=== PATIENT | female | born 1980 | race American Indian/Alaskan Native ===

== ENCOUNTER 2017-10-30 22:28 | Emergency (ER) | payer OTHER | END 2017-10-30 22:30 | disposition left against medical advice (07) | LOC: ED 22:28 | DX: R55 Syncope and collapse (principal); Z88.8 Allergy status to other drugs, medicaments and biological substances; Z53.21 Procedure and treatment not carried out due to patient leaving prior to being seen by health care provider ==

== ENCOUNTER 2019-01-07 17:36 | Emergency (ER) | payer SELFPAY ==
--- NOTE | 2019-01-07 17:57 | Emergency Department Report ---
ED Fall HPI - General Stated Complaint: L HIP/ELBOW INJURY/VOMITING Time Seen by Provider: 01/07/19 17:49 Source: patient Mode of arrival: Stretcher Limitations: Altered Mental Status, Physical Limitation - History of Present Illness Initial Comments: Patient is a 38-year-old female that presents emergent complaints of fall secondary to EtOH. Patient is complaining of headache, head injury, neck pain, left shoulder and arm pain, abdominal pain, left hip and left pelvic pain, left thigh pain. Patient states her pain is 10 out of 10. Patient states her pain is worse with movement and better with lying still. Patient states she drank multiple beers and states she drinks daily. MD Complaint: fall -: Sudden - Related Data Home Medications Medication Instructions Recorded Confirmed Last Taken Metoprolol [Lopressor TAB] 50 mg PO BID 09/26/14 09/26/14 09/26/14 Previous Rx's Medication Instructions Recorded Last Taken Type HYDROcodone/APAP 5-325 [Groom 1 each PO Q6HR PRN #20 tablet 09/26/14 Unknown Rx 5/325] Ibuprofen [Motrin] 600 mg PO Q8H PRN #50 tablet 09/26/14 Unknown Rx Famotidine [Pepcid] 20 mg PO BID #40 tablet 10/08/14 Unknown Rx Lansoprazole [Prevacid 24Hr] 30 mg PO QDAY #30 capsule. 10/08/14 Unknown Rx Penicillin Vk [Veetids TAB] 500 mg PO QID #28 tablet 03/18/15 Unknown Rx Acetaminophen/Codeine [Tylenol 1 tab PO TID PRN #10 tab 01/08/19 Unknown Rx /Codeine # 3 tab] Allergies Allergy/AdvReac Type Severity Reaction Status Date / Time tramadol Allergy Hives Verified 09/26/14 17:25 ED Review of Systems ROS: Stated complaint: L HIP/ELBOW INJURY/VOMITING Other details as noted in HPI Constitutional: denies: chills, fever Eyes: denies: eye pain, eye discharge, vision change ENT: denies: ear pain, throat pain Respiratory: denies: cough, shortness of breath, wheezing Cardiovascular: denies: chest pain, palpitations Endocrine: no symptoms reported Gastrointestinal: abdominal pain. denies: nausea, diarrhea Genitourinary: denies: urgency, dysuria, discharge Musculoskeletal: back pain. denies: joint swelling, arthralgia Skin: denies: rash, lesions Neurological: headache. denies: weakness, paresthesias Psychiatric: denies: anxiety, depression Hematological/Lymphatic: denies: easy bleeding, easy bruising ED Past Medical Hx - Past Medical History Previous Medical History?: Yes Hx Psychiatric Treatment: No Additional medical history: history of SVT - Surgical History Past Surgical History?: No - Family History Family history: no significant - Social History Smoking Status: Current Every Day Smoker Substance Use Type: Alcohol - Medications Home Medications: Home Medications Medication Instructions Recorded Confirmed Last Taken Type HYDROcodone/APAP 5-325 [Groom 1 each PO Q6HR PRN #20 tablet 09/26/14 Unknown Rx 5/325] Ibuprofen [Motrin] 600 mg PO Q8H PRN #50 tablet 09/26/14 Unknown Rx Metoprolol [Lopressor TAB] 50 mg PO BID 09/26/14 09/26/14 09/26/14 History Famotidine [Pepcid] 20 mg PO BID #40 tablet 10/08/14 Unknown Rx Lansoprazole [Prevacid 24Hr] 30 mg PO QDAY #30 capsule. 10/08/14 Unknown Rx Penicillin Vk [Veetids TAB] 500 mg PO QID #28 tablet 03/18/15 Unknown Rx Acetaminophen/Codeine [Tylenol 1 tab PO TID PRN #10 tab 01/08/19 Unknown Rx /Codeine # 3 tab] ED Physical Exam - General Limitations: No Limitations General appearance: alert, in no apparent distress, appears intoxicated - Head Head exam: Present: atraumatic, normocephalic - Eye Eye exam: Present: normal appearance, PERRL Pupils: Present: normal accommodation - ENT ENT exam: Present: mucous membranes dry - Neck Neck exam: Present: normal inspection, tenderness - Respiratory Respiratory exam: Present: normal lung sounds bilaterally. Absent: respiratory distress, wheezes, rales - Cardiovascular Cardiovascular Exam: Present: regular rate, normal rhythm. Absent: systolic murmur, diastolic murmur, rubs, gallop - GI/Abdominal GI/Abdominal exam: Present: soft, tenderness, normal bowel sounds. Absent: distended, guarding, rebound - Rectal Rectal exam: Present: deferred - Extremities Exam Extremities exam: Present: normal inspection, tenderness (left hip tenderness. Left thigh tenderness. Left upper extremity tenderness), other (abrasion noted to left elbow) - Back Exam Back exam: Present: normal inspection, tenderness, vertebral tenderness - Neurological Exam Neurological exam: Present: alert, oriented X3 - Skin Skin exam: Present: warm, dry, normal color, abrasion. Absent: rash ED Course Vital Signs 01/07/19 01/07/19 01/07/19 17:51 19:30 22:00 Temperature 98.6 F Pulse Rate 118 H 95 H 91 H Respiratory 18 16 18 Rate Blood Pressure 120/75 Blood Pressure 110/70 121/84 [Right] O2 Sat by Pulse 98 98 97 Oximetry - Reevaluation(s) Reevaluation #1: Initial evaluation done. Patient was placed in a c-collar by nursing immediately upon arrival due to the patient having neck pain and EtOH. Patient arrived with EMS not in a c-collar. Report received from EMS. 01/07/19 17:49 Reevaluation #2: Patient is complaining of severe pain. Patient will be given another milligram of Dilaudid. CTs are pending 01/07/19 19:40 Reevaluation #3: Discussed all results with patient. Patient will have a repeat blood alcohol level. Patient states she is in pain. Patient will be given Dilaudid. Patient will also be given a food,. C-collar removed 01/07/19 23:27 Reevaluation #4: Discussed all results the patient. I discussed plan of care patient. Patient is stable for discharge however the patient needs to be legally sober or discharge to the care of a family member. Patient given discharge instructions. Patient voiced understanding of discharge instructions. Patient was understanding of plan of care. Patient agrees with plan of care. 01/08/19 02:39 Reevaluation #5: Patient's is here to pickle processor the patient. Patient we signed out to the care and responsibility of the patient's . 01/08/19 02:57 ED Medical Decision Making - Lab Data Result diagrams: 01/07/19 18:09 01/07/19 23:35 - Radiology Data Radiology results: report reviewed, image reviewed interpreted by me: All x-rays negative for fractures. All CT is negative for acute findings. All reports reviewed. No fracture in the C-spine. No fracture in the L or T-spine. No acute findings or signs of trauma on abdominal CT. - Medical Decision Making Condition is a 38-year-old female presents emergency room with a fall patient complaining of multiple complaints. Patient's complaints include neck pain, back pain, abdominal pain, left hip pain, left thigh pain, left shoulder pain, left arm pain. Patient had multiple CTs done and all were negative. Patient had multiple x-rays done and all were negative. Patient also found to have left elbow pain and left elbow abrasion. Patient remained in the ER until patient's family is here to take responsibility for the patient's patient is clinically drunk. Patient also found to be acutely intoxicated. Patient's blood alcohol level elevated. Patient given fluids and banana bag. Patient had also pain and was given Dilaudid. Patient discharged home with Tylenol 3. Patient has taken Tylenol 3 in the past. Patient is allergic to tramadol. - Differential Diagnosis intoxication. Fall. Pain. Strain, contusion, fracture. Critical care attestation.: If time is entered above; I have spent that time in minutes in the direct care of this critically ill patient, excluding procedure time. ED Disposition Clinical Impression: Face pain, Elbow abrasion, non-infected, Left forearm pain, Left thigh pain, Neck pain Acute alcohol intoxication Qualifiers: Complication of substance-induced condition: uncomplicated Qualified Code(s): F10.920 - Alcohol use, unspecified with intoxication, uncomplicated Fall Qualifiers: Encounter type: initial encounter Qualified Code(s): W19.XXXA - Unspecified fall, initial encounter Left shoulder pain Qualifiers: Chronicity: acute Qualified Code(s): M25.512 - Pain in left shoulder Head injury Qualifiers: Encounter type: initial encounter Qualified Code(s): S09.90XA - Unspecified injury of head, initial encounter Back pain Qualifiers: Back pain location: low back pain Chronicity: acute Back pain laterality: midline Sciatica presence: without sciatica Qualified Code(s): M54.5 - Low back pain Abdominal pain Qualifiers: Abdominal location: lower abdomen, unspecified Qualified Code(s): R10.30 - Lower abdominal pain, unspecified Hip pain Qualifiers: Laterality: left Qualified Code(s): M25.552 - Pain in left hip Elbow pain Qualifiers: Laterality: left Qualified Code(s): M25.522 - Pain in left elbow Facial contusion Qualifiers: Encounter type: initial encounter Qualified Code(s): S00.83XA - Contusion of other part of head, initial encounter Headache Qualifiers: Headache type: unspecified Headache chronicity pattern: acute headache Intractability: not intractable Qualified Code(s): R51 - Headache Contusion of hip, left Qualifiers: Encounter type: initial encounter Qualified Code(s): S70.02XA - Contusion of left hip, initial encounter Disposition: TO HOME OR SELFCARE Is pt being admited?: No Does the pt Need Aspirin: No Condition: Stable Instructions: Low Back Strain (ED), Alcohol Intoxication (ED), Abuse of Alcohol (ED), At-Risk Alcohol Use (ED), Acute Low Back Pain (ED), Cervical Sprain (ED), Abrasion (ED), Back Pain (ED), Fall Prevention (ED) Additional Instructions: Patient to follow up with primary care in 2-3 days. Patient to follow-up with orthopedist in 2-3 days. Patient to return to ER if condition worsens. Patient to decrease alcohol intake. patient to follow-up with a call rehabilitation center. Patient to take Tylenol or ibuprofen when necessary for pain. Patient take meds as directed. Patient increase water. Prescriptions: Acetaminophen/Codeine [Tylenol /Codeine # 3 tab] 1 tab PO TID PRN #10 tab PRN Reason: Pain , Severe (7-10) Referrals: PRIMARY CARE, [Primary Care Provider] - 2-3 Days Time of Disposition: 02:42
[2019-01-07 18:19] LABS: Hematocrit 31.3 % (30.3-42.9); Hemoglobin 9.5 gm/dl (10.1-14.3); Mean Corpuscular HGB Conc 30 % (30-34); Mean Corpuscular Volume 75 fl (79-97); Platelet Count 270 K/mm3 (140-440); Red Blood Count 4.19 M/mm3 (3.65-5.03); Red Cell Distribution Width 19.7 % (13.2-15.2)
[2019-01-07] MEDS ORDERED: NACL 0.9% 1000 ML 1,000 ML IV ONE (18:39)
[2019-01-07 18:40] LABS: Albumin 4.2 g/dL (3.9-5); BUN/Creatinine Ratio 11; Blood Urea Nitrogen 8 mg/dL (7-17); Calcium 8.6 mg/dL (8.4-10.2); Hemolysis Index 102
[2019-01-07] MEDS ORDERED: DILAUDID IV ONE ×3 (18:40→23:25)
[2019-01-07] MEDS ORDERED: ZOFRAN IV ONE (18:40)
[2019-01-07] MEDS ORDERED: ZOFRAN ONE (18:43)
[2019-01-07] MEDS ORDERED: DILAUDID ONE (18:43)
[2019-01-07 18:58] LABS: Alanine Aminotransferase 31 units/L (7-56)
[2019-01-07] MEDS ORDERED: VITAMIN B-1 100 MG, FOLVITE 1 MG, INFUVITE 10 ML in NACL 0.9% 1000 ML 1,000 ML IV ONE (19:15)
[2019-01-07 19:38] LABS: Bilirubin,Urine NEG (Negative); Blood,Urine MOD (Negative); Color,Urine Yellow (Yellow); Urobilinogen,Urine < 2.0 mg/dL (<2.0)
[2019-01-07 19:42] LABS: Amphetamine Screen,Urine PRESUMPTIVE NEGATIVE; Benzodiazepines Screen,Urine PRESUMPTIVE NEGATIVE; Cannabinoid Screen,Urine PRESUMPTIVE NEGATIVE; Cocaine Screen,Urine PRESUMPTIVE NEGATIVE; Methadone Screen,Urine PRESUMPTIVE NEGATIVE; Opiate Screen,Urine PRESUMPTIVE NEGATIVE
--- NOTE | 2019-01-07 20:55 | Cat Scan Report ---
CT BRAIN: 01/07/2019 INDICATION / CLINICAL INFORMATION: Trauma. COMPARISON: None available. FINDINGS: BRAIN/INTRACRANIAL STRUCTURES: Unenhanced CT images of the brain demonstrate no evidence of acute int racranial abnormality. Ventricles and sulci are normal in size and shape. There is no evidence of hemorrhage or mass. There are no abnormal extra-axial fluid collections. EXTRACRANIAL STRUCTURES: Unremarkable. IMPRESSION: Negative unenhanced CT of the brain. All CT scans at this location are performed using dose reduction to ALARA by means of automated expos ure control. Signer Name: Jay Leon MD Signed: 01/07/2019 8:51 PM Workstation Name: [id number]
--- NOTE | 2019-01-07 20:58 | Cat Scan Report ---
FACIAL CT 01/07/2019 HISTORY: Trauma FINDINGS: CT images of the facial bones were obtained. Images are evaluated in the axial, coronal, an d sagittal planes. There is no evidence of acute osseous injury. Paranasal sinuses are clear. Orbital structures are normal. IMPRESSION: No acute abnormality. All CT scans at this location are performed using dose reduction to ALARA by means of automated expos ure control. Signer Name: Jay Leon MD Signed: 01/07/2019 8:53 PM Workstation Name: [id number]
--- NOTE | 2019-01-07 21:00 | Cat Scan Report ---
CT CERVICAL SPINE: 01/07/2019 INDICATION / CLINICAL INFORMATION: Trauma. COMPARISON: None available. FINDINGS: CT images of the cervical spine were obtained. Images are evaluated in the axial, coronal, and sagit edwin planes. There is no evidence of acute abnormality. Vertebral body alignment is normal. LEVEL BY LEVEL ANALYSIS: . CRANIOCERVICAL JUNCTION: Unremarkable. PARASPINAL STRUCTURES: Unremarkable. IMPRESSION: No acute abnormality. All CT scans at this location are performed using dose reduction to ALARA by means of automated expos ure control. Signer Name: Jay Leon MD Signed: 01/07/2019 8:56 PM Workstation Name: [id number]
--- NOTE | 2019-01-07 21:02 | Cat Scan Report ---
CT thoracic SPINE: 01/07/2019 INDICATION / CLINICAL INFORMATION: Trauma. COMPARISON: None available. FINDINGS: CT images of the thoracic spine were obtained. Images are evaluated in the axial, coronal, and sagit edwin planes. There is no evidence of acute abnormality. Vertebral body alignment is unremarkable. A mild left conv ex scoliosis is present. PARASPINAL STRUCTURES: Unremarkable. IMPRESSION: No acute abnormality. All CT scans at this location are performed using dose reduction to ALARA by means of automated expos ure control. Signer Name: Jay Leon MD Signed: 01/07/2019 8:58 PM Workstation Name: [id number]
--- NOTE | 2019-01-07 21:14 | Cat Scan Report ---
CT LUMBAR SPINE: 01/07/2019 INDICATION / CLINICAL INFORMATION: Trauma. COMPARISON: None available. FINDINGS: CT images of the lumbar spine were obtained. Images are evaluated in the axial, coronal, and sagitta l planes. There is no evidence of acute abnormality. Vertebral body height and alignment is normal. There is no evidence of disc herniation or nerve root compression. PARASPINAL STRUCTURES: Unremarkable. IMPRESSION: No acute abnormality. All CT scans at this location are performed using dose reduction to ALARA by means of automated expos ure control. Signer Name: Jay Leon MD Signed: 01/07/2019 9:10 PM Workstation Name: [id number]
--- NOTE | 2019-01-07 21:34 | Cat Scan Report ---
CT ABDOMEN AND PELVIS WITH CONTRAST INDICATION: Abdominal pain after fall. Alcohol intoxication. COMPARISON: No relevant prior imaging study available. TECHNIQUE: Axial, coronal and sagittal CT imaging of the abdomen and pelvis was performed after inje ction of 100 mL Omnipaque [address] scans at this location are performed using CT dose re duction for ALARA by means of automated exposure control. FINDINGS: LOWER CHEST: There is mild dependent bilateral atelectasis. No additional significant abnormality. LIVER: Generalized steatosis is noted without an additional significant abnormality. BILIARY: No significant abnormality. PANCREAS: No significant abnormality. SPLEEN: No significant abnormality. ADRENALS: No significant abnormality. KIDNEYS AND URETERS: A subcentimeter cyst is seen along the left lower renal pole. No additional sign ificant abnormality. GI TRACT: No significant abnormality of the stomach, small bowel or colon. Unremarkable appendix. PERITONEUM: No free fluid. No free air. No fluid collection. LYMPH NODES: No significant adenopathy. VASCULATURE: No significant abnormality. URINARY BLADDER: No significant abnormality. REPRODUCTIVE ORGANS: No significant abnormality. ADDITIONAL FINDINGS: None. SKELETAL SYSTEM: No acute abnormality. IMPRESSION: 1. No acute abnormality of the abdomen or pelvis. 2. Additional findings as above. Signer Name: Ben Cheema MD Signed: 01/07/2019 9:29 PM Workstation Name: [id number]
--- NOTE | 2019-01-07 22:56 | XRay Report ---
LEFT ELBOW 4 VIEWS INDICATION / CLINICAL INFORMATION: Left elbow pain after fall. COMPARISON: None available. FINDINGS: BONES and JOINT(S): No acute fracture or subluxation. No significant arthritis. SOFT TISSUES: No significant abnormality. ADDITIONAL FINDINGS: None. IMPRESSION: No significant abnormality of the left elbow. Signer Name: Ben Cheema MD Signed: 01/07/2019 10:51 PM Workstation Name: [id number]
--- NOTE | 2019-01-07 22:57 | XRay Report ---
LEFT FEMUR 4 VIEWS INDICATION / CLINICAL INFORMATION: Left leg pain after fall. COMPARISON: None available. FINDINGS: BONES and JOINT(S): No acute fracture or subluxation. No significant arthritis. SOFT TISSUES: No significant abnormality. ADDITIONAL FINDINGS: None. IMPRESSION: No acute abnormality of the left femur. Signer Name: Ben Cheema MD Signed: 01/07/2019 10:53 PM Workstation Name: [id number]
--- NOTE | 2019-01-07 22:57 | XRay Report ---
LEFT SHOULDER 3 VIEWS INDICATION / CLINICAL INFORMATION: Left shoulder pain after fall. COMPARISON: None available. FINDINGS: BONES and JOINT(S): No acute fracture or subluxation. No significant arthritis. SOFT TISSUES: No significant abnormality. ADDITIONAL FINDINGS: None. IMPRESSION: No acute abnormality of the left shoulder. Signer Name: Ben Cheema MD Signed: 01/07/2019 10:52 PM Workstation Name: [id number]
[2019-01-08 00:06] LABS: BUN/Creatinine Ratio 13; Blood Urea Nitrogen 8 mg/dL (7-17); Calcium 8.5 mg/dL (8.4-10.2); Hemolysis Index 48
[2019-01-08] MEDS ORDERED: NACL 0.9% 1000 ML 1,000 ML IV ONE (00:56)
[2019-01-08 01:17] VITALS: BP 121/84
[2019-01-08] MEDS ORDERED: ZOFRAN ONE (02:39)
[2019-01-08] MEDS ORDERED: BOOSTRIX IM ONE (02:43)
[2019-01-08] MEDS ORDERED: ZOFRAN IV ONE (02:47)
== END 2019-01-08 03:00 | disposition home or self-care (01) ==
LOC: ED 17:36
DX: S00.83XA Contusion of other part of head, initial encounter (principal); S70.02XA Contusion of left hip, initial encounter; S50.312A Abrasion of left elbow, initial encounter; F10.920 Alcohol use, unspecified with intoxication, uncomplicated; R10.30 Lower abdominal pain, unspecified; M25.512 Pain in left shoulder; M54.2 Cervicalgia; M79.652 Pain in left thigh; F17.200 Nicotine dependence, unspecified, uncomplicated; Z79.899 Other long term (current) drug therapy; Z88.6 Allergy status to analgesic agent; W18.30XA Fall on same level, unspecified, initial encounter; Y93.89 Activity, other specified; Y92.89 Other specified places as the place of occurrence of the external cause; Y99.8 Other external cause status
CPT/HCPCS: 36415; 70450; 70486; 72125; 72128; 72131; 73030; 73080; 73552; 74177; 80048; 80053; 80307; 81001; 84703; 85027; 90471; 90715; 96361; 96365; 96366; 96375; 96376; 99285; J1170; J2405; J3411; J7030; Q9967; 80320; G0480

== ENCOUNTER 2019-05-02 23:44 | Emergency (ER) | payer SELFPAY ==
--- NOTE | 2019-05-03 00:16 | Emergency Department Report ---
<LISA KHOURY - Last Filed: 05/03/19 00:44> ED Psych HPI - General Chief Complaint: Psych Stated Complaint: SI/MH Time Seen by Provider: 05/03/19 00:10 Source: EMS Mode of arrival: Ambulatory - History of Present Illness Initial Comments: CC: "I was going to kill myself. I am just tired of life." HPI: Mrs. Dang is a 39 yo female with hx of SVT who presents with depressed mood for the past 3-4 days. She planned to use a knife to end her life. She broke up with her significant other recently. She denies physical complaints. No HI. According to electronic medical record, Mrs. Dang was evaluated in 2014 in this ED for depression and suicide attempt with overdose of pills. She was transferred to psychiatric facility at that time. MD Complaint: suicidal ideation, feels depressed -: Gradual, days(s) (4) Associated Psychiatric Symptoms: depression, suicidal ideation History of same: No Quality: constant Improves With: none Worsens With: none Context: significant life stressor Associated Symptoms: denies other symptoms Treatments Prior to Arrival: none If Self Harm: admits thoughts of, has plan - Related Data Home Medications Medication Instructions Recorded Confirmed Last Taken No Known Home Medications [No 05/03/19 05/03/19 Unknown Reported Home Medications] Allergies Allergy/AdvReac Type Severity Reaction Status Date / Time tramadol Allergy Hives Verified 09/26/14 17:25 ED Review of Systems Comment: All other systems reviewed and negative Constitutional: denies: fever, malaise Respiratory: denies: cough, shortness of breath Gastrointestinal: denies: abdominal pain, nausea, vomiting Psychiatric: depression, suicidal thoughts. denies: auditory hallucinations, visual hallucinations, homicidal thoughts ED Past Medical Hx - Past Medical History Previous Medical History?: Yes Hx Psychiatric Treatment: No Additional medical history: history of SVT - Surgical History Past Surgical History?: Yes Additional Surgical History: elbow surgeries? - Social History Smoking Status: Never Smoker Substance Use Type: Alcohol - Medications Home Medications: Home Medications Medication Instructions Recorded Confirmed Last Taken Type No Known Home Medications [No 05/03/19 05/03/19 Unknown History Reported Home Medications] ED Physical Exam - General Limitations: No Limitations General appearance: alert, in no apparent distress, other (tearful, upset) - Head Head exam: Present: atraumatic, normocephalic - Eye Eye exam: Present: normal appearance - ENT ENT exam: Present: mucous membranes moist - Neck Neck exam: Present: normal inspection, full ROM. Absent: tenderness, meningismus - Respiratory Respiratory exam: Present: normal lung sounds bilaterally. Absent: respiratory distress, wheezes, rales, rhonchi - Cardiovascular Cardiovascular Exam: Present: regular rate, normal rhythm, normal heart sounds. Absent: systolic murmur, diastolic murmur, rubs, gallop - GI/Abdominal GI/Abdominal exam: Present: soft, normal bowel sounds. Absent: distended, tenderness, guarding, rebound - Extremities Exam Extremities exam: Present: normal inspection - Back Exam Back exam: Present: normal inspection - Neurological Exam Neurological exam: Present: alert, oriented X3 - Psychiatric Psychiatric exam: Present: depressed, suicidal ideation - Skin Skin exam: Present: warm, dry, intact, normal color. Absent: rash ED Medical Decision Making - Medical Decision Making Mrs. Dang presents with acute depression with plan to use a knife to kill herself. She will be held in the ED until evaluated by our psychiatric team. She is medically clear for psychiatric care. I have reviewed the labs obtained which are all within in acceptable limits. ED Disposition Clinical Impression: Depression Qualifiers: Depression Type: unspecified Qualified Code(s): F32.9 - Major depressive disorder, single episode, unspecified Disposition: DC-01 TO HOME OR SELFCARE Condition: Stable Instructions: Depression (ED) Additional Instructions: Please follow up with Out patient Behavioral Resources you were given. [facility] [phone] [facility] [id number] [phone] [facility] [phone] Return to ER for any worsening symptoms and or follow up with PCP. Referrals: PRIMARY CARE, [Primary Care Provider] - 3-5 Days <ELDA ALEGRIA - Last Filed: 05/03/19 14:51> ED Review of Systems ROS: Stated complaint: SI/MH Other details as noted in HPI ED Course Vital Signs 05/02/19 05/03/19 05/03/19 23:48 01:00 07:00 Temperature 98.4 F 98.4 F 98.8 F Pulse Rate 87 80 89 Respiratory 18 18 18 Rate Blood Pressure 130/71 124/70 133/76 [right] O2 Sat by Pulse 100 100 100 Oximetry ED Medical Decision Making - Lab Data Result diagrams: 05/03/19 00:33 05/03/19 00:33 - Medical Decision Making Patient evaluated by Mental health interior assemblies developer prover and deemed to safe to discharge home. Discharge safety plan initiated and patient given out patient behavioral resources. Critical care attestation.: If time is entered above; I have spent that time in minutes in the direct care of this critically ill patient, excluding procedure time. ED Disposition Is pt being admited?: No Does the pt Need Aspirin: No Time of Disposition: 14:51
[2019-05-03 00:39] LABS: Amphetamine Screen,Urine PRESUMPTIVE NEGATIVE; Benzodiazepines Screen,Urine PRESUMPTIVE NEGATIVE; Cannabinoid Screen,Urine PRESUMPTIVE NEGATIVE; Cocaine Screen,Urine PRESUMPTIVE NEGATIVE; Methadone Screen,Urine PRESUMPTIVE NEGATIVE; Opiate Screen,Urine PRESUMPTIVE NEGATIVE
[2019-05-03 00:41] LABS: Bacteria,Urine 2+ /HPF (Negative); Bilirubin,Urine NEG (Negative); Blood,Urine MOD (Negative); Color,Urine Straw (Yellow); Protein,Urine <15 mg/dL mg/dL (Negative); Urobilinogen,Urine < 2.0 mg/dL (<2.0)
[2019-05-03] MEDS ORDERED: LORazepam 1 MG TAB PO ONE (00:48)
[2019-05-03 01:10] LABS: Basophils # (Auto) 0.1 K/mm3 (0.0-0.1); Eosinophils # (Auto) 0.1 K/mm3 (0.0-0.4); Monocytes # (Auto) 0.4 K/mm3 (0.0-0.8); Monocytes % (Auto) 7.3 % (0.0-7.3)
[2019-05-03 01:30] LABS: Alanine Aminotransferase 12 units/L (7-56); Albumin 4.2 g/dL (3.9-5); BUN/Creatinine Ratio 16; Blood Urea Nitrogen 11 mg/dL (7-17); Hemolysis Index 32
[2019-05-03 01:35] LABS: Hematocrit 31.5 % (30.3-42.9); Hemoglobin 9.9 gm/dl (10.1-14.3); Mean Corpuscular HGB Conc 32 % (30-34); Mean Corpuscular Volume 70 fl (79-97); Mean Platelet Volume 8.7 fl (6-12); Platelet Count 285 K/mm3 (140-440); Red Blood Count 4.48 M/mm3 (3.65-5.03); Red Cell Distribution Width 21.8 % (13.2-15.2)
[2019-05-03 01:36] LABS: Lymphocytes # (Auto) 2.1 K/mm3 (1.2-5.4); Lymphocytes % (Auto) 36.4 % (13.4-35.0)
[2019-05-03 02:00] LABS: Calcium 9.3 mg/dL (8.4-10.2)
[2019-05-03 07:35] VITALS: BP 133/76
== END 2019-05-03 15:07 | disposition home or self-care (01) ==
LOC: ED 23:44
DX: F32.9 Major depressive disorder, single episode, unspecified (principal); T14.91XA Suicide attempt, initial encounter
CPT/HCPCS: 36415; 80053; 80307; 80320; 81001; 84703; 85025; G0480

== ENCOUNTER 2019-06-15 19:11 | Emergency (ER) | payer SELFPAY ==
[2019-06-15] MEDS ORDERED: ASPIRIN 325 MG TAB PO ONE (19:55)
[2019-06-15 20:36] LABS: Basophils # (Auto) 0.1 K/mm3 (0.0-0.1); Basophils % (Auto) 1.6 % (0.0-1.8); Eosinophils # (Auto) 0.1 K/mm3 (0.0-0.4); Eosinophils % (Auto) 2.2 % (0.0-4.3); Hematocrit 31.4 % (30.3-42.9); Hemoglobin 9.9 gm/dl (10.1-14.3); Lymphocytes % (Auto) 39.1 % (13.4-35.0); Mean Corpuscular HGB Conc 32 % (30-34); Mean Corpuscular Volume 73 fl (79-97); Monocytes # (Auto) 0.5 K/mm3 (0.0-0.8); Monocytes % (Auto) 10.2 % (0.0-7.3); Platelet Count 297 K/mm3 (140-440)
[2019-06-15 20:37] LABS: Red Cell Distribution Width 24.1 % (13.2-15.2)
[2019-06-15 20:58] LABS: BUN/Creatinine Ratio 20; Blood Urea Nitrogen 10 mg/dL (7-17); Hemolysis Index 0
--- NOTE | 2019-06-15 21:03 | XRay Report ---
CHEST 2 VIEWS, 06/15/2019 8:03 PM INDICATION: Chest pain COMPARISON: None FINDINGS: Support devices: None Heart: The heart is normal in size. Lungs/pleura: The lungs are clear of focal airspace disease or significant pleural effusion. Additional findings: No significant acute abnormality. IMPRESSION: 1. No evidence of acute cardiopulmonary process. Signer Name: Rayne Tillman MD Signed: 06/15/2019 8:58 PM Workstation Name: [id number]
[2019-06-15] MEDS ORDERED: chlordiazePOXIDE 25 MG CAP PO ONE (23:07)
[2019-06-15] MEDS ORDERED: FAMOTIDINE 20 MG TAB PO ONE (23:07)
[2019-06-15] MEDS ORDERED: KETOROLAC 30 MG/1 ML INJ IM ONE (23:07)
--- NOTE | 2019-06-15 23:14 | Emergency Department Report ---
ED General Adult HPI - General Chief complaint: Chest Pain Stated complaint: CP, HEART BEATING FAST,DIZZY Time Seen by Provider: 06/15/19 22:11 Source: patient, RN notes reviewed, old records reviewed Mode of arrival: Ambulatory Limitations: No Limitations - History of Present Illness Initial comments: During the entire history and physical examination, I am duplicator punch operator and escorted by nurse Ana M Figueroa The patient is a 39-year-old female. The patient is not known to myself previously. The patient states that she is not . She has a history of alcoholism. Patient presents to the ER with 2 complaints. First complaint is central and left-sided chest wall pain and tightness. The pain and tightness are intermittent over the past day. It occasionally radiates to the back. The patient denies oral contraceptive use, recent surgery, and denies DVT and pulmonary embolism risk factors. No recent aspirin consumption. There is no exertional shortness of breath. There is no family history of heart disease or PE that she is aware of. Her secondary complaint is request for alcohol detox. She drinks quite frequently. She is not homicidal or suicidal. She's not had withdrawal seizures. She is not experiencing hallucinations. -: Gradual, hour(s) Location: chest Radiation: other Quality: other Consistency: other Improves with: other Worsens with: other Associated Symptoms: other - Related Data Previous Rx's Medication Instructions Recorded Last Taken Type Multivitamin with Folic Acid [Cvs 400 mcg PO QDAY #30 tablet 06/16/19 Unknown Rx One Daily Essential Tablet] chlordiazePOXIDE [Librium] 25 mg PO Q6H PRN #25 capsule 06/16/19 Unknown Rx Allergies Allergy/AdvReac Type Severity Reaction Status Date / Time bee venom protein (honey bee) Allergy Unknown Verified 06/15/19 19:30 tramadol Allergy Hives Verified 09/26/14 17:25 ED Review of Systems ROS: Stated complaint: CP, HEART BEATING FAST,DIZZY Other details as noted in HPI Constitutional: denies: fever Eyes: denies: eye discharge ENT: denies: congestion Respiratory: denies: wheezing Cardiovascular: chest pain. denies: syncope Gastrointestinal: denies: vomiting Genitourinary: denies: dysuria Musculoskeletal: myalgia Skin: denies: lesions Neurological: weakness Psychiatric: anxiety. denies: homicidal thoughts, suicidal thoughts Hematological/Lymphatic: denies: easy bleeding ED Past Medical Hx - Past Medical History Hx Psychiatric Treatment: No Additional medical history: history of SVT - Surgical History Additional Surgical History: elbow surgeries? - Social History Smoking Status: Current Every Day Smoker Substance Use Type: Alcohol - Medications Home Medications: Home Medications Medication Instructions Recorded Confirmed Last Taken Type Multivitamin with Folic Acid [Cvs 400 mcg PO QDAY #30 tablet 06/16/19 Unknown Rx One Daily Essential Tablet] chlordiazePOXIDE [Librium] 25 mg PO Q6H PRN #25 capsule 06/16/19 Unknown Rx ED Physical Exam - General Limitations: No Limitations General appearance: alert, in no apparent distress - Head Head exam: Present: atraumatic, normocephalic - Eye Eye exam: Present: normal appearance, PERRL, EOMI. Absent: nystagmus - ENT ENT exam: Present: normal exam, normal orophraynx, mucous membranes moist, normal external ear exam - Neck Neck exam: Present: normal inspection, full ROM. Absent: tenderness, meningismus - Respiratory Respiratory exam: Present: normal lung sounds bilaterally, chest wall tenderness, other (chaperoned by nurse Figueroa). Absent: respiratory distress, wheezes, rales, rhonchi, stridor - Cardiovascular Cardiovascular Exam: Present: regular rate, normal rhythm, normal heart sounds. Absent: bradycardia, tachycardia, irregular rhythm, systolic murmur, diastolic murmur, rubs, gallop - GI/Abdominal GI/Abdominal exam: Present: soft, normal bowel sounds. Absent: distended, tenderness, guarding, rebound, rigid, pulsatile mass - Extremities Exam Extremities exam: Present: normal inspection, full ROM, other (2+ pulses noted in the bilateral upper and lower extremities. There is no long bony tenderness. The pelvis is stable. The muscular compartments are soft. There is no palpab le cord. There is no redness, pus or streaking.). Absent: pedal edema, calf tenderness - Back Exam Back exam: Present: normal inspection. Absent: tenderness, CVA tenderness (R), CVA tenderness (L), paraspinal tenderness, vertebral tenderness - Neurological Exam Neurological exam: Present: alert, oriented X3, other (there is no facial droop. Tongue is midline. Extraocular movements are intact bilaterally. Walking with a steady gait. Speaking in full sentences. Normal appropriate thought content. 5 out of 5 strength in 4 extremities. Sensation is intact to light touch in 4 extremities.). Absent: motor sensory deficit - Psychiatric Psychiatric exam: Present: anxious. Absent: homicidal ideation, suicidal ideation - Skin Skin exam: Present: warm, dry, intact, normal color. Absent: rash ED Course Vital Signs 06/15/19 19:53 Temperature 98.5 F Pulse Rate 91 H Respiratory 20 Rate Blood Pressure 144/78 O2 Sat by Pulse 100 Oximetry - Reevaluation(s) Reevaluation #1: 06/16/19 00:16 Differential diagnosis, including but not limited to: Costochondritis, GERD, gastritis, alcoholic gastritis, pneumonia, acute coronary syndrome, alcohol dependence Assessment and plan: 39-year-old female with 2 complaints Complaint #1, reproducible chest wall pain. Troponin negative 2. EKG unchanged 2. Patient at low risk for major adverse cardiac event as per heart score. Endorses no DVT or pulmonary embolus risk factors, low risk by well's criteria, has equal pulses in bilateral upper and lower extremities, unremarkable x-ray of the chest, history, physical are very unlikely to be consistent with aortic disease, and she is perc negative. She can be treated supportively and symptomatically for her chest wall pain, and follow up with an outpatient primary care doctor or computer repairer. Complaint #2, alcohol dependence Patient is not actively seizing or withdrawing at this time. Indeed, when I walk into the room to evaluate the patient, she was sleeping comfortably on her stretcher, and she was in no acute distress. she does not meet 1013/2013 criteria. She does not appear to be withdrawing at this time. Patient can be given referral for outpatient resources and detox, she can be started a multivitamin, and lithium therapy, and she can follow up with outpatient resources and/or primary care. Patient is observed in the ER for hours without clinical decompensation. Blood-alcohol level is elevated at this time. The patient is mildly intoxicated. She is accompanied by her significant other. Her significant other indicates that he feels safe and comfortable to take the patient home with outpatient resources. 06/16/19 00:19 ED Medical Decision Making - Lab Data Result diagrams: 06/15/19 20:21 06/15/19 20:21 Vital Signs 06/15/19 19:53 Temperature 98.5 F Pulse Rate 91 H Respiratory 20 Rate Blood Pressure 144/78 O2 Sat by Pulse 100 Oximetry Lab Results 06/15/19 06/15/19 06/15/19 Range/Units 20:21 20:21 23:29 WBC 5.1 (4.5-11.0) K/mm3 RBC 4.30 (3.65-5.03) M/mm3 Hgb 9.9 L (10.1-14.3) gm/dl Hct 31.4 (30.3-42.9) % MCV 73 L (79-97) fl MCH 23 L (28-32) pg MCHC 32 (30-34) % RDW 24.1 H (13.2-15.2) % Plt Count 297 (140-440) K/mm3 Lymph % (Auto) 39.1 H (13.4-35.0) % Harris % (Auto) 10.2 H (0.0-7.3) % Eos % (Auto) 2.2 (0.0-4.3) % Baso % (Auto) 1.6 (0.0-1.8) % Lymph # 2.0 (1.2-5.4) K/mm3 Harris # 0.5 (0.0-0.8) K/mm3 Eos # 0.1 (0.0-0.4) K/mm3 Baso # 0.1 (0.0-0.1) K/mm3 Seg Neutrophils % 46.9 (40.0-70.0) % Seg Neutrophils # 2.4 (1.8-7.7) K/mm3 Sodium 141 (137-145) mmol/L Potassium 3.9 (3.6-5.0) mmol/L Chloride 101.2 (98-107) mmol/L Carbon Dioxide 21 L (22-30) mmol/L Anion Gap 23 mmol/L BUN 10 (7-17) mg/dL Creatinine 0.5 L (0.7-1.2) mg/dL Estimated GFR > 60 ml/min BUN/Creatinine Ratio 20 % Glucose 94 (65-100) mg/dL Calcium 9.0 (8.4-10.2) mg/dL Magnesium 1.80 (1.7-2.3) mg/dL Total Creatine Kinase 117 (30-135) units/L Troponin T < 0.010 < 0.010 (0.00-0.029) ng/mL HCG, Quant (0-4) mIU/mL Salicylates (2.8-20.0) mg/dL Acetaminophen (10.0-30.0) ug/mL Plasma/Serum Alcohol (0-0.07) % 06/15/19 06/15/19 06/15/19 Range/Units 23:29 23:29 23:29 WBC (4.5-11.0) K/mm3 RBC (3.65-5.03) M/mm3 Hgb (10.1-14.3) gm/dl Hct (30.3-42.9) % MCV (79-97) fl MCH (28-32) pg MCHC (30-34) % RDW (13.2-15.2) % Plt Count (140-440) K/mm3 Lymph % (Auto) (13.4-35.0) % Harris % (Auto) (0.0-7.3) % Eos % (Auto) (0.0-4.3) % Baso % (Auto) (0.0-1.8) % Lymph # (1.2-5.4) K/mm3 Harris # (0.0-0.8) K/mm3 Eos # (0.0-0.4) K/mm3 Baso # (0.0-0.1) K/mm3 Seg Neutrophils % (40.0-70.0) % Seg Neutrophils # (1.8-7.7) K/mm3 Sodium (137-145) mmol/L Potassium (3.6-5.0) mmol/L Chloride (98-107) mmol/L Carbon Dioxide (22-30) mmol/L Anion Gap mmol/L BUN (7-17) mg/dL Creatinine (0.7-1.2) mg/dL Estimated GFR ml/min BUN/Creatinine Ratio % Glucose (65-100) mg/dL Calcium (8.4-10.2) mg/dL Magnesium (1.7-2.3) mg/dL Total Creatine Kinase (30-135) units/L Troponin T (0.00-0.029) ng/mL HCG, Quant < 2 (0-4) mIU/mL Salicylates < 0.3 L (2.8-20.0) mg/dL Acetaminophen < 5.0 L (10.0-30.0) ug/mL Plasma/Serum Alcohol (0-0.07) % 06/15/19 Range/Units 23:29 WBC (4.5-11.0) K/mm3 RBC (3.65-5.03) M/mm3 Hgb (10.1-14.3) gm/dl Hct (30.3-42.9) % MCV (79-97) fl MCH (28-32) pg MCHC (30-34) % RDW (13.2-15.2) % Plt Count (140-440) K/mm3 Lymph % (Auto) (13.4-35.0) % Harris % (Auto) (0.0-7.3) % Eos % (Auto) (0.0-4.3) % Baso % (Auto) (0.0-1.8) % Lymph # (1.2-5.4) K/mm3 Harris # (0.0-0.8) K/mm3 Eos # (0.0-0.4) K/mm3 Baso # (0.0-0.1) K/mm3 Seg Neutrophils % (40.0-70.0) % Seg Neutrophils # (1.8-7.7) K/mm3 Sodium (137-145) mmol/L Potassium (3.6-5.0) mmol/L Chloride (98-107) mmol/L Carbon Dioxide (22-30) mmol/L Anion Gap mmol/L BUN (7-17) mg/dL Creatinine (0.7-1.2) mg/dL Estimated GFR ml/min BUN/Creatinine Ratio % Glucose (65-100) mg/dL Calcium (8.4-10.2) mg/dL Magnesium (1.7-2.3) mg/dL Total Creatine Kinase (30-135) units/L Troponin T (0.00-0.029) ng/mL HCG, Quant (0-4) mIU/mL Salicylates (2.8-20.0) mg/dL Acetaminophen (10.0-30.0) ug/mL Plasma/Serum Alcohol 0.20 H (0-0.07) % - EKG Data -: EKG Interpreted by In EKG shows normal: sinus rhythm Rate: normal - EKG Data 06/16/19 00:18 EKG #1 shows a sinus rhythm, normal axis, QTC 459 ms, borderline high left ventricular voltages, not consistent with STEMI. Rate 90 bpm. EKG unchanged from prior. - Radiology Data Radiology results: report reviewed, image reviewed X-ray of the chest is negative for acute disease Critical care attestation.: If time is entered above; I have spent that time in minutes in the direct care of this critically ill patient, excluding procedure time. ED Disposition Clinical Impression: Chest wall pain, Alcohol dependence Disposition: - TO HOME OR SELFCARE Is pt being admited?: No Does the pt Need Aspirin: No Condition: Stable Additional Instructions: Recommend the patient minimize, or abstain alcohol consumption. Take multivitamins as directed, and Librium as needed for sensation of alcohol dependence and withdrawal. Recommend patient follow up with an outpatient primary care doctor or addiction center for alcohol withdrawal. Patient may follow up at [facility], [facility], or the facility of her choice. At this point in time, patient does not appear to have an immediate medical contraindication to alcohol detox and therapy. Patient may take [id number] Pepcid, 20 mg by mouth, every 12-24 hours, alternating with [id number] ibuprofen, 400 mg by mouth, with food, every 6 hours, alternating with Tylenol, 325 mg by mouth, every 4-6 hours, as needed for pain. We recommend follow-up with a primary care doctor within the next 7- 10 days. Return to the emergency room right away with new, worsening or different sy mptoms, or symptoms not present on initial emergency room evaluation. Patient may follow-up with her primary care doctor or computer repairer for her chest wall pain within the next 3-5 days. Referrals: [facility] [Provider Group] - 3-5 Days [facility] [Provider Group] - 3-5 Days [facility] [Outside] - 3-5 Days MADIHA RUSSO MD [Primary Care Provider] - 3-5 Days [facility] [Provider Group] - 3-5 Days
[2019-06-16 00:27] VITALS: BP 143/84
== END 2019-06-16 01:00 | disposition home or self-care (01) ==
LOC: ED 19:11
DX: R07.89 Other chest pain (principal); F10.20 Alcohol dependence, uncomplicated; F17.200 Nicotine dependence, unspecified, uncomplicated; Z98.890 Other specified postprocedural states; Z79.899 Other long term (current) drug therapy; Z91.030 Bee allergy status; Z88.6 Allergy status to analgesic agent
CPT/HCPCS: 36415; 71046; 80048; 82550; 83735; 84484; 84702; 85025; 93005; 93010; 96372; 99284; J1885; 80320; G0480

== ENCOUNTER 2019-08-03 15:52 | Emergency (ER) | payer SELFPAY ==
--- NOTE | 2019-08-03 17:10 | Emergency Department Report ---
Blank Doc - Documentation Documentation: 39-year-old female that presents with flank pain, dysuria, and cough. Tachycardia in the triage. This initial assessment/diagnostic orders/clinical plan/treatment(s) is/are subject to change based on patient's health status, clinical progression and re- assessment by fellow clinical providers in the ED. Further treatment and workup at subsequent clinical providers discretion. Patient/guardians urged not to elope from the ED as their condition may be serious if not clinically assessed and managed. Initial orders include: 1- Patient sent to [facility] for further evaluation and treatment 2- UA 3- CXR
[2019-08-03 18:42] LABS: HCG Qualitative,Urine Negative (Negative)
[2019-08-03 18:43] LABS: Bacteria,Urine 1+ /HPF (Negative); Bilirubin,Urine NEG (Negative); Blood,Urine SM (Negative); Color,Urine Yellow (Yellow); Mucus,Urine 2+ /HPF; Urobilinogen,Urine < 2.0 mg/dL (<2.0)
--- NOTE | 2019-08-03 19:22 | XRay Report ---
CHEST 2 VIEWS INDICATION / CLINICAL INFORMATION: MAIN: cough; SOB, NAUSEA, AND LOWER BACK PAIN X 2 DAYS STATES SHE HAS A SLIGHT COUGH BUT SHE SMOKES C IGARETTES SO SHE ALWAYS HAS A COUGH . COMPARISON: 06/15/2019 FINDINGS: SUPPORT DEVICES: None. HEART / MEDIASTINUM: No significant abnormality. LUNGS / PLEURA: No significant pulmonary or pleural abnormality. No pneumothorax. ADDITIONAL FINDINGS: No significant additional findings. IMPRESSION: 1. No acute findings. Signer Name: Isac Riddle MD Signed: 08/03/2019 7:17 PM Workstation Name: [id number]
[2019-08-03] MEDS ORDERED: ALPRAZolam 0.5 MG TAB PO STA (20:00)
[2019-08-03 20:01] VITALS: BP 146/83
--- NOTE | 2019-08-03 20:48 | Emergency Department Report ---
ED General Adult HPI - General Chief complaint: Upper Respiratory Infection Stated complaint: FEVER Time Seen by Provider: 08/03/19 17:09 Source: patient, EMS Mode of arrival: Stretcher Limitations: No Limitations - Related Data Previous Rx's Medication Instructions Recorded Last Taken Type Multivitamin with Folic Acid [[facility]vs 400 mcg PO QDAY #30 tablet 06/16/19 Unknown Rx One Daily Essential Tablet] chlordiazePOXIDE [Librium] 25 mg PO Q6H PRN #25 capsule 06/16/19 Unknown Rx chlordiazePOXIDE [Librium] 25 mg PO Q6H #30 capsule 08/03/19 Unknown Rx Allergies Allergy/AdvReac Type Severity Reaction Status Date / Time bee venom protein (honey bee) Allergy Unknown Verified 06/15/19 19:30 tramadol Allergy Hives Verified 09/26/14 17:25 ED Review of Systems ROS: Stated complaint: FEVER Other details as noted in HPI Comment: All other systems reviewed and negative ED Past Medical Hx - Past Medical History Previous Medical History?: No Hx Psychiatric Treatment: No Additional medical history: history of SVT - Surgical History Past Surgical History?: Yes Additional Surgical History: elbow surgeries? BILATERAL CAPREL TUNNEL SURGERY 2017 - Social History Smoking Status: Current Every Day Smoker Substance Use Type: Alcohol - Medications Home Medications: Home Medications Medication Instructions Recorded Confirmed Last Taken Type Multivitamin with Folic Acid [Cvs 400 mcg PO QDAY #30 tablet 06/16/19 Unknown Rx One Daily Essential Tablet] chlordiazePOXIDE [Librium] 25 mg PO Q6H PRN #25 capsule 06/16/19 Unknown Rx chlordiazePOXIDE [Librium] 25 mg PO Q6H #30 capsule 08/03/19 Unknown Rx ED Physical Exam - General Limitations: No Limitations General appearance: alert, in no apparent distress - Head Head exam: Present: atraumatic, normocephalic - Eye Eye exam: Present: normal appearance, PERRL, EOMI Pupils: Present: normal accommodation - ENT ENT exam: Present: normal exam, normal orophraynx, mucous membranes moist - Neck Neck exam: Present: normal inspection. Absent: tenderness, meningismus - Respiratory Respiratory exam: Present: normal lung sounds bilaterally. Absent: respiratory distress, rhonchi, stridor, chest wall tenderness - Cardiovascular Cardiovascular Exam: Present: regular rate, normal rhythm. Absent: bradycardia, tachycardia, systolic murmur, diastolic murmur, rubs, gallop - GI/Abdominal GI/Abdominal exam: Present: soft, normal bowel sounds. Absent: tenderness, guarding - Extremities Exam Extremities exam: Present: normal inspection - Back Exam Back exam: Present: normal inspection - Neurological Exam Neurological exam: Present: alert, oriented X3 - Psychiatric Psychiatric exam: Present: normal affect, normal mood - Skin Skin exam: Present: warm, dry, intact, normal color. Absent: rash ED Course Vital Signs 08/03/19 08/03/19 08/03/19 16:08 17:13 19:45 Temperature 98.4 F 98.5 F 98.2 F Pulse Rate 98 H 91 H 90 Respiratory 18 16 18 Rate Blood Pressure 148/99 Blood Pressure 123/87 146/83 [Left] O2 Sat by Pulse 100 99 99 Oximetry Critical care attestation.: If time is entered above; I have spent that time in minutes in the direct care of this critically ill patient, excluding procedure time. ED Disposition Disposition: DC-01 TO HOME OR SELFCARE Condition: Stable Instructions: Abuse of Alcohol (ED), Cold Symptoms (ED) Prescriptions: chlordiazePOXIDE [Librium] 25 mg PO Q6H #30 capsule Referrals: [facility] [place] [Other] - 3-5 Days [facility] [Outside] - 3-5 Days PRIMARY CARE, [Primary Care Provider] - 3-5 Days
== END 2019-08-03 20:15 | disposition home or self-care (01) ==
LOC: ED 15:52
DX: R06.02 Shortness of breath (principal); R11.0 Nausea; M54.5 Low back pain; R05 Cough; F17.200 Nicotine dependence, unspecified, uncomplicated
CPT/HCPCS: 71046; 81001; 81025; 87086

== ENCOUNTER 2019-08-11 20:15 | Emergency (ER) | payer SELFPAY ==
--- NOTE | 2019-08-11 20:30 | Emergency Department Report ---
Blank Doc - Documentation Documentation: 39-year-old female that presents with unable to urinate and flank pain. This initial assessment/diagnostic orders/clinical plan/treatment(s) is/are subject to change based on patient's health status, clinical progression and re- assessment by fellow clinical providers in the ED. Further treatment and workup at subsequent clinical providers discretion. Patient/guardians urged not to elope from the ED as their condition may be serious if not clinically assessed and managed. Initial orders include: 1- Patient sent to [facility] for further evaluation and treatment 2- UA
[2019-08-11 21:15] LABS: Bacteria,Urine 1+ /HPF (Negative); Bilirubin,Urine NEG (Negative); Blood,Urine SM (Negative); Color,Urine Straw (Yellow); HCG Qualitative,Urine Negative (Negative); Protein,Urine <15 mg/dL mg/dL (Negative); Urobilinogen,Urine < 2.0 mg/dL (<2.0)
[2019-08-12] MEDS ORDERED: SODIUM CHLORIDE 0.9% 1000 ML 1,000 ML IV ONE ×2 (00:10→01:55)
--- NOTE | 2019-08-12 00:14 | Emergency Department Report ---
ED Medical Clearance HPI - General Chief complaint: Urogenital-Female Stated complaint: UNABLE TO URINATE Time Seen by Provider: 08/11/19 20:28 Source: patient Mode of arrival: Ambulatory - History of Present Illness Initial comments: Patient is a 39-year-old female that presents emergency room for complaints of difficulty urinating and desires detox. Patient states her last drink was 2 hours prior to arrival. Patient brought in by EMS. Patient had a IV placed by EMS. Patient states she has been ambulatory here. Patient states she is having epigastric pain. Patient states that when she drinks for many consecutive days she gets gastritis. Patient has been drinking for many years. Patient states that her difficulty urinating and dysuria started 2 days ago. Patient denies fever and chills. Patient denies cough. Patient denies shortness of breath. Patient denies chest pain. Patient denies recent travel. Patient denies recent international travel. Patient denies exposure to the novel coronavirus. Patient denies sick contacts. Patient denies fever and chills. Patient denies cough. Patient denies diarrhea. Patient denies coming in contact with anybody with symptoms of the novel coronavirus. Complaint: medical clearance request Alledged Intoxication: Yes Compliant with Home Medications: No Traumatic Symptoms: denies traumatic injury Associated Symptoms: other Home medications: Previous Rx's Medication Instructions Recorded Last Taken Type Multivitamin with Folic Acid [[facility] 400 mcg PO QDAY #30 tablet 06/16/19 Unknown Rx One Daily Essential Tablet] chlordiazePOXIDE [Librium] 25 mg PO Q6H PRN #25 capsule 06/16/19 Unknown Rx chlordiazePOXIDE [Librium] 25 mg PO Q6H #30 capsule 08/03/19 Unknown Rx Esomeprazole Magnesium [NexIUM] 40 mg PO QDAY #30 capsule. 08/12/19 Unknown Rx Allergies/Adverse reactions: Allergies Allergy/AdvReac Type Severity Reaction Status Date / Time bee venom protein (honey bee) Allergy Unknown Verified 06/15/19 19:30 tramadol Allergy Hives Verified 09/26/14 17:25 ED Review of Systems ROS: Stated complaint: UNABLE TO URINATE Other details as noted in HPI Constitutional: denies: chills, fever Eyes: denies: eye pain, eye discharge, vision change ENT: denies: ear pain, throat pain Respiratory: denies: cough, shortness of breath, wheezing Cardiovascular: denies: chest pain, palpitations Endocrine: no symptoms reported Gastrointestinal: abdominal pain. denies: nausea, diarrhea Genitourinary: dysuria. denies: urgency, discharge Musculoskeletal: denies: back pain, joint swelling, arthralgia Skin: denies: rash, lesions Neurological: denies: headache, weakness, paresthesias Psychiatric: denies: anxiety, depression Hematological/Lymphatic: denies: easy bleeding, easy bruising ED Past Medical Hx - Past Medical History Previous Medical History?: Yes Hx Psychiatric Treatment: No Additional medical history: history of SVT - Surgical History Past Surgical History?: Yes Additional Surgical History: elbow surgeries? BILATERAL CARPAL TUNNEL SURGERY 2 017 - Family History Family history: no significant - Social History Smoking Status: Current Every Day Smoker Substance Use Type: Alcohol - Medications Home Medications: Home Medications Medication Instructions Recorded Confirmed Last Taken Type Multivitamin with Folic Acid [[facility]vs 400 mcg PO QDAY #30 tablet 06/16/19 Unknown Rx One Daily Essential Tablet] chlordiazePOXIDE [Librium] 25 mg PO Q6H PRN #25 capsule 06/16/19 Unknown Rx chlordiazePOXIDE [Librium] 25 mg PO Q6H #30 capsule 08/03/19 Unknown Rx Esomeprazole Magnesium [NexIUM] 40 mg PO QDAY #30 capsule. 08/12/19 Unknown Rx ED Physical Exam - General Limitations: No Limitations General appearance: alert, in no apparent distress - Head Head exam: Present: atraumatic, normocephalic - Eye Eye exam: Present: normal appearance, PERRL Pupils: Present: normal accommodation - ENT ENT exam: Present: mucous membranes moist - Neck Neck exam: Present: normal inspection - Respiratory Respiratory exam: Present: normal lung sounds bilaterally. Absent: respiratory distress, wheezes, rales - Cardiovascular Cardiovascular Exam: Present: regular rate, normal rhythm. Absent: systolic murmur, diastolic murmur, rubs, gallop - GI/Abdominal GI/Abdominal exam: Present: soft, tenderness (Epigastric tenderness), normal bowel sounds - Extremities Exam Extremities exam: Present: normal inspection - Back Exam Back exam: Present: normal inspection - Neurological Exam Neurological exam: Present: alert, oriented X3 - Psychiatric Psychiatric exam: Present: normal affect, normal mood - Skin Skin exam: Present: warm, dry, intact, normal color. Absent: rash ED Course Vital Signs 08/11/19 08/12/19 08/12/19 20:22 00:16 03:27 Temperature 98.3 F 97.4 F L Pulse Rate 97 H 89 80 Respiratory 18 17 16 Rate Blood Pressure 115/78 Blood Pressure 98/58 101/59 [Left] O2 Sat by Pulse 95 97 97 Oximetry 08/12/19 08/12/19 07:00 07:30 Temperature Pulse Rate Respiratory 16 16 Rate Blood Pressure Blood Pressure 109/73 [Left] O2 Sat by Pulse 97 Oximetry - Reevaluation(s) Reevaluation #1: Patient is stable for discharge except for her alcohol level. Patient's alcohol level is elevated and above legal limit. Patient will remain in the ER as an ER hold until the patient alcohol is below the legal limit and the patient is clinically and legally sober. 2013 signed. I discussed all results and clinical findings with patient. I discussed plan of care with patient. Patient agrees with plan of care. Patient is stable for discharge. Patient will be discharged home and patient to go directly to rehab. Patient to utilize the resource sheet given to her at discharge. Patient given discharge instructions. Patient voiced understanding of discharge instructions. 08/12/19 01:58 08/12/19 02:02 ED Medical Decision Making - Lab Data Result diagrams: 08/12/19 00:34 08/12/19 00:34 - Medical Decision Making Patient is a 39-year-old female that presents emergency room for desire detox, acute intoxication and dysuria. Patient's UA was negative. Patient's labs are unremarkable except for elevated blood alcohol level. Patient placed on 2012 and will remain in the ER as an ER hold until she is clinically and clinically sober. Patient given fluids and a banana bag. Patient will see our mental health senior category manager for assistance in placement into detox./ Patient also complained of abdominal pain in her abdominal pain is clinically consistent with acute gastritis secondary to alcoholism. Patient instructed to decrease her alcohol intake and to avoid NSAIDs and take Nexium daily. Patient given a prescription for Nexium. During all patient encounters, nurse arrived in the room - Differential Diagnosis Acute intoxication, desire detox, UTI, dysuria, abdominal pain, gastritis ED Disposition Clinical Impression: Desire for detoxification, Alcohol abuse Acute alcohol intoxication Qualifiers: Complication of substance-induced condition: uncomplicated Qualified Code(s): F10.920 - Alcohol use, unspecified with intoxication, uncomplicated Abdominal pain Qualifiers: Abdominal location: epigastric Qualified Code(s): R10.13 - Epigastric pain Gastritis Qualifiers: Gastritis type: alcoholic Chronicity: acute Gastritis bleeding: without bleeding Qualified Code(s): K29.20 - Alcoholic gastritis without bleeding Disposition: TO HOME OR SELFCARE Is pt being admited?: No Does the pt Need Aspirin: No Condition: Stable Instructions: Gastritis (ED), Alcohol Intoxication (ED), Abuse of Alcohol (ED), At-Risk Alcohol Use (ED), Alcohol Withdrawal (ED) Additional Instructions: Patient to be discharged from the ER and go directly to a rehabilitation center, on the resource list that was given to the patient. Patient to follow-up with primary care in 2 to 3 days. Patient to rest. Patient to increase water. Patient to take Tylenol as needed for pain. Patient to take meds as directed. Patient to return to the ER if condition worsens, changes or new symptoms arise. Prescriptions: Esomeprazole Magnesium [NexIUM] 40 mg PO QDAY #30 capsule. Referrals: PRIMARY CARE, [Primary Care Provider] - 3-5 Days Time of Disposition: 02:04
[2019-08-12 01:06] LABS: Amphetamine Screen,Urine PRESUMPTIVE NEGATIVE; Cannabinoid Screen,Urine PRESUMPTIVE NEGATIVE; Cocaine Screen,Urine PRESUMPTIVE NEGATIVE; Methadone Screen,Urine PRESUMPTIVE NEGATIVE; Opiate Screen,Urine PRESUMPTIVE NEGATIVE
[2019-08-12 01:12] LABS: Basophils % (Auto) 0.8 % (0.0-1.8); Eosinophils % (Auto) 0.5 % (0.0-4.3); Hemoglobin 9.1 gm/dl (10.1-14.3); Lymphocytes # (Auto) 1.8 K/mm3 (1.2-5.4); Lymphocytes % (Auto) 30.8 % (13.4-35.0); Mean Corpuscular HGB Conc 31 % (30-34); Mean Corpuscular Volume 78 fl (79-97); Monocytes # (Auto) 0.6 K/mm3 (0.0-0.8); Monocytes % (Auto) 9.9 % (0.0-7.3); Red Blood Count 3.83 M/mm3 (3.65-5.03)
[2019-08-12] MEDS ORDERED: ONDANSETRON 4 MG/2 ML INJ IV ONE (01:17)
[2019-08-12 01:21] LABS: Benzodiazepines Screen,Urine PRESUMPTIVE POSITIVE
[2019-08-12 01:27] LABS: BUN/Creatinine Ratio 16; Blood Urea Nitrogen 8 mg/dL (7-17); Calcium 8.7 mg/dL (8.4-10.2); Hemolysis Index 15
[2019-08-12 01:38] LABS: Platelet Count 180 K/mm3 (140-440); Red Cell Distribution Width 22.7 % (13.2-15.2)
[2019-08-12] MEDS ORDERED: THIAMINE 100 MG, FOLIC ACID 1 MG, MULTIPLE VITAMIN INJ, ADULT 10 ML in SODIUM CHLORIDE ... IV ONE (01:55)
[2019-08-12 08:47] VITALS: BP 109/73
== END 2019-08-12 07:45 | disposition home or self-care (01) ==
LOC: ED 20:15
DX: K29.20 Alcoholic gastritis without bleeding (principal); F10.129 Alcohol abuse with intoxication, unspecified; F17.200 Nicotine dependence, unspecified, uncomplicated; Z88.6 Allergy status to analgesic agent; Z91.030 Bee allergy status; Z79.899 Other long term (current) drug therapy; Y90.9 Presence of alcohol in blood, level not specified
CPT/HCPCS: 36415; 80048; 80307; 81001; 81025; 85025; 87086; 96361; 96365; 96366; 96375; 99283; J2405; J3411; J7030; 80320; G0480

== ENCOUNTER 2019-08-19 19:41 | Emergency (ER) | payer SELFPAY ==
[2019-08-19 20:44] LABS: Bilirubin,Urine NEG (Negative); Blood,Urine MOD (Negative); Color,Urine Colorless (Yellow); Protein,Urine <15 mg/dL mg/dL (Negative); Urobilinogen,Urine < 2.0 mg/dL (<2.0)
[2019-08-19] MEDS ORDERED: ONDANSETRON 4 MG/2 ML INJ IV ONE ×2 (20:44→22:41)
[2019-08-19] MEDS ORDERED: KETOROLAC 30 MG/1 ML INJ IV ONE (20:44)
[2019-08-19 20:45] LABS: HCG Qualitative,Urine Negative (Negative)
[2019-08-19 21:13] LABS: Basophils % (Auto) 0.7 % (0.0-1.8); Eosinophils % (Auto) 0.7 % (0.0-4.3); Hematocrit 26.6 % (30.3-42.9); Hemoglobin 8.3 gm/dl (10.1-14.3); Lymphocytes # (Auto) 0.7 K/mm3 (1.2-5.4); Lymphocytes % (Auto) 16.9 % (13.4-35.0); Mean Corpuscular HGB Conc 31 % (30-34); Mean Corpuscular Volume 78 fl (79-97); Monocytes # (Auto) 0.4 K/mm3 (0.0-0.8); Monocytes % (Auto) 8.2 % (0.0-7.3); Platelet Count 250 K/mm3 (140-440); Red Blood Count 3.42 M/mm3 (3.65-5.03)
[2019-08-19 21:14] LABS: Red Cell Distribution Width 22.8 % (13.2-15.2)
[2019-08-19 21:32] LABS: Albumin 4.1 g/dL (3.9-5); BUN/Creatinine Ratio 10; Blood Urea Nitrogen 5 mg/dL (7-17); Calcium 8.5 mg/dL (8.4-10.2); Hemolysis Index 99
[2019-08-19 21:34] LABS: Alanine Aminotransferase 25 units/L (7-56)
[2019-08-19] MEDS ORDERED: HYDROcodone/ACETAMINOPHEN 5-325 MG TAB PO ONE (21:53)
[2019-08-19] MEDS ORDERED: HYDROcodone/ACETAMINOPHEN 5-325 MG TAB ONE (21:53)
[2019-08-19] MEDS ORDERED: MORPHINE 4 MG/1 ML INJ IV ONE (22:41)
--- NOTE | 2019-08-19 23:20 | Cat Scan Report ---
CT OF THE ABDOMEN AND PELVIS WITH INTRAVENOUS CONTRAST INDICATION / CLINICAL INFORMATION: Pelvic pain. TECHNIQUE: The patient received 100 cc Omnipaque [address] scans at this location are performed using CT dose reduction for ALARA by means of automated exposure control. COMPARISON: 01/07/19. FINDINGS: ABDOMEN: There is marked diffuse decreased density of the liver parenchyma compared to the spleen. Th e liver measures approximately 20 cm in length. The left lobe of the liver is enlarged. The gallbladder, bile ducts, pancreas, spleen, adrenal glands and bowel demonstrate no significant ab normality. There is a small simple cyst in the lower pole of the left kidney posteriorly. The right k idney is normal. No adenopathy is seen. There is mild bibasilar dependent atelectasis. PELVIS: The distal ureters and urinary bladder are normal. A trace amount of free fluid in the cul-de -sac likely physiologic. The uterus and adnexal regions are unremarkable. A normal appendix is presen t and there is no evidence of diverticulitis. I do not identify a hernia. No acute osseous abnormalit y is seen. IMPRESSION: 1. Hepatomegaly with marked diffuse fatty infiltration. 2. Trace free fluid in the cul-de-sac is likely physiologic. Signer Name: Nicolás Degroot MD Signed: 08/19/2019 11:16 PM Workstation Name: [id number]
[2019-08-19] MEDS ORDERED: LIDOCAINE-MPF (1%) 10 MG/1 ML VIAL 5 ML INFILTRATI ONE (23:22)
[2019-08-19] MEDS ORDERED: AZITHROMYCIN 250 MG TAB PO ONE (23:22)
--- NOTE | 2019-08-20 00:17 | Emergency Department Report ---
ED Female HPI - General Chief complaint: Abdominal Pain Stated complaint: STD Source: patient Mode of arrival: Ambulatory Limitations: No Limitations - History of Present Illness Initial comments: Patient is a A0 39-year-old -[place] female with no past medical his tory who presents to the ED with complaint of acute onset persistent severe pelvic pain, vaginal discharge, sore throat, nausea and vomiting for the last 2 weeks intermittently but worse in the last 2 days. Patient states that she is sexually active and was exposed to STD by her fianc who admitted that she has been having sexual intercourse with other females. Patient states that her symptoms got worse 2 days ago and that she has not been able to sleep because of severe pain in the pelvic area. Patient denies fever, chills, vaginal bleeding, diarrhea, abdominal pain, dyspareunia, change in vision, syncope, low back pain, headache, dizziness or cough. MD Complaint: vaginal discharge, pelvic pain -: Sudden, week(s) (2) Location: suprapubic Radiation: non-radiating Severity: severe Severity scale (0 -10): 8 Quality: cramping, sharp Consistency: constant Improves with: none Worsens with: none Are you Now?: No Last Menstrual Period: 08/09/19 EDC: 05/15/20 Associated Symptoms: denies other symptoms, vaginal discharge, abdominal pain (suprapubic), nausea/vomiting, loss of appetite. denies: vaginal bleeding, fever/chills, headaches, dysuria, hematuria, rash, seizure, shortness of breath, syncope, weakness, other - Related Data Sexually active: Yes : 4 Para: 4 A: 0 Previous Rx's Medication Instructions Recorded Last Taken Type Multivitamin with Folic Acid [[facility]vs 400 mcg PO QDAY #30 tablet 06/16/19 Unknown Rx One Daily Essential Tablet] chlordiazePOXIDE [Librium] 25 mg PO Q6H PRN #25 capsule 06/16/19 Unknown Rx chlordiazePOXIDE [Librium] 25 mg PO Q6H #30 capsule 08/03/19 Unknown Rx Esomeprazole Magnesium [NexIUM] 40 mg PO QDAY #30 capsule. 08/12/19 Unknown Rx Acetaminophen/Codeine [Tylenol 1 tab PO Q6H PRN #12 tab 08/20/19 Unknown Rx /Codeine # 3 tab] Doxycycline Hyclate 100 mg PO Q12H #20 tablet. 08/20/19 Unknown Rx Fluconazole [Diflucan TAB] 150 mg PO ONCE #1 tablet 08/20/19 Unknown Rx Ibuprofen [Motrin] 600 mg PO Q8H PRN #24 tablet 08/20/19 Unknown Rx Ondansetron [Zofran Odt] 4 mg PO Q6HR PRN #20 tab.rapdis 08/20/19 Unknown Rx metroNIDAZOLE [Flagyl] 500 mg PO Q12HR #14 tab 08/20/19 Unknown Rx Allergies Allergy/AdvReac Type Severity Reaction Status Date / Time bee venom protein (honey bee) Allergy Unknown Verified 06/15/19 19:30 tramadol Allergy Hives Verified 09/26/14 17:25 ED Review of Systems ROS: Stated complaint: STD Other details as noted in HPI Constitutional: denies: chills, fever Eyes: denies: eye pain, eye discharge, vision change ENT: throat pain. denies: ear pain Respiratory: denies: cough, shortness of breath, wheezing Cardiovascular: denies: chest pain, palpitations Endocrine: no symptoms reported Gastrointestinal: abdominal pain (suprapubic), nausea, vomiting. denies: diarrhea, hematochezia Genitourinary: urgency, discharge, dyspareunia. denies: dysuria Musculoskeletal: denies: back pain, joint swelling, arthralgia Skin: denies: rash, lesions Neurological: denies: headache, weakness, paresthesias Psychiatric: denies: anxiety, depression Hematological/Lymphatic: denies: easy bleeding, easy bruising ED Past Medical Hx - Past Medical History Previous Medical History?: No Hx Psychiatric Treatment: No Additional medical history: history of SVT - Surgical History Past Surgical History?: Yes Additional Surgical History: elbow surgeries? BILATERAL CARPAL TUNNEL SURGERY 2017 - Social History Smoking Status: Current Every Day Smoker Substance Use Type: Alcohol - Medications Home Medications: Home Medications Medication Instructions Recorded Confirmed Last Taken Type Multivitamin with Folic Acid [[facility]vs 400 mcg PO QDAY #30 tablet 06/16/19 Unknown Rx One Daily Essential Tablet] chlordiazePOXIDE [Librium] 25 mg PO Q6H PRN #25 capsule 06/16/19 Unknown Rx chlordiazePOXIDE [Librium] 25 mg PO Q6H #30 capsule 08/03/19 Unknown Rx Esomeprazole Magnesium [NexIUM] 40 mg PO QDAY #30 capsule. 08/12/19 Unknown Rx Acetaminophen/Codeine [Tylenol 1 tab PO Q6H PRN #12 tab 08/20/19 Unknown Rx /Codeine # 3 tab] Doxycycline Hyclate 100 mg PO Q12H #20 tablet. 08/20/19 Unknown Rx Fluconazole [Diflucan TAB] 150 mg PO ONCE #1 tablet 08/20/19 Unknown Rx Ibuprofen [Motrin] 600 mg PO Q8H PRN #24 tablet 08/20/19 Unknown Rx Ondansetron [Zofran Odt] 4 mg PO Q6HR PRN #20 tab.rapdis 08/20/19 Unknown Rx metroNIDAZOLE [Flagyl] 500 mg PO Q12HR #14 tab 08/20/19 Unknown Rx ED Physical Exam - General Limitations: No Limitations General appearance: alert, in no apparent distress - Head Head exam: Present: atraumatic, normocephalic, normal inspection - Eye Eye exam: Present: normal appearance, PERRL, EOMI Pupils: Present: normal accommodation - ENT ENT exam: Present: normal exam, normal orophraynx, mucous membranes moist, TM's normal bilaterally, normal external ear exam - Neck Neck exam: Present: normal inspection, full ROM - Respiratory Respiratory exam: Present: normal lung sounds bilaterally. Absent: respiratory distress, wheezes, rales, rhonchi, chest wall tenderness, accessory muscle use, decreased breath sounds - Cardiovascular Cardiovascular Exam: Present: normal rhythm, tachycardia, normal heart sounds. Absent: systolic murmur, diastolic murmur, rubs, gallop - GI/Abdominal GI/Abdominal exam: Present: soft, tenderness (Palpable suprapubic tenderness), normal bowel sounds. 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 Absent: tenderness, pedal edema, joint swelling - Back Exam Back exam: Present: normal inspection, full ROM. Absent: tenderness, CVA tenderness (R), CVA tenderness (L), muscle spasm, paraspinal tenderness, vertebral tenderness - Neurological Exam Neurological exam: Present: alert, oriented X3, CN II-XII intact, normal gait, reflexes normal - Psychiatric Psychiatric exam: Present: normal affect, normal mood - Skin Skin exam: Present: warm, dry, intact, normal color. Absent: rash ED Course Vital Signs 08/19/19 08/19/19 19:46 21:20 Temperature 98.0 F Pulse Rate 116 H 93 H Respiratory 16 17 Rate Blood Pressure 148/94 O2 Sat by Pulse 98 99 Oximetry ED Medical Decision Making - Lab Data Result diagrams: 08/19/19 20:40 08/19/19 20:40 - Radiology Data Radiology results: report reviewed, image reviewed Findings [facility] [address] [place] [address] Cat Scan Report Signed Patient: TEOFILO BAZAN MR#: [id number] : 1980 Acct:[id number] Age/Sex: 39 / F ADM Date: 08/19/19 Loc: ED Attending Dr: Ordering Physician: LISA SPRAGUE Date of Service: 08/19/19 Procedure(s): CT abdomen pelvis w con Accession Number(s): [id number] cc: LISA SPRAGUE CT OF THE ABDOMEN AND PELVIS WITH INTRAVENOUS CONTRAST INDICATION / CLINICAL INFORMATION: Pelvic pain. TECHNIQUE: The patient received 100 cc Omnipaque [address] scans at this location are performed using CT dose reduction for ALARA by means of automated exposure control. COMPARISON: 01/07/19. FINDINGS: ABDOMEN: There is marked diffuse decreased density of the liver parenchyma compared to the spleen. The liver measures approximately 20 cm in length. The left lobe of the liver is enlarged. The gallbladder, bile ducts, pancreas, spleen, adrenal glands and bowel demonstrate no significant abnormality. There is a small simple cyst in the lower pole of the left kidney posteriorly. The right kidney is normal. No adenopathy is seen. There is mild bibasilar dependent atelectasis. PELVIS: The distal ureters and urinary bladder are normal. A trace amount of free fluid in the cul-de-sac likely physiologic. The uterus and adnexal regions are unremarkable. A normal appendix is present and there is no evidence of diverticulitis. I do not identify a hernia. No acute osseous abnormality is seen. IMPRESSION: 1. Hepatomegaly with marked diffuse fatty infiltration. 2. Trace free fluid in the cul-de-sac is likely physiologic. Signer Name: Nicolás Degroot MD Signed: 08/19/2019 11:16 PM Workstation Name: [id number] Transcribed By: RT Dictated By: Nicolás Degroot MD Electronically Authenticated By: Nicolás Degroot MD Signed Date/Time: 08/19/192315 DD/ 09 TD/TT: - Medical Decision Making This is a G4, 39-year-old -[place] female with no past medical history except anxiety and depression who presented to the ED with persistent severe pelvic pain with vaginal discharge, nausea and vomiting and sore throat for the last 2 weeks worse in the last 2 days. Patient admitted that her significant other had admitted that he had been unfaithful to her when she started having the symptoms. Patient states that the pain has been worsening in the last 2 days and that despite taking Tylenol [id number] or ibuprofen the pain is still present. In the ED, patient is alert and oriented x3 and is not in distress but appears to be in pain, crying during the physical exam and tachycardic and afebrile in triage. Patient was treated for pain in the ED and also given antiemetics. Lab test results were reviewed and showed baseline chronic iron deficiency anemia, and elevated AST of 65. The wet prep showed significant Gardnerella vaginalis. The rest of the lab test results were nonactionable. The abdomen pelvis CT scan with contrast showed hepatomegaly with marked diffuse fatty infiltration, as well as trace free fluid in the cul-de-sac is likely physiologic. Patient was empirically treated for acute pelvic inflammatory disease based on the physical exam findings of cervical motion tenderness and adnexal tenderness. On reevaluation, patient's pain is well controlled with medications. Patient has not had any nausea or vomiting while in the ED. Patient was discharged home on medications and advised to follow-up with [facility] physician in 7 to 10 days for reevaluation. Patient was also advised to follow-up with the [facility] department for further STD testing including HIV test. Patient was advised to return to the ED immediately if symptoms get worse. - Differential Diagnosis PID; Appendicitis; UTI; Ovarian cyst; Diveriticulitis; Kidney stone Critical care attestation.: If time is entered above; I have spent that time in minutes in the direct care of this critically ill patient, excluding procedure time. ED Disposition Clinical Impression: Acute pelvic inflammatory disease (PID), Nausea and vomiting in adult, Bacterial vaginosis in , STD (sexually transmitted disease) Disposition: TO HOME OR SELFCARE Is pt being admited?: No Does the pt Need Aspirin: No Condition: Stable Instructions: Abdominal Pain (ED), Bacterial Vaginosis (ED), Pelvic Inflammatory Disease (ED), Acute Nausea and Vomiting (ED) Additional Instructions: Take medication with food, drink plenty of fluids and follow-up with your primary care physician or [facility] physician in 7 to 10 days for reevaluation. Return to the ED immediately if symptoms get worse. Consider following up with the [facility] for further STD testing including HIV. Advise your sexual partner to seek treatment also at the [facility]. Prescriptions: Fluconazole [Diflucan TAB] 150 mg PO ONCE #1 tablet Doxycycline Hyclate 100 mg PO Q12H #20 tablet. metroNIDAZOLE [Flagyl] 500 mg PO Q12HR #14 tab Ibuprofen [Motrin] 600 mg PO Q8H PRN #24 tablet PRN Reason: Pain Acetaminophen/Codeine [Tylenol /Codeine # 3 tab] 1 tab PO Q6H PRN #12 tab PRN Reason: Pain , Severe (7-10) Ondansetron [Zofran Odt] 4 mg PO Q6HR PRN #20 tab.rapdis PRN Reason: Nausea Referrals: [facility] [Outside] - 3-5 Days [facility] [Outside] - 3-5 Days Forms: STI Treatment and Prevention Time of Disposition: 00:26 Print Language: CROATIAN
[2019-08-20 00:55] VITALS: BP 141/94
== END 2019-08-20 00:35 | disposition home or self-care (01) ==
LOC: ED 19:41
DX: N76.0 Acute vaginitis (principal); B96.89 Other specified bacterial agents as the cause of diseases classified elsewhere; N73.8 Other specified female pelvic inflammatory diseases; A63.8 Other specified predominantly sexually transmitted diseases
CPT/HCPCS: 36415; 74177; 80053; 81001; 81025; 83690; 85025; 87210; 87591; 96374; 96375; 96376; 99285; J0696; J2270; J2405; Q9967; J1885

== ENCOUNTER 2019-09-24 17:24 | Emergency (ER) | payer SELFPAY ==
[2019-09-24] MEDS ORDERED: diazePAM 10 MG/2 ML SYRINGE IV ONE (18:14)
[2019-09-24] MEDS ORDERED: LORazepam 2 MG/ML VIAL IV PRN ×3 (18:14)
--- NOTE | 2019-09-24 18:16 | Emergency Department Report ---
ED General Adult HPI - General Chief complaint: Alcohol Stated complaint: POSS SEIZURE PUI?: No Time Seen by Provider: 09/24/19 18:03 Source: patient, RN notes reviewed, old records reviewed Mode of arrival: Ambulatory Limitations: No Limitations - History of Present Illness Initial comments: Patient is a 39-year-old female. I have evaluated her in the past. She has a history of alcohol dependence. She was seen in this hospital last month for abdominal pain, pelvic pain and urinary symptoms, and presumptively diagnosed wi pelvic inflammatory disease and treated with antibiotics. Of note, her gonorrhea and chlamydia swab were negative. She reports her last alcoholic beverage was 10 hours ago. She apparently had a "seizure" while she was sitting down on the couch with her significant other. Prior to this "seizure", she denied physical pain. At the moment, she complains of headache, back pain, myalgias, chronic cervical pain. She denies focal extremity weakness and or numbness. The headache is not described as sudden or thunderclap in nature. Headache is not described as maximal intensity at the onset. There is no trauma, there is no neck pain or neck stiffness. There is no vomiting, the patient endorses dysuria, which apparently is chronic, and she is also not homicidal or suicidal. The patient indicates that she would consider alcohol detox. She has participated in alcohol detox in the past, through [facility]. -: Sudden Consistency: now resolved Improves with: none Worsens with: none - Related Data Previous Rx's Medication Instructions Recorded Last Taken Type chlordiazePOXIDE [Librium] 25 mg PO Q6H PRN #25 capsule 06/16/19 Unknown Rx Esomeprazole Magnesium [NexIUM] 40 mg PO QDAY #30 capsule. 08/12/19 Unknown Rx Doxycycline Hyclate 100 mg PO Q12H #20 tablet. 08/20/19 Unknown Rx Fluconazole [Diflucan TAB] 150 mg PO ONCE #1 tablet 08/20/19 Unknown Rx Ibuprofen [Motrin] 600 mg PO Q8H PRN #24 tablet 08/20/19 Unknown Rx Ondansetron [Zofran Odt] 4 mg PO Q6HR PRN #20 tab.rapdis 08/20/19 Unknown Rx metroNIDAZOLE [Flagyl] 500 mg PO Q12HR #14 tab 08/20/19 Unknown Rx Calcium Carbonate [[id number]] 500 mg PO QDAY #30 tablet 09/24/19 Unknown Rx Magnesium Oxide 400 mg PO QDAY #30 tablet 09/24/19 Unknown Rx Multivitamin with Folic Acid [Cvs 400 mcg PO QDAY #30 tablet 09/24/19 Unknown Rx One Daily Essential Tablet] Potassium Chloride [K-Dur] 20 meq PO BID #20 tab 09/24/19 Unknown Rx chlordiazePOXIDE [Librium] 25 mg PO Q6H #30 capsule 09/24/19 Unknown Rx Allergies Allergy/AdvReac Type Severity Reaction Status Date / Time bee venom protein (honey bee) Allergy Unknown Verified 09/24/19 17:35 tramadol Allergy Hives Verified 09/24/19 17:35 ED Review of Systems ROS: Stated complaint: POSS SEIZURE Other details as noted in HPI Constitutional: malaise. denies: fever Eyes: denies: eye discharge ENT: denies: congestion Respiratory: denies: wheezing Cardiovascular: denies: edema Gastrointestinal: denies: vomiting Genitourinary: as per HPI, dysuria Musculoskeletal: back pain, arthralgia, myalgia Skin: as per HPI Neurological: weakness. denies: confusion Psychiatric: denies: homicidal thoughts, suicidal thoughts ED Past Medical Hx - Past Medical History Previous Medical History?: Yes Hx Psychiatric Treatment: Yes (ETOH abuse) Additional medical history: history of SVT - Surgical History Past Surgical History?: Yes Additional Surgical History: elbow surgeries? BILATERAL CARPAL TUNNEL SURGERY 2016 - Social History Smoking Status: Current Every Day Smoker Substance Use Type: Alcohol - Medications Home Medications: Home Medications Medication Instructions Recorded Confirmed Last Taken Type chlordiazePOXIDE [Librium] 25 mg PO Q6H PRN #25 capsule 06/16/19 Unknown Rx Esomeprazole Magnesium [NexIUM] 40 mg PO QDAY #30 capsule. 08/12/19 Unknown Rx Doxycycline Hyclate 100 mg PO Q12H #20 tablet. 08/20/19 Unknown Rx Fluconazole [Diflucan TAB] 150 mg PO ONCE #1 tablet 08/20/19 Unknown Rx Ibuprofen [Motrin] 600 mg PO Q8H PRN #24 tablet 08/20/19 Unknown Rx Ondansetron [Zofran Odt] 4 mg PO Q6HR PRN #20 tab.rapdis 08/20/19 Unknown Rx metroNIDAZOLE [Flagyl] 500 mg PO Q12HR #14 tab 08/20/19 Unknown Rx Calcium Carbonate [[id number]-Jad-015] 500 mg PO QDAY #30 tablet 09/24/19 Unknown Rx Magnesium Oxide 400 mg PO QDAY #30 tablet 09/24/19 Unknown Rx Multivitamin with Folic Acid [[facility]vs 400 mcg PO QDAY #30 tablet 09/24/19 Unknown Rx One Daily Essential Tablet] Potassium Chloride [K-Dur] 20 meq PO BID #20 tab 09/24/19 Unknown Rx chlordiazePOXIDE [Librium] 25 mg PO Q6H #30 capsule 09/24/19 Unknown Rx ED Physical Exam - General Limitations: No Limitations General appearance: alert, in no apparent distress, anxious - Head Head exam: Present: atraumatic, normocephalic - Eye Eye exam: Present: normal appearance, EOMI. Absent: nystagmus - ENT ENT exam: Present: normal exam, normal orophraynx, mucous membranes moist, normal external ear exam, other (There is no tongue laceration noted. No tongue fasciculations are noted.) - Neck Neck exam: Present: normal inspection, full ROM. Absent: tenderness, meningismus - Respiratory Respiratory exam: Present: normal lung sounds bilaterally. Absent: respiratory distress - Cardiovascular Cardiovascular Exam: Present: regular rate, normal rhythm, normal heart sounds. Absent: bradycardia, tachycardia, irregular rhythm, systolic murmur, diastolic murmur, rubs, gallop - GI/Abdominal GI/Abdominal exam: Present: soft, normal bowel sounds. Absent: distended, tenderness, guarding, rebound, rigid, pulsatile mass - Extremities Exam Extremities exam: Present: normal inspection, full ROM, other (2+ pulses noted in the bilateral upper and lower extremities. There is no palpable cord. negative Homans sign. Muscular compartments are soft. The pelvis is stable.). Absent: pedal edema, calf tenderness - Back Exam Back exam: Present: normal inspection, full ROM. Absent: tenderness, CVA tenderness (R), CVA tenderness (L), paraspinal tenderness, vertebral tenderness - Neurological Exam Neurological exam: Present: alert, oriented X3, other (No facial droop. Tongue midline. Extraocular movements intact bilaterally. Facial sensation intact to light touch in V1, V2, V3 distribution bilaterally. 5 and a 5 strength in 4 extremities. Sensation intact to light touch in 4 extremities.). Absent: motor sensory deficit - Psychiatric Psychiatric exam: Present: anxious. Absent: homicidal ideation, suicidal ideation - Skin Skin exam: Present: warm, dry, intact, normal color. Absent: rash ED Course Vital Signs 09/24/19 09/24/19 09/24/19 17:33 18:49 18:51 Temperature 97.9 F 97.8 F Pulse Rate 91 H 86 Respiratory 15 18 18 Rate Blood Pressure 140/89 Blood Pressure 106/56 [Right] O2 Sat by Pulse 100 97 97 Oximetry - Reevaluation(s) Reevaluation #1: 09/24/19 18:36 Differential diagnosis, including but not limited to: Alcohol withdrawal seizure, electrolyte derangement, alcohol dependence, intracranial lesion, chronic dysuria Assessment and plan: 39-year-old female with a primary complaint of seizure-like activity, now resolved, likely related to alcohol withdrawal seizure. The patient is not tremulous at this time, and she is not tachycardic and she does not have tongue fasciculations. She is clinically sober at this time with a GCS of 15, she is not homicidal or suicidal, and she does not meet criteria for 1013 hold. She had extensive work-up for abdominal pain and cervical discomfort last month, please reference the documentation from the physician assistant store manager. Her CT scan abdomen pelvis is also reviewed and appreciated. At the moment, there is no ab dominal tenderness, rebound or guarding. Patient is advised again to abstain from alcohol consumption. Patient advised that she should not drive or operate motor vehicles for the next 6 months. We will obtain appropriate screening laboratory studies, EKG, urinalysis, CT scan of the abdomen pelvis, give patient Valium empirically, give D5 half- normal, and we have requested a formal alcohol withdrawal scale from nursing team. At the moment, the patient does not meet criteria for inpatient hospitalization for alcohol dependence and withdrawal. I have again reiterated the need to minimize/taper down alcohol consumption, and if her initial diagnostics are unremarkable, discharge patient once again with multivitamins and Librium, and instructions to follow-up as an outpatient. Reevaluation #2: 09/24/19 19:36 Reassessed. No convulsive activity. Playing on her cellular phone. Found to have elevated blood alcohol level. Again, there is no history of trauma. Patient also found to have metabolic acidosis, likely secondary to convulsive activity, and alcohol. She will be given fluids and we will repeat her basic metabolic panel. Anemia is chronic. Mild hypo calcemia noted Reevaluation #3: 09/24/19 21:52 Resting comfortably for hours. No acute distress. No additional seizures noted. Continues to play on a cellular phone Reevaluation #4: 09/24/19 22:45 Repeat basic metabolic panel shows improvement in anion gap. Patient mildly hypokalemic at this time. She continues to be in no acute distress. We will observe her for a total of 6 hours At this moment, she is clinically sober and exhibits decision-making capacity. She will need to follow-up with an outpatient primary care doctor or neurologist. She will be discharged with potassium, magnesium, calcium supplementation, in addition to thiamine, and multivitamin. ED Medical Decision Making - Lab Data Result diagrams: 09/24/19 19:05 09/24/19 21:53 Vital Signs 09/24/19 17:33 Temperature 97.9 F Pulse Rate 91 H Respiratory 15 Rate Blood Pressure 140/89 O2 Sat by Pulse 100 Oximetry - EKG Data -: EKG Interpreted by Ok EKG shows normal: sinus rhythm Rate: normal - EKG Data 09/24/19 18:39 Sinus rhythm, 83 bpm, normal axis, QTC prolonged, high left ventricular voltage, the EKG is not a STEMI. The EKG is unchanged from prior EKG from May 2019. - Radiology Data Radiology results: report reviewed, image reviewed Print Report Referring Physician: KALIA MAYFIELD Patient Name: TEOFILO BAZAN Date of : 1980 Sex: Female Report Date: 2019-08-19 Report Status: Finalized Findings [facility] [address] [place] [address] Cat Scan Report Signed Patient: TEOFILO BAZAN MR#: [id number] : 1980 Acct:[id number] Age/Sex: 39 / F ADM Date: 08/19/19 Loc: ED Attending Dr: Ordering Physician: LISA SPRAGUE Date of Service: 08/19/19 Procedure(s): CT abdomen pelvis w con Accession Number(s): [id number] cc: LISA SPRAGUE CT OF THE ABDOMEN AND PELVIS WITH INTRAVENOUS CONTRAST INDICATION / CLINICAL INFORMATION: Pelvic pain. TECHNIQUE: The patient received 100 cc Omnipaque [address] scans at this location are performed using CT dose reduction for ALARA by means of automated exposure control. COMPARISON: 01/07/19. FINDINGS: ABDOMEN: There is marked diffuse decreased density of the liver parenchyma compared to the spleen. The liver measures approximately 20 cm in length. The left lobe of the liver is enlarged. The gallbladder, bile ducts, pancreas, spleen, adrenal glands and bowel demonstrate no significant abnormality. There is a small simple cyst in the lower pole of the left kidney posteriorly. The right kidney is norm al. No adenopathy is seen. There is mild bibasilar dependent atelectasis. PELVIS: The distal ureters and urinary bladder are normal. A trace amount of free fluid in the cul-de-sac likely physiologic. The uterus and adnexal regions are unremarkable. A normal appendix is present and there is no evidence of diverticulitis. I do not identify a hernia. No acute osseous abnormality is seen. IMPRESSION: 1. Hepatomegaly with marked diffuse fatty infiltration. 2. Trace free fluid in the cul-de-sac is likely physiologic. Signer Name: Nicolás Degroot MD Signed: 08/19/2019 11:16 PM Workstation Name: [id number] Transcribed By: RT Dictated By: Nicolás Degroot MD Electronically Authenticated By: Nicolás Degroot MD Signed Date/Time: 08/19/196 DD/ [address] scan of the brain to my interpretation appears to be negative for acute finding Critical care attestation.: If time is entered above; I have spent that time in minutes in the direct care of this critically ill patient, excluding procedure time. ED Disposition Clinical Impression: History of convulsions, Hypomagnesemia, Hypokalemia Alcohol intoxication Qualifiers: Complication of substance-induced condition: with unspecified complication Qualified Code(s): F10.929 - Alcohol use, unspecified with intoxication, unspecified Disposition: DC-01 TO HOME OR SELFCARE Is pt being admited?: No Does the pt Need Aspirin: No Condition: Stable Additional Instructions: Do not drive or operate motor vehicles for the next 6 months, or until cleared to do so by her primary care doctor or neurologist. Take the Librium medication as needed for sensation of shaking, and alcohol withdrawal. Take the multivitamins as directed. Follow-up with a primary care doctor or neurologist within the next 5 to 7 days. Recommend that patient taper off and discontinue long-term alcohol consumption. Long-term consumption of alcohol may cause ludwig ction, disability, paralysis, loss of quality of life, and . Return to the emergency room right away with recurrent seizure, change in mental status, confusion, projectile vomiting, inability to tolerate liquid feeds, extremity weakness and or numbness, homicidality, suicidality, change in mental status, or any new, worsened or different symptoms which were not present on the initial emergency room evaluation. Please make certain to follow-up with the primary care doctor for repeat checkup for potassium, calcium, magnesium within the next 7 days. Referrals: NARINDER MAURICE MD [Staff Physician] - 3-5 Days KAREN RASMUSSEN MD [Referring] - 3-5 Days MICHAEL GALEANA MD [Staff Physician] - 3-5 Days
[2019-09-24 18:41] LABS: BUN/Creatinine Ratio 13; Blood Urea Nitrogen 8 mg/dL (7-17); Calcium 7.9 mg/dL (8.4-10.2); Hemolysis Index 28
[2019-09-24] MEDS ORDERED: D5W/0.45% NACL 1,000 ML IV SCH (19:00)
[2019-09-24 19:03] VITALS: BP 106/56
[2019-09-24 19:08] LABS: Bacteria,Urine 1+ /HPF (Negative); Bilirubin,Urine NEG (Negative); Blood,Urine SM (Negative); Color,Urine Straw (Yellow); Mucus,Urine FEW /HPF; Protein,Urine <15 mg/dL mg/dL (Negative); Urobilinogen,Urine < 2.0 mg/dL (<2.0)
[2019-09-24 19:19] LABS: Hematocrit 28.9 % (30.3-42.9); Hemoglobin 9.2 gm/dl (10.1-14.3)
[2019-09-24 19:34] LABS: INR 1.03 (0.87-1.13)
[2019-09-24] MEDS ORDERED: SODIUM CHLORIDE 0.9% 1000 ML 2,000 ML IV ONE (19:35)
[2019-09-24] MEDS ORDERED: CALCIUM GLUCONATE 2,000 MG in SODIUM CHLORIDE 0.9% 100 ML IV ONE (19:36)
[2019-09-24] MEDS ORDERED: MAGNESIUM OXIDE 400 MG TAB PO STA (21:50)
[2019-09-24] MEDS ORDERED: MAGNESIUM SULFATE 2 GM/50 ML BAG IV ONE (21:51)
--- NOTE | 2019-09-24 22:13 | Cat Scan Report ---
CT HEAD WITHOUT CONTRAST INDICATION / CLINICAL INFORMATION: Seizure. TECHNIQUE: All CT scans at this location are performed using CT dose reduction for ALARA by means of automated e xposure control. COMPARISON: Head CT January 07, 2019 FINDINGS: HEMORRHAGE: No evidence of intracranial hemorrhage or extra-axial fluid collection. EXTRA-AXIAL SPACES: Cortical sulci, sylvian fissures and basilar cisterns have an unremarkable appear ance. VENTRICULAR SYSTEM: The ventricular system is of normal size and configuration. CEREBRAL PARENCHYMA: No areas of abnormal brain parenchymal attenuation are identified. There is no i ndication of recent infarction. MIDLINE SHIFT OR HERNIATION: There is no mass effect. CEREBELLUM / BRAINSTEM: Brainstem and cerebellum have an unremarkable appearance. INTRACRANIAL VESSELS:No abnormalities are identified on this noncontrast head CT. ORBITS: visualized portions of the orbits have an unremarkable appearance. SOFT TISSUES of HEAD: No significant abnormality. CALVARIUM: Evaluation of bone windows reveals no abnormalities. PARANASAL SINUSES / MASTOID AIR CELLS: Paranasal sinuses are free from inflammatory mucosal disease. Mastoid air cells are normally pneumatized. ADDITIONAL FINDINGS: None. IMPRESSION: 1. No intracranial abnormality. No significant interval change. Signer Name: Lukas Wood MD Signed: 09/24/2019 10:09 PM Workstation Name: [id number]
[2019-09-24 22:35] LABS: BUN/Creatinine Ratio 15; Blood Urea Nitrogen 6 mg/dL (7-17); Calcium 7.9 mg/dL (8.4-10.2); Hemolysis Index 26
[2019-09-24] MEDS ORDERED: POTASSIUM CHLORIDE ER 20 MEQ TAB PO ONE (22:46)
== END 2019-09-25 01:35 | disposition home or self-care (01) ==
LOC: ED 17:24
DX: E87.6 Hypokalemia (principal); E83.42 Hypomagnesemia; F10.929 Alcohol use, unspecified with intoxication, unspecified; F17.200 Nicotine dependence, unspecified, uncomplicated; Z79.899 Other long term (current) drug therapy; Z88.6 Allergy status to analgesic agent; Z91.030 Bee allergy status
CPT/HCPCS: 36415; 70450; 80048; 81001; 82550; 83735; 84702; 85014; 85018; 85049; 85610; 96365; 96367; 96375; 99285; J0610; J2060; J3360; J3475; J7030; 80320; G0480

== ENCOUNTER 2019-10-14 21:01 | Emergency (ER) | payer SELFPAY ==
[2019-10-14] MEDS ORDERED: SODIUM CHLORIDE 0.9% 1000 ML 1,000 ML IV ONE (23:47)
[2019-10-14] MEDS ORDERED: ONDANSETRON 4 MG/2 ML INJ IV ONE (23:47)
[2019-10-14] MEDS ORDERED: HYDROcodone/ACETAMINOPHEN 5-325 MG TAB PO ONE (23:59)
--- NOTE | 2019-10-15 00:04 | Emergency Department Report ---
ED Dizziness HPI - General Chief Complaint: Dizziness Stated Complaint: HYPOTENSION Time Seen by Provider: 10/14/19 23:44 Source: patient Mode of arrival: Ambulatory Limitations: No Limitations - History of Present Illness Initial Comments: Ms. Escobar is a 39-year-old -[place] female who presents for abdominal pain for 2 days she is been treated in the ED 3 times this month for multiple complaints, now for abdominal pain states intermittent dizziness today however. Diagnosed with fatty liver disease 12 days ago treated with Nexium p.o. however patient has stopped started medications. She denies nausea vomiting today there is no back pain no shortness of breath. States dizziness is resolved however right upper quadrant abdominal pain remains. CT scan dated 3 days ago noted fatty liver disease no other findings. There is no fever or chills. There is no hypotension noted on vital signs today. Symptoms are exacerbated by nothing symptoms are relieved by nothing. MD Complaint: dizziness Onset/Timin -: week(s) Timing: awoke with symptoms History of Same: No History of Trauma: No Severity: mild Improves With: nothing Worsens With: nothing - Related Data Previous Rx's Medication Instructions Recorded Last Taken Type chlordiazePOXIDE [Librium] 25 mg PO Q6H PRN #25 capsule 06/16/19 Unknown Rx Esomeprazole Magnesium [NexIUM] 40 mg PO QDAY #30 capsule. 08/12/19 Unknown Rx Doxycycline Hyclate 100 mg PO Q12H #20 tablet. 08/20/19 Unknown Rx Fluconazole (Nf) [Diflucan TAB] 150 mg PO ONCE #1 tablet 08/20/19 Unknown Rx Ibuprofen [Motrin] 600 mg PO Q8H PRN #24 tablet 08/20/19 Unknown Rx Ondansetron [Zofran Odt] 4 mg PO Q6HR PRN #20 tab.rapdis 08/20/19 Unknown Rx metroNIDAZOLE [Flagyl] 500 mg PO Q12HR #14 tab 08/20/19 Unknown Rx Calcium Carbonate [[id number]] 500 mg PO QDAY #30 tablet 09/24/19 Unknown Rx Multivitamin with Folic Acid [Cvs 400 mcg PO QDAY #30 tablet 09/24/19 Unknown Rx One Daily Essential Tablet] Potassium Chloride [K-Dur] 20 meq PO BID #20 tab 09/24/19 Unknown Rx chlordiazePOXIDE [Librium] 25 mg PO Q6H #30 capsule 09/24/19 Unknown Rx Loperamide HCl [Imodium A-D] 2 mg PO Q2H PRN #20 capsule 09/29/19 Unknown Rx Magnesium Chloride [Slow-Mag] 2 tab PO DAILY #60 tablet. 09/29/19 Unknown Rx Ondansetron [Zofran Odt] 4 mg PO Q8HR PRN #20 tab.rapdis 09/29/19 Unknown Rx Compress.stocking,Knee,Reg,Med 1 each MC DAILY #1 each 10/10/19 Unknown Rx [Jobst Anti-Embolism Stocking] Acetaminophen [Tylenol] 1,000 mg PO BID PRN #100 capsule 10/15/19 Unknown Rx Famotidine [Pepcid] 20 mg PO BID #60 tablet 10/15/19 Unknown Rx Allergies Allergy/AdvReac Type Severity Reaction Status Date / Time bee venom protein (honey bee) Allergy Unknown Verified 09/24/19 17:35 metoprolol Allergy Hives Verified 09/28/19 22:06 tramadol Allergy Hives Verified 09/24/19 17:35 ED Review of Systems ROS: Stated complaint: HYPOTENSION Other details as noted in HPI Constitutional: denies: chills, fever Eyes: denies: eye pain, eye discharge, vision change ENT: denies: ear pain, throat pain Respiratory: denies: cough, shortness of breath, wheezing Cardiovascular: denies: chest pain, palpitations Endocrine: no symptoms reported Gastrointestinal: abdominal pain. denies: nausea, vomiting, diarrhea, constipation, melena Genitourinary: denies: urgency, dysuria, frequency, hematuria, discharge Musculoskeletal: denies: back pain, joint swelling, arthralgia Skin: denies: rash, lesions Neurological: denies: headache, weakness, paresthesias Psychiatric: denies: anxiety, depression Hematological/Lymphatic: denies: easy bleeding, easy bruising ED Past Medical Hx - Past Medical History Hx Seizures: Yes (first on 09/25/2019) Hx Psychiatric Treatment: Yes (ETOH abuse) Additional medical history: history of SVT - Surgical History Additional Surgical History: elbow surgeries? BILATERAL CARPAL TUNNEL SURGERY 2017 - Social History Smoking Status: Current Every Day Smoker - Medications Home Medications: Home Medications Medication Instructions Recorded Confirmed Last Taken Type chlordiazePOXIDE [Librium] 25 mg PO Q6H PRN #25 capsule 06/16/19 Unknown Rx Esomeprazole Magnesium [NexIUM] 40 mg PO QDAY #30 capsule. 08/12/19 Unknown Rx Doxycycline Hyclate 100 mg PO Q12H #20 tablet. 08/20/19 Unknown Rx Fluconazole (Nf) [Diflucan TAB] 150 mg PO ONCE #1 tablet 08/20/19 Unknown Rx Ibuprofen [Motrin] 600 mg PO Q8H PRN #24 tablet 08/20/19 Unknown Rx Ondansetron [Zofran Odt] 4 mg PO Q6HR PRN #20 tab.rapdis 08/20/19 Unknown Rx metroNIDAZOLE [Flagyl] 500 mg PO Q12HR #14 tab 08/20/19 Unknown Rx Calcium Carbonate [[id number]] 500 mg PO QDAY #30 tablet 09/24/19 Unknown Rx Multivitamin with Folic Acid [[facility]vs 400 mcg PO QDAY #30 tablet 09/24/19 Unknown Rx One Daily Essential Tablet] Potassium Chloride [K-Dur] 20 meq PO BID #20 tab 09/24/19 Unknown Rx chlordiazePOXIDE [Librium] 25 mg PO Q6H #30 capsule 09/24/19 Unknown Rx Loperamide HCl [Imodium A-D] 2 mg PO Q2H PRN #20 capsule 09/29/19 Unknown Rx Magnesium Chloride [Slow-Mag] 2 tab PO DAILY #60 tablet. 09/29/19 Unknown Rx Ondansetron [Zofran Odt] 4 mg PO Q8HR PRN #20 tab.rapdis 09/29/19 Unknown Rx Compress.stocking,Knee,Reg,Med 1 each MC DAILY #1 each 10/10/19 Unknown Rx [Jobst Anti-Embolism Stocking] Acetaminophen [Tylenol] 1,000 mg PO BID PRN #100 capsule 10/15/19 Unknown Rx Famotidine [Pepcid] 20 mg PO BID #60 tablet 10/15/19 Unknown Rx ED Physical Exam - General Limitations: No Limitations General appearance: alert, in no apparent distress - Head Head exam: Present: atraumatic, normocephalic - Eye Eye exam: Present: normal appearance, PERRL, EOMI Pupils: Present: normal accommodation - ENT ENT exam: Present: normal orophraynx, mucous membranes moist, TM's normal bilaterally, normal external ear exam - Neck Neck exam: Present: normal inspection, full ROM. Absent: tenderness - Respiratory Respiratory exam: Present: normal lung sounds bilaterally. Absent: respiratory distress, wheezes, stridor, chest wall tenderness - Cardiovascular Cardiovascular Exam: Present: regular rate, normal rhythm, normal heart sounds. Absent: systolic murmur, diastolic murmur, rubs, gallop - GI/Abdominal GI/Abdominal exam: Present: soft, normal bowel sounds. Absent: distended, tenderness, guarding, rebound, rigid, bruit, hernia - Rectal Rectal exam: Present: deferred - Extremities Exam Extremities exam: Present: normal inspection, full ROM, normal capillary refill - Back Exam Back exam: Present: normal inspection, full ROM. Absent: tenderness, CVA tenderness (R), CVA tenderness (L), rash noted - Neurological Exam Neurological exam: Present: alert, oriented X3 - Psychiatric Psychiatric exam: Present: normal affect, normal mood - Skin Skin exam: Present: warm, dry, intact, normal color. Absent: rash ED Course Vital Signs 10/14/19 10/15/19 21:25 01:39 Temperature 98.4 F 98.8 F Pulse Rate 117 H 80 Respiratory 20 16 Rate Blood Pressure 164/101 Blood Pressure 164/99 [Left] O2 Sat by Pulse 99 99 Oximetry ED Medical Decision Making - Lab Data Result diagrams: 10/14/19 23:56 10/15/19 00:58 - Radiology Data Radiology results: report reviewed, image reviewed Findings Reporting MD: Rayne Tillman Dictation Time: October 15, 2019 02:23 Tank Cooper: Not available Fur Plucker Date: ULTRASOUND ABDOMEN, LIMITED (RIGHT UPPER QUADRANT) INDICATION: Right upper quadrant pain. COMPARISON: CT of the abdomen and pelvis, 09/29/2019 FINDINGS: Pancreas: Pancreas is not well visualized. Liver: The liver is en larged and appears diffusely echogenic. Gallbladder: There is a small amount sludge within the gallbladder. There is no wall thickening or pericholecystic fluid. Bile ducts: Common Bile Duct is normal in caliber, measuring less than 2 mm. Free fluid: None. Additional Findings: None. IMPRESSION: 1. Small amount of gallbladder sludge. No sonographic evidence of cholecystitis. 2. Diffuse hepatic steatosis. Signer Name: Rayne Tillman MD Signed: 10/15/2019 2:23 AM Workstation Name: [id number] - Medical Decision Making Gallbladder ultrasound shows small amount of sludge in gall bladder, some gall bladder no wall thickening gallbladder there is no fever chills no nausea vomiting at this time, plan dc to home with rounds on set Critical care attestation.: If time is entered above; I have spent that time in minutes in the direct care of this critically ill patient, excluding procedure time. ED Disposition Clinical Impression: Fatty liver Abdominal pain Qualifiers: Abdominal location: right upper quadrant Qualified Code(s): R10.11 - Right upper quadrant pain Disposition: DC-01 TO HOME OR SELFCARE Is pt being admited?: No Does the pt Need Aspirin: No Condition: Stable Instructions: Non-Alcoholic Fatty Liver Disease (ED) Prescriptions: Famotidine [Pepcid] 20 mg PO BID #60 tablet Acetaminophen [Tylenol] 1,000 mg PO BID PRN #100 capsule PRN Reason: Pain , Severe (7-10) Referrals: [facility] [Provider Group] - 3-5 Days Forms: Work/School Release Form(ED)
[2019-10-15 00:21] LABS: Basophils % (Auto) 0.9 % (0.0-1.8); Eosinophils % (Auto) 1.6 % (0.0-4.3); Hematocrit 28.2 % (30.3-42.9); Hemoglobin 9.1 gm/dl (10.1-14.3); Lymphocytes # (Auto) 1.4 K/mm3 (1.2-5.4); Lymphocytes % (Auto) 48.6 % (13.4-35.0); Mean Corpuscular HGB Conc 32 % (30-34); Mean Corpuscular Volume 82 fl (79-97); Monocytes # (Auto) 0.2 K/mm3 (0.0-0.8); Monocytes % (Auto) 5.4 % (0.0-7.3); Platelet Count 192 K/mm3 (140-440); Red Blood Count 3.45 M/mm3 (3.65-5.03)
[2019-10-15 00:45] LABS: Red Cell Distribution Width 22.2 % (13.2-15.2)
[2019-10-15 00:51] LABS: Alanine Aminotransferase TNR units/L (7-56)
[2019-10-15 00:56] LABS: Blood Urea Nitrogen TNR mg/dL (7-17)
[2019-10-15 00:57] LABS: Albumin TNR g/dL (3.9-5); BUN/Creatinine Ratio TNR; Calcium TNR mg/dL (8.4-10.2); Hemolysis Index TNR
[2019-10-15 01:26] LABS: Alanine Aminotransferase 89 units/L (7-56); BUN/Creatinine Ratio 6; Blood Urea Nitrogen 3 mg/dL (7-17); Calcium 8.1 mg/dL (8.4-10.2); Hemolysis Index 20
[2019-10-15 01:39] VITALS: BP 164/99
--- NOTE | 2019-10-15 03:27 | Ultrasound Report ---
ULTRASOUND ABDOMEN, LIMITED (RIGHT UPPER QUADRANT) INDICATION: Right upper quadrant pain. COMPARISON: CT of the abdomen and pelvis, 09/29/2019 FINDINGS: Pancreas: Pancreas is not well visualized. Liver: The liver is enlarged and appears diffusely echogenic. Gallbladder: There is a small amount sludge within the gallbladder. There is no wall thickening or pe richolecystic fluid. Bile ducts: Common Bile Duct is normal in caliber, measuring less than 2 mm. Free fluid: None. Additional Findings: None. IMPRESSION: 1. Small amount of gallbladder sludge. No sonographic evidence of cholecystitis. 2. Diffuse hepatic steatosis. Signer Name: Rayne Tillman MD Signed: 10/15/2019 3:23 AM Workstation Name: [id number]
== END 2019-10-15 04:21 | disposition home or self-care (01) ==
LOC: ED 21:01
DX: K76.0 Fatty (change of) liver, not elsewhere classified (principal); R10.9 Unspecified abdominal pain; R42 Dizziness and giddiness; R56.9 Unspecified convulsions; F17.200 Nicotine dependence, unspecified, uncomplicated; Z98.890 Other specified postprocedural states; Z79.1 Long term (current) use of non-steroidal anti-inflammatories (NSAID); Z79.899 Other long term (current) drug therapy; Z91.030 Bee allergy status; Z88.8 Allergy status to other drugs, medicaments and biological substances
CPT/HCPCS: 36415; 76705; 80053; 83690; 85025; 96361; 96374; 99284; J2405; J7030

== ENCOUNTER 2019-12-14 13:07 | Emergency (ER) | payer SELFPAY ==
[2019-12-14 13:48] LABS: Hematocrit 24.8 % (30.3-42.9); Hemoglobin 7.8 gm/dl (10.1-14.3); Mean Corpuscular HGB Conc 31 % (30-34); Mean Corpuscular Volume 84 fl (79-97); Platelet Count 168 K/mm3 (140-440); Red Blood Count 2.96 M/mm3 (3.65-5.03)
[2019-12-14 13:49] LABS: Red Cell Distribution Width 23.1 % (13.2-15.2)
[2019-12-14 13:55] LABS: Eosinophils # (Auto) 0.1 K/mm3 (0.0-0.4); Eosinophils % (Auto) 1.4 % (0.0-4.3); Monocytes # (Auto) 0.4 K/mm3 (0.0-0.8); Monocytes % (Auto) 9.1 % (0.0-7.3)
[2019-12-14 13:58] LABS: Basophils % (Auto) 0.5 % (0.0-1.8); Lymphocytes # (Auto) 1.5 K/mm3 (1.2-5.4); Lymphocytes % (Auto) 31.7 % (13.4-35.0)
[2019-12-14 14:04] LABS: Blood Urea Nitrogen 3 mg/dL (7-17); Calcium 8.4 mg/dL (8.4-10.2); Hemolysis Index 13
[2019-12-14 14:08] LABS: Albumin 3.6 g/dL (3.9-5); BUN/Creatinine Ratio 8; Bilirubin,Direct 0.4 mg/dL (0-0.2)
[2019-12-14] MEDS ORDERED: SODIUM CHLORIDE 0.9% 1000 ML 1,000 ML IV ONE ×2 (14:49→16:31)
[2019-12-14 15:34] LABS: Bilirubin,Urine NEG (Negative); Blood,Urine SM (Negative); Color,Urine Yellow (Yellow); Mucus,Urine FEW /HPF; Protein,Urine <15 mg/dL mg/dL (Negative); Urobilinogen,Urine < 2.0 mg/dL (<2.0)
--- NOTE | 2019-12-14 15:51 | Emergency Department Report ---
<MARIANO TRUJILLOMere - Last Filed: 12/14/19 18:21> History of Present Illness - General Chief Complaint: Overdose Stated Complaint: OVER DOSE Time Seen by Provider: 12/14/19 14:33 Source: patient Mode of arrival: Wheelchair Limitations: Physical Limitation - History of Present Illness Initial Comments: 39-year-old female, history of alcohol abuse, presents to ED for overdose. Patient was brought in and dropped off by someone, who subsequently left without providing any information. Patient reports she took 5 or 6 Librium tabs. Patient is unsure when the ingestion occurred. Patient denies suicidal ideation, states she was only trying to get some sleep. Patient also apparently had an empty bottle of Percocet on her. Patient denies any alcohol intake. MD Complaint: other -: unknown Intent: want to go to sleep Associated Symptoms: lethargy Treatments Prior to Arrival: none - Related Data Previous Rx's Medication Instructions Recorded Last Taken Type Doxycycline Hyclate 100 mg PO Q12H #20 tablet. 08/20/19 Unknown Rx Fluconazole (Nf) [Diflucan TAB] 150 mg PO ONCE #1 tablet 08/20/19 Unknown Rx Calcium Carbonate [[id number]] 500 mg PO QDAY #30 tablet 09/24/19 Unknown Rx Naproxen [EC-Naprosyn] 500 mg PO BID PRN #14 tablet. 11/08/19 Unknown Rx Famotidine [Pepcid] 20 mg PO BID #60 tablet 11/30/19 Unknown Rx Magnesium Chloride [Slow-Mag] 2 tab PO DAILY #60 tablet. 11/30/19 Unknown Rx Multivitamin with Folic Acid [[facility] 400 mcg PO QDAY #30 tablet 11/30/19 Unknown Rx One Daily Essential Tablet] Potassium Chloride 20 meq PO Q12H #12 packet 11/30/19 Unknown Rx chlordiazePOXIDE [Librium] 25 mg PO Q6H #30 capsule 11/30/19 Unknown Rx Allergies Allergy/AdvReac Type Severity Reaction Status Date / Time bee venom protein (honey bee) Allergy Unknown Verified 09/24/19 17:35 metoprolol Allergy Hives Verified 09/28/19 22:06 tramadol Allergy Hives Verified 09/24/19 17:35 ED Review of Systems Comment: All other systems reviewed and negative Psychiatric: denies: suicidal thoughts ED Past Medical Hx - Past Medical History Hx Seizures: Yes (first on 09/25/2019) Hx Psychiatric Treatment: Yes (ETOH abuse) Additional medical history: history of SVT - Surgical History Additional Surgical History: elbow surgeries? BILATERAL CARPAL TUNNEL SURGERY 2017 - Social History Smoking Status: Current Every Day Smoker Substance Use Type: Alcohol - Medications Home Medications: Home Medications Medication Instructions Recorded Confirmed Last Taken Type Doxycycline Hyclate 100 mg PO Q12H #20 tablet. 08/20/19 Unknown Rx Fluconazole (Nf) [Diflucan TAB] 150 mg PO ONCE #1 tablet 08/20/19 Unknown Rx Calcium Carbonate [[id number]] 500 mg PO QDAY #30 tablet 09/24/19 Unknown Rx Naproxen [EC-Naprosyn] 500 mg PO BID PRN #14 tablet. 11/08/19 Unknown Rx Famotidine [Pepcid] 20 mg PO BID #60 tablet 11/30/19 Unknown Rx Magnesium Chloride [Slow-Mag] 2 tab PO DAILY #60 tablet. 11/30/19 Unknown Rx Multivitamin with Folic Acid [[facility] 400 mcg PO QDAY #30 tablet 11/30/19 Unknown Rx One Daily Essential Tablet] Potassium Chloride 20 meq PO Q12H #12 packet 11/30/19 Unknown Rx chlordiazePOXIDE [Librium] 25 mg PO Q6H #30 capsule 11/30/19 Unknown Rx ED Physical Exam - General Limitations: Physical Limitation General appearance: in no apparent distress, appears intoxicated, lethargic - Head Head exam: Present: atraumatic, normocephalic - ENT ENT exam: Present: mucous membranes moist - Neck Neck exam: Present: normal inspection - Respiratory Respiratory exam: Present: normal lung sounds bilaterally. Absent: respiratory distress - Cardiovascular Cardiovascular Exam: Present: normal rhythm, tachycardia - GI/Abdominal GI/Abdominal exam: Present: soft. Absent: distended, tenderness - Extremities Exam Extremities exam: Present: normal inspection - Neurological Exam Neurological exam: Present: alert. Absent: oriented X3 (Oriented to self and place) - Psychiatric Psychiatric exam: Absent: suicidal ideation - Skin Skin exam: Present: warm, dry, intact, normal color ED Course - Reevaluation(s) Reevaluation #1: 12/14/19 16:02 [place] w/ Sharon kemp/ Poison Control. Recommends repeat LFTs in 8 hrs, if elevated will need Acetadote. No need for repeat tylenol. ED Medical Decision Making - Lab Data Result diagrams: 12/14/19 13:33 12/14/19 13:33 - Medical Decision Making 39-year-old female with history of chronic alcoholism presents to ED intoxicated, reporting intentional ingestion of Librium x5 or 6. It is unclear when patient supposedly took the Librium, patient states yesterday, however patient also believes that today is Friday. Patient currently has alcohol level of 250. Patient has had chronically elevated LFTs in the past. Today her labs are actually lower than they have been on the last couple of ED visits. Spoke with poison control, who advises to repeat LFTs in 8 hours. Repeating Tylenol level is not recommended. If repeat LFTs are elevated, Acetadote is recommended, as there is report that patient had an empty bottle of Percocet, Tylenol level is 5. If LFTs are stable, then patient will be medically clear for mental health evaluation. ED Disposition Condition: Stable Referrals: PRIMARY CAREMD [Primary Care Provider] - 3-5 Days <SARAY KHOURY - Last Filed: 12/15/19 01:44> ED Review of Systems ROS: Stated complaint: OVER DOSE Other details as noted in HPI ED Course Vital Signs 12/14/19 12/14/19 12/14/19 13:12 14:10 14:31 Temperature 98.7 F Pulse Rate 144 H 96 H Respiratory 20 18 18 Rate Blood Pressure 130/93 105/69 [Right] O2 Sat by Pulse 100 99 Oximetry 12/14/19 12/15/19 16:25 01:30 Temperature 97.5 F L Pulse Rate 102 H 91 H Respiratory 18 18 Rate Blood Pressure 98/52 139/83 [Right] O2 Sat by Pulse 98 100 Oximetry - Reevaluation(s) Reevaluation #2: 12/15/19 01:43 Repeat LFTs are improving. Patient is medically cleared at this time. Because of the patient's poor insight and overdose she will remain here to be evaluated by mental health assessment team. ED Medical Decision Making - Lab Data Result diagrams: 12/14/19 13:33 12/14/19 13:33 Lab Results 12/14/19 12/14/19 12/14/19 Range/Units 13:26 13:33 13:33 WBC (4.5-11.0) K/mm3 RBC (3.65-5.03) M/mm3 Hgb (10.1-14.3) gm/dl Hct (30.3-42.9) % MCV (79-97) fl MCH (28-32) pg MCHC (30-34) % RDW (13.2-15.2) % Plt Count (140-440) K/mm3 Lymph % (Auto) (13.4-35.0) % [place] % (Auto) (0.0-7.3) % Eos % (Auto) (0.0-4.3) % Baso % (Auto) (0.0-1.8) % Lymph # (1.2-5.4) K/mm3 [place] # (0.0-0.8) K/mm3 Eos # (0.0-0.4) K/mm3 Baso # (0.0-0.1) K/mm3 Add Manual Diff Seg Neutrophils % (40.0-70.0) % Nucleated RBC % Seg Neutrophils # (1.8-7.7) K/mm3 WBC Morphology Hypersegmented Neuts Hyposegmented Neuts Hypogranular Neuts Smudge Cells Toxic Granulation Toxic Vacuolation Dohle Bodies Pelger-Huet Anomaly Christine Rods Platelet Estimate Clumped Platelets Plt Clumps, EDTA Large Platelets Giant Platelets Platelet Satelliting Plt Morphology Comment RBC Morphology Dimorphic RBCs Polychromasia Hypochromasia Poikilocytosis Anisocytosis Microcytosis Macrocytosis Spherocytes Pappenheimer Bodies Sickle Cells Target Cells Tear Drop Cells Ovalocytes Helmet Cells [place] Bodies [place] Rings Mercer Cells Bite Cells Crenated Cell Elliptocytes Acanthocytes (Spur) Rouleaux Hemoglobin C Crystals Schistocytes Malaria parasites Petar Bodies Hem Pathologist Commnt PT (12.2-14.9) Sec. INR (0.87-1.13) APTT (24.2-36.6) Sec. Sodium 144 (137-145) mmol/L Potassium 3.3 L (3.6-5.0) mmol/L Chloride 106.0 (98-107) mmol/L Carbon Dioxide 19 L (22-30) mmol/L Anion Gap 22 mmol/L BUN 3 L (7-17) mg/dL Creatinine 0.4 L (0.7-1.2) mg/dL Estimated GFR > 60 ml/min BUN/Creatinine Ratio 8 % Glucose 107 H (65-100) mg/dL Calcium 8.4 (8.4-10.2) mg/dL Magnesium (1.7-2.3) mg/dL Total Bilirubin (0.1-1.2) mg/dL Direct Bilirubin (0-0.2) mg/dL Indirect Bilirubin mg/dL AST (5-40) units/L ALT (7-56) units/L Alkaline Phosphatase (35-129) units/L Total Creatine Kinase (30-135) units/L CK-MB (CK-2) (0.0-4.0) ng/mL CK-MB (CK-2) Rel Index (0-4) Total Protein (6.3-8.2) g/dL Albumin (3.9-5) g/dL Albumin/Globulin Ratio % Urine Color (Yellow) Urine Turbidity (Clear) Urine pH (5.0-7.0) Ur Specific [place] (1.003-1.030) Urine Protein (Negative) mg/dL Urine Glucose (UA) (Negative) mg/dL Urine Ketones (Negative) mg/dL Urine Blood (Negative) Urine Nitrite (Negative) Urine Bilirubin (Negative) Urine Urobilinogen (<2.0) mg/dL Ur Leukocyte Esterase (Negative) Urine WBC (Auto) (0.0-6.0) /HPF Urine RBC (Auto) (0.0-6.0) /HPF U Epithel Cells (Auto) (0-13.0) /HPF Urine Mucus /HPF Urine HCG, Qual (Negative) Salicylates < 0.3 L (2.8-20.0) mg/dL Urine Opiates Screen Urine Methadone Screen Acetaminophen 5.0 L (10.0-30.0) ug/mL Ur Barbiturates Screen Ur Phencyclidine Scrn Ur Amphetamines Screen U Benzodiazepines Scrn Urine Cocaine Screen U Marijuana (THC) Screen Drugs of Abuse Note Plasma/Serum Alcohol (0-0.07) % 12/14/19 12/14/19 12/14/19 Range/Units 13:33 13:33 13:33 WBC 4.9 (4.5-11.0) K/mm3 RBC 2.96 L (3.65-5.03) M/mm3 Hgb 7.8 L (10.1-14.3) gm/dl Hct 24.8 L (30.3-42.9) % MCV 84 (79-97) fl MCH 26 L (28-32) pg MCHC 31 (30-34) % RDW 23.1 H (13.2-15.2) % Plt Count 168 (140-440) K/mm3 Lymph % (Auto) 31.7 (13.4-35.0) % [place] % (Auto) 9.1 H (0.0-7.3) % Eos % (Auto) 1.4 (0.0-4.3) % Baso % (Auto) 0.5 (0.0-1.8) % Lymph # 1.5 (1.2-5.4) K/mm3 [place] # 0.4 (0.0-0.8) K/mm3 Eos # 0.1 (0.0-0.4) K/mm3 Baso # 0.0 (0.0-0.1) K/mm3 Add Manual Diff Complete Seg Neutrophils % 57.3 (40.0-70.0) % Nucleated RBC % Not Reportable Seg Neutrophils # 2.7 (1.8-7.7) K/mm3 WBC Morphology Not Reportable Hypersegmented Neuts Not Reportable Hyposegmented Neuts Not Reportable Hypogranular Neuts Not Reportable Smudge Cells Not Reportable Toxic Granulation Not Reportable Toxic Vacuolation Not Reportable Dohle Bodies Not Reportable Pelger-Huet Anomaly Not Reportable Christine Rods Not Reportable Platelet Estimate Not Reportable Clumped Platelets Not Reportable Plt Clumps, EDTA Not Reportable Large Platelets Not Reportable Giant Platelets Not Reportable Platelet Satelliting Not Reportable Plt Morphology Comment Not Reportable RBC Morphology Not Reportable Dimorphic RBCs Not Reportable Polychromasia Not Reportable Hypochromasia Not Reportable Poikilocytosis Not Reportable Anisocytosis Not Reportable Microcytosis Not Reportable Macrocytosis Not Reportable Spherocytes Not Reportable Pappenheimer Bodies Not Reportable Sickle Cells Not Reportable Target Cells Not Reportable Tear Drop Cells Not Reportable Ovalocytes Not Reportable Helmet Cells Not Reportable [place] Bodies Not Reportable [place] Rings Not Reportable Lesley Cells Not Reportable Bite Cells Not Reportable Crenated Cell Not Reportable Elliptocytes Not Reportable Acanthocytes (Spur) Not Reportable Rouleaux Not Reportable Hemoglobin C Crystals Not Reportable Schistocytes Not Reportable Malaria parasites Not Reportable Petar Bodies Not Reportable Hem Pathologist Commnt Not Reportable PT (12.2-14.9) Sec. INR (0.87-1.13) APTT (24.2-36.6) Sec. Sodium (137-145) mmol/L Potassium (3.6-5.0) mmol/L Chloride (98-107) mmol/L Carbon Dioxide (22-30) mmol/L Anion Gap mmol/L BUN (7-17) mg/dL Creatinine (0.7-1.2) mg/dL Estimated GFR ml/min BUN/Creatinine Ratio % Glucose (65-100) mg/dL Calcium (8.4-10.2) mg/dL Magnesium 1.40 L (1.7-2.3) mg/dL Total Bilirubin 0.60 (0.1-1.2) mg/dL Direct Bilirubin 0.4 H (0-0.2) mg/dL Indirect Bilirubin 0.2 mg/dL AST 147 H (5-40) units/L ALT 50 (7-56) units/L Alkaline Phosphatase 163 H (35-129) units/L Total Creatine Kinase 202 H (30-135) units/L CK-MB (CK-2) 1.0 (0.0-4.0) ng/mL CK-MB (CK-2) Rel Index 0.4 (0-4) Total Protein 6.3 (6.3-8.2) g/dL Albumin 3.6 L (3.9-5) g/dL Albumin/Globulin Ratio 1.3 % Urine Color (Yellow) Urine Turbidity (Clear) Urine pH (5.0-7.0) Ur Specific [place] (1.003-1.030) Urine Protein (Negative) mg/dL Urine Glucose (UA) (Negative) mg/dL Urine Ketones (Negative) mg/dL Urine Blood (Negative) Urine Nitrite (Negative) Urine Bilirubin (Negative) Urine Urobilinogen (<2.0) mg/dL Ur Leukocyte Esterase (Negative) Urine WBC (Auto) (0.0-6.0) /HPF Urine RBC (Auto) (0.0-6.0) /HPF U Epithel Cells (Auto) (0-13.0) /HPF Urine Mucus /HPF Urine HCG, Qual (Negative) Salicylates (2.8-20.0) mg/dL Urine Opiates Screen Urine Methadone Screen Acetaminophen (10.0-30.0) ug/mL Ur Barbiturates Screen Ur Phencyclidine Scrn Ur Amphetamines Screen U Benzodiazepines Scrn Urine Cocaine Screen U Marijuana (THC) Screen Drugs of Abuse Note Plasma/Serum Alcohol 0.25 H (0-0.07) % 12/14/19 12/14/19 12/14/19 Range/Units 14:10 14:10 16:17 WBC (4.5-11.0) K/mm3 RBC (3.65-5.03) M/mm3 Hgb (10.1-14.3) gm/dl Hct (30.3-42.9) % MCV (79-97) fl MCH (28-32) pg MCHC (30-34) % RDW (13.2-15.2) % Plt Count (140-440) K/mm3 Lymph % (Auto) (13.4-35.0) % [place] % (Auto) (0.0-7.3) % Eos % (Auto) (0.0-4.3) % Baso % (Auto) (0.0-1.8) % Lymph # (1.2-5.4) K/mm3 [place] # (0.0-0.8) K/mm3 Eos # (0.0-0.4) K/mm3 Baso # (0.0-0.1) K/mm3 Add Manual Diff Seg Neutrophils % (40.0-70.0) % Nucleated RBC % Seg Neutrophils # (1.8-7.7) K/mm3 WBC Morphology Hypersegmented Neuts Hyposegmented Neuts Hypogranular Neuts Smudge Cells Toxic Granulation Toxic Vacuolation Dohle Bodies Pelger-Huet Anomaly Christine Rods Platelet Estimate Clumped Platelets Plt Clumps, EDTA Large Platelets Giant Platelets Platelet Satelliting Plt Morphology Comment RBC Morphology Dimorphic RBCs Polychromasia Hypochromasia Poikilocytosis Anisocytosis Microcytosis Macrocytosis Spherocytes Pappenheimer Bodies Sickle Cells Target Cells Tear Drop Cells Ovalocytes Helmet Cells [place] Bodies [place] Rings Lesley Cells Bite Cells Crenated Cell Elliptocytes Acanthocytes (Spur) Rouleaux Hemoglobin C Crystals Schistocytes Malaria parasites Petar Bodies Hem Pathologist Commnt PT 13.2 (12.2-14.9) Sec. INR 0.98 (0.87-1.13) APTT 25.3 (24.2-36.6) Sec. Sodium (137-145) mmol/L Potassium (3.6-5.0) mmol/L Chloride (98-107) mmol/L Carbon Dioxide (22-30) mmol/L Anion Gap mmol/L BUN (7-17) mg/dL Creatinine (0.7-1.2) mg/dL Estimated GFR ml/min BUN/Creatinine Ratio % Glucose (65-100) mg/dL Calcium (8.4-10.2) mg/dL Magnesium (1.7-2.3) mg/dL Total Bilirubin (0.1-1.2) mg/dL Direct Bilirubin (0-0.2) mg/dL Indirect Bilirubin mg/dL AST (5-40) units/L ALT (7-56) units/L Alkaline Phosphatase (35-129) units/L Total Creatine Kinase (30-135) units/L CK-MB (CK-2) (0.0-4.0) ng/mL CK-MB (CK-2) Rel Index (0-4) Total Protein (6.3-8.2) g/dL Albumin (3.9-5) g/dL Albumin/Globulin Ratio % Urine Color Yellow (Yellow) Urine Turbidity Clear (Clear) Urine pH 6.0 (5.0-7.0) Ur Specific [place] 1.008 (1.003-1.030) Urine Protein <15 mg/dl (Negative) mg/dL Urine Glucose (UA) Neg (Negative) mg/dL Urine Ketones Neg (Negative) mg/dL Urine Blood Sm (Negative) Urine Nitrite Neg (Negative) Urine Bilirubin Neg (Negative) Urine Urobilinogen < 2.0 (<2.0) mg/dL Ur Leukocyte Esterase Neg (Negative) Urine WBC (Auto) 2.0 (0.0-6.0) /HPF Urine RBC (Auto) 2.0 (0.0-6.0) /HPF U Epithel Cells (Auto) 2.0 (0-13.0) /HPF Urine Mucus Few /HPF Urine HCG, Qual (Negative) Salicylates (2.8-20.0) mg/dL Urine Opiates Screen Presumptive negative Urine Methadone Screen Presumptive negative Acetaminophen (10.0-30.0) ug/mL Ur Barbiturates Screen Presumptive negative Ur Phencyclidine Scrn Presumptive negative Ur Amphetamines Screen Presumptive negative U Benzodiazepines Scrn Presumptive positive Urine Cocaine Screen Presumptive positive U Marijuana (THC) Screen Presumptive negative Drugs of Abuse Note Disclamer Plasma/Serum Alcohol (0-0.07) % 12/14/19 12/15/19 Range/Units 16:24 00:03 WBC (4.5-11.0) K/mm3 RBC (3.65-5.03) M/mm3 Hgb (10.1-14.3) gm/dl Hct (30.3-42.9) % MCV (79-97) fl MCH (28-32) pg MCHC (30-34) % RDW (13.2-15.2) % Plt Count (140-440) K/mm3 Lymph % (Auto) (13.4-35.0) % [place] % (Auto) (0.0-7.3) % Eos % (Auto) (0.0-4.3) % Baso % (Auto) (0.0-1.8) % Lymph # (1.2-5.4) K/mm3 [place] # (0.0-0.8) K/mm3 Eos # (0.0-0.4) K/mm3 Baso # (0.0-0.1) K/mm3 Add Manual Diff Seg Neutrophils % (40.0-70.0) % Nucleated RBC % Seg Neutrophils # (1.8-7.7) K/mm3 WBC Morphology Hypersegmented Neuts Hyposegmented Neuts Hypogranular Neuts Smudge Cells Toxic Granulation Toxic Vacuolation Dohle Bodies Pelger-Huet Anomaly Christine Rods Platelet Estimate Clumped Platelets Plt Clumps, EDTA Large Platelets Giant Platelets Platelet Satelliting Plt Morphology Comment RBC Morphology Dimorphic RBCs Polychromasia Hypochromasia Poikilocytosis Anisocytosis Microcytosis Macrocytosis Spherocytes Pappenheimer Bodies Sickle Cells Target Cells Tear Drop Cells Ovalocytes Helmet Cells [place] Bodies [place] Rings Lesley Cells Bite Cells Crenated Cell Elliptocytes Acanthocytes (Spur) Rouleaux Hemoglobin C Crystals Schistocytes Malaria parasites Petar Bodies Hem Pathologist Commnt PT (12.2-14.9) Sec. INR (0.87-1.13) APTT (24.2-36.6) Sec. Sodium (137-145) mmol/L Potassium (3.6-5.0) mmol/L Chloride (98-107) mmol/L Carbon Dioxide (22-30) mmol/L Anion Gap mmol/L BUN (7-17) mg/dL Creatinine (0.7-1.2) mg/dL Estimated GFR ml/min BUN/Creatinine Ratio % Glucose (65-100) mg/dL Calcium (8.4-10.2) mg/dL Magnesium (1.7-2.3) mg/dL Total Bilirubin 0.40 (0.1-1.2) mg/dL Direct Bilirubin 0.2 (0-0.2) mg/dL Indirect Bilirubin 0.2 mg/dL AST 101 H (5-40) units/L ALT 40 (7-56) units/L Alkaline Phosphatase 118 (35-129) units/L Total Creatine Kinase (30-135) units/L CK-MB (CK-2) (0.0-4.0) ng/mL CK-MB (CK-2) Rel Index (0-4) Total Protein 5.2 L (6.3-8.2) g/dL Albumin 2.9 L (3.9-5) g/dL Albumin/Globulin Ratio 1.3 % Urine Color (Yellow) Urine Turbidity (Clear) Urine pH (5.0-7.0) Ur Specific [place] (1.003-1.030) Urine Protein (Negative) mg/dL Urine Glucose (UA) (Negative) mg/dL Urine Ketones (Negative) mg/dL Urine Blood (Negative) Urine Nitrite (Negative) Urine Bilirubin (Negative) Urine Urobilinogen (<2.0) mg/dL Ur Leukocyte Esterase (Negative) Urine WBC (Auto) (0.0-6.0) /HPF Urine RBC (Auto) (0.0-6.0) /HPF U Epithel Cells (Auto) (0-13.0) /HPF Urine Mucus /HPF Urine HCG, Qual Negative (Negative) Salicylates (2.8-20.0) mg/dL Urine Opiates Screen Urine Methadone Screen Acetaminophen (10.0-30.0) ug/mL Ur Barbiturates Screen Ur Phencyclidine Scrn Ur Amphetamines Screen U Benzodiazepines Scrn Urine Cocaine Screen U Marijuana (THC) Screen Drugs of Abuse Note Plasma/Serum Alcohol (0-0.07) % Critical care attestation.: If time is entered above; I have spent that time in minutes in the direct care of this critically ill patient, excluding procedure time.
[2019-12-14 15:52] LABS: Amphetamine Screen,Urine PRESUMPTIVE NEGATIVE; Benzodiazepines Screen,Urine PRESUMPTIVE POSITIVE; Cannabinoid Screen,Urine PRESUMPTIVE NEGATIVE; Cocaine Screen,Urine PRESUMPTIVE POSITIVE; Methadone Screen,Urine PRESUMPTIVE NEGATIVE; Opiate Screen,Urine PRESUMPTIVE NEGATIVE
[2019-12-14] MEDS ORDERED: POTASSIUM CHLORIDE ER 20 MEQ TAB PO ONE (16:01)
[2019-12-14 16:54] LABS: INR 0.98 (0.87-1.13)
[2019-12-14 16:55] LABS: Partial Thromboplastin Time 25.3 Sec. (24.2-36.6)
[2019-12-14 17:09] LABS: HCG Qualitative,Urine Negative (Negative)
[2019-12-15 00:32] LABS: Albumin 2.9 g/dL (3.9-5); Bilirubin,Direct 0.2 mg/dL (0-0.2)
[2019-12-15 10:17] VITALS: BP 137/85
--- NOTE | 2019-12-15 11:31 | Consultation ---
History of Present Illness - Reason for Consult Consult date: 12/15/19 Reason for consult: MHE Requesting physician: MARIANO TRUJILLO - Chief Complaint Chief complaint: Suspected OD - History of Present Psychiatric Illness Per ED Provider: 39-year-old female, history of alcohol abuse, presents to ED for overdose. Patient was brought in and dropped off by someone, who subsequently left without providing any information. Patient reports she took 5 or 6 Librium tabs. Patient is unsure when the ingestion occurred. Patient denies suicidal ideation, states she was only trying to get some sleep. Patient also apparently had an empty bottle of Percocet on her. Patient denies any alco hol intake. PSYCH HPI Patient is a single unemployed -Portuguese female with past psychiatric history of alcohol use disorder currently on Librium and no significant past medical history who was presented to the ER for evaluation. Patient reports she has been prescribed Librium for alcohol withdrawal yesterday she was having trouble sleeping and states she had to take more pills. She denies any suicidal intention, denies past psychiatric history for admission for SI or HI. Patient reports she currently lives by self with her fianc who is mostly on the road working. Patient describes a good and stable mood, denies being depressed or excessively nervous. Patient eats well Patient denies panic attacks, recurrent nightmares or flashbacks. Patient denies symptoms suggestive of OCD or PTSD. Patient denies hallucinations, paranoia, thought interference and no features suggestive of hypomania or marisel. She completely denies suicidal or homicidal thoughts. PAST PSYCHIATRIC HISTORY Diagnoses: none reported Suicide attempts or Self-harm behavior: none reported Prior psychiatric hospitalizations: none reported Substance Abuse history: Alcohol Previous psychiatric medications tried: none reported Outpatient treatment: Alcohol detox PAST MEDICAL HISTORY: None eported Family Psychiatric History: None reported or documented SOCIAL HISTORY Marital Status: Engaged Living Arrangements: with self Employment Status: unemployed Access to guns/weapons: none reported Education: High school History of Abuse: none reported Legal History: none reported REVIEW OF SYSTEMS Constitutional: Negative for weight loss ENT: Negative for stridor Respiratory: Negative for cough or hemoptysis All other systems reviewed and are negative MENTAL STATUS EXAMINATION General Appearance and Behavior: Age appropriate, good hygiene, wearing appropriate clothes, good eye contact, cooperative polite with questioning. Cooperation: Participating/engaged Psychomotor Behavior:unremarkable and within normal limits Mood: Good Affect and affective range: congruent mood Thought Process: Fluent/Logical Thought Content: Within reality Speech: Normal volume, Regular rate and rhythm Intellectual Functioning: Average Suicidal Ideation: Denies SI Homicidal Ideation: Denies HI Impulse Control:Unimpaired Insight and Judgment: Normal insight and judgment Memory: Normal Attention: Normal Orientation: Alert, oriented, anxious RECOMMENDATIONS Substance use disorder MEDICATIONS: Risks, benefits and alternatives of medications discussed with the patient, questions answered and consent obtained from patient. PSYCHOTHERAPY: Supportive psychotherapy provided MEDICAL: Per primary team DELIRIUM PRECAUTIONS: Please re-orient patient frequently, keep lights on during the day, and minimize benzodiazepines and opiates as these medications could worsen patient's confusion. 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 LEGAL STATUS: 1013 rescinded FOLLOW-UP: Will sign off Thank you for the consult. Please contact with any questions and/or concerns. Medications and Allergies Allergies Allergy/AdvReac Type Severity Reaction Status Date / Time bee venom protein (honey bee) Allergy Unknown Verified 09/24/19 17:35 metoprolol Allergy Hives Verified 09/28/19 22:06 tramadol Allergy Hives Verified 09/24/19 17:35 Home Medications Medication Instructions Recorded Confirmed Last Taken Type Doxycycline Hyclate 100 mg PO Q12H #20 tablet. 08/20/19 Unknown Rx Fluconazole (Nf) [Diflucan TAB] 150 mg PO ONCE #1 tablet 08/20/19 Unknown Rx Calcium Carbonate [[id number]-360] 500 mg PO QDAY #30 tablet 09/24/19 Unknown Rx Naproxen [EC-Naprosyn] 500 mg PO BID PRN #14 tablet. 11/08/19 Unknown Rx Famotidine [Pepcid] 20 mg PO BID #60 tablet 11/30/19 Unknown Rx Magnesium Chloride [Slow-Mag] 2 tab PO DAILY #60 tablet. 11/30/19 Unknown Rx Multivitamin with Folic Acid [[facility]vs 400 mcg PO QDAY #30 tablet 11/30/19 Unknown Rx One Daily Essential Tablet] Potassium Chloride 20 meq PO Q12H #12 packet 11/30/19 Unknown Rx chlordiazePOXIDE [Librium] 25 mg PO Q6H #30 capsule 11/30/19 Unknown Rx Mental Status Exam - Vital signs Last Vital Signs Temp 98.1 F 12/15/19 10:15 Pulse 86 12/15/19 10:15 Resp 18 12/15/19 10:15 BP 137/85 12/15/19 10:15 Pulse Ox 100 12/15/19 01:30 Results Result Diagrams: 12/14/19 13:33 12/14/19 13:33 Abnormal lab results 12/14/19 12/14/19 12/14/19 Range/Units 13:26 13:33 13:33 RBC (3.65-5.03) M/mm3 Hgb (10.1-14.3) gm/dl Hct (30.3-42.9) % MCH (28-32) pg RDW (13.2-15.2) % [place] % (Auto) (0.0-7.3) % Potassium 3.3 L (3.6-5.0) mmol/L Carbon Dioxide 19 L (22-30) mmol/L BUN 3 L (7-17) mg/dL Creatinine 0.4 L (0.7-1.2) mg/dL Glucose 107 H (65-100) mg/dL Magnesium (1.7-2.3) mg/dL Direct Bilirubin (0-0.2) mg/dL AST (5-40) units/L Alkaline Phosphatase (35-129) units/L Total Creatine Kinase (30-135) units/L Total Protein (6.3-8.2) g/dL Albumin (3.9-5) g/dL Salicylates < 0.3 L (2.8-20.0) mg/dL Acetaminophen 5.0 L (10.0-30.0) ug/mL Plasma/Serum Alcohol (0-0.07) % 12/14/19 12/14/19 12/14/19 Range/Units 13:33 13:33 13:33 RBC 2.96 L (3.65-5.03) M/mm3 Hgb 7.8 L (10.1-14.3) gm/dl Hct 24.8 L (30.3-42.9) % MCH 26 L (28-32) pg RDW 23.1 H (13.2-15.2) % [place] % (Auto) 9.1 H (0.0-7.3) % Potassium (3.6-5.0) mmol/L Carbon Dioxide (22-30) mmol/L BUN (7-17) mg/dL Creatinine (0.7-1.2) mg/dL Glucose (65-100) mg/dL Magnesium 1.40 L (1.7-2.3) mg/dL Direct Bilirubin 0.4 H (0-0.2) mg/dL AST 147 H (5-40) units/L Alkaline Phosphatase 163 H (35-129) units/L Total Creatine Kinase 202 H (30-135) units/L Total Protein (6.3-8.2) g/dL Albumin 3.6 L (3.9-5) g/dL Salicylates (2.8-20.0) mg/dL Acetaminophen (10.0-30.0) ug/mL Plasma/Serum Alcohol 0.25 H (0-0.07) % 12/15/19 Range/Units 00:03 RBC (3.65-5.03) M/mm3 Hgb (10.1-14.3) gm/dl Hct (30.3-42.9) % MCH (28-32) pg RDW (13.2-15.2) % [place] % (Auto) (0.0-7.3) % Potassium (3.6-5.0) mmol/L Carbon Dioxide (22-30) mmol/L BUN (7-17) mg/dL Creatinine (0.7-1.2) mg/dL Glucose (65-100) mg/dL Magnesium (1.7-2.3) mg/dL Direct Bilirubin (0-0.2) mg/dL AST 101 H (5-40) units/L Alkaline Phosphatase (35-129) units/L Total Creatine Kinase (30-135) units/L Total Protein 5.2 L (6.3-8.2) g/dL Albumin 2.9 L (3.9-5) g/dL Salicylates (2.8-20.0) mg/dL Acetaminophen (10.0-30.0) ug/mL Plasma/Serum Alcohol (0-0.07) % All other labs normal.
== END 2019-12-15 12:30 ==
LOC: ED 13:07
DX: T42.4X2A Poisoning by benzodiazepines, intentional self-harm, initial encounter (principal); R56.9 Unspecified convulsions; F17.200 Nicotine dependence, unspecified, uncomplicated; Z98.890 Other specified postprocedural states; Z79.899 Other long term (current) drug therapy; Z91.030 Bee allergy status; Z88.8 Allergy status to other drugs, medicaments and biological substances; Y92.89 Other specified places as the place of occurrence of the external cause
CPT/HCPCS: 36415; 80048; 80076; 80307; 81001; 81025; 82550; 82553; 83735; 85007; 85025; 85610; 85730; 93005; 99285; J7030; 80320; G0480

== ENCOUNTER 2020-01-07 18:57 | Emergency (ER) | payer SELFPAY ==
[2020-01-07 19:24] VITALS: BP 123/76
== END 2020-01-07 21:45 | disposition left against medical advice (07) ==
LOC: ED 18:57
DX: R00.0 Tachycardia, unspecified (principal); Z53.21 Procedure and treatment not carried out due to patient leaving prior to being seen by health care provider
CPT/HCPCS: 93005

== ENCOUNTER 2020-01-08 17:31 | Emergency (ER) | payer SELFPAY ==
[2020-01-08] MEDS ORDERED: ONDANSETRON 4 MG/2 ML INJ IV ONE (22:03)
[2020-01-08] MEDS ORDERED: FAMOTIDINE 20 MG/2 ML INJ IV ONE (22:03)
[2020-01-08] MEDS ORDERED: SODIUM CHLORIDE 0.9% 1000 ML 1,000 ML IV ONE (22:03)
[2020-01-08] MEDS ORDERED: KETOROLAC 30 MG/1 ML INJ IV ONE (22:31)
[2020-01-08 22:55] LABS: Mean Corpuscular HGB Conc 30 % (30-34); Mean Corpuscular Volume 84 fl (79-97); Platelet Count 279 K/mm3 (140-440)
[2020-01-08 23:00] LABS: Hemoglobin 9.6 gm/dl (10.1-14.3); Red Cell Distribution Width 25.9 % (13.2-15.2)
[2020-01-08 23:13] LABS: Alanine Aminotransferase 59 units/L (7-56); Albumin 4.8 g/dL (3.9-5); BUN/Creatinine Ratio 9; Blood Urea Nitrogen 9 mg/dL (7-17); Calcium 10.1 mg/dL (8.4-10.2); Hemolysis Index 7
[2020-01-09 00:32] LABS: Anisocytosis 1+; Hypochromasia 1+; Total Cells Counted 100
[2020-01-09 00:33] LABS: Platelet Estimate Consistent w Auto
[2020-01-09] MEDS ORDERED: SODIUM CHLORIDE 0.9% 1000 ML 1,000 ML IV ONE ×2 (00:33→00:37)
--- NOTE | 2020-01-09 01:10 | Emergency Department Report ---
Vomiting/Diarrhea - HPI Duration: Today Severity: moderate Nausea/Vomiting Severity: Moderate Diarrhea Severity: None Pain Location: Other (substernal) Pain Severity: Mild Symptoms: Yes Able to Tolerate Fluids (some), No Watery Diarrhea, No Bloody diarrhea, No Fever, No Recent Unusual Foods, No Recent Untreated Water, No Recent use of Antibiotics, No Family w/ Similar Symptoms, No Contacts w/ Similar Symptoms, No Rash, No Hematuria Other History: Patient is a 39-year-old F Dutch female who is presenting with some burning sensations in the mid chest. Patient states when she tries to eat or drink states the food feels as though is getting caught in her esophagus and she is begins to vomit. She states she now has streaks of blood in her vomit. She has been retching. She is able to swallow her own saliva. Patient has a history of heavy alcohol use but has not drank in the last 24 to 48 hours. <SARAY KHOURY - Last Filed: 01/09/20 01:01> <LISA KHOURY - Last Filed: 01/09/20 03:49> - HPI Chief Complaint: Nausea/Vomiting/Diarrhea Stated Complaint: V/CP Time Seen by Provider: 01/08/20 22:03 ED Review of Systems ROS: Stated complaint: V/CP Other details as noted in HPI Comment: All other systems reviewed and negative <SARAY KHOURY - Last Filed: 01/09/20 01:01> ROS: Stated complaint: V/CP Other details as noted in HPI <LISA KHOURY - Last Filed: 01/09/20 03:49> ED Past Medical Hx - Past Medical History Previous Medical History?: Yes Hx Seizures: Yes (first on 09/25/2019) Hx Psychiatric Treatment: Yes (ETOH abuse) Additional medical history: history of SVT - Surgical History Past Surgical History?: Yes Additional Surgical History: elbow surgeries? BILATERAL CARPAL TUNNEL SURGERY 2017 - Social History Smoking Status: Current Every Day Smoker Substance Use Type: Alcohol <SARAY KHOURY - Last Filed: 01/09/20 01:01> <LISA KHOURY - Last Filed: 01/09/20 03:49> - Medications Home Medications: Home Medications Medication Instructions Recorded Confirmed Last Taken Type Doxycycline Hyclate 100 mg PO Q12H #20 tablet. 08/20/19 Unknown Rx Fluconazole (Nf) [Diflucan TAB] 150 mg PO ONCE #1 tablet 08/20/19 Unknown Rx Calcium Carbonate [Qxlr-Hjp-537] 500 mg PO QDAY #30 tablet 09/24/19 Unknown Rx Naproxen [EC-Naprosyn] 500 mg PO BID PRN #14 tablet. 11/08/19 Unknown Rx Famotidine [Pepcid] 20 mg PO BID #60 tablet 11/30/19 Unknown Rx Magnesium Chloride [Slow-Mag] 2 tab PO DAILY #60 tablet. 11/30/19 Unknown Rx Multivitamin with Folic Acid [[facility] 400 mcg PO QDAY #30 tablet 11/30/19 Unknown Rx One Daily Essential Tablet] Potassium Chloride 20 meq PO Q12H #12 packet 11/30/19 Unknown Rx chlordiazePOXIDE [Librium] 25 mg PO Q6H #30 capsule 11/30/19 Unknown Rx Vomiting Diarrhea Exam - Exam General: Vital signs noted. No distress. Alert and acting appropriately. HEENT: Yes Moist Mucous Membranes, No Pharyngeal Erythema, No Pharyngeal Exudates, No Rhinorrhea, No Conjuctival Injection, No Frontal Tenderness, No Maxillary Tenderness Neck: No Adenopathy, No Rigidity Lungs: Yes Clear Lung Sounds, Yes Good Air Exchange, No Wheezes, No Stridor, No Cough, No Nasal Flaring, No Retractions, No Use of Accessory Muscles Heart exam: Regular: Yes, Murmur: No, Tachycardia: No Abdomen: Tenderness: No, Peritoneal Signs: No, Distention: No, Hyperactive Bowel sounds: No Skin exam: Rash: No, Edema: No, Normal turgor: Yes Neurologic: Alert and oriented, no deficits. Musculoskeletal: Unremarkable. <SARAY KHOURY - Last Filed: 01/09/20 01:01> - Exam General: Vital signs noted. No distress. Alert and acting appropriately. Neurologic: Alert and oriented, no deficits. Musculoskeletal: Unremarkable. <LISA KHOURY - Last Filed: 01/09/20 03:49> ED Course Vital Signs 01/08/20 17:39 Temperature 97.9 F Pulse Rate 116 H Respiratory 16 Rate Blood Pressure 132/90 [Right] O2 Sat by Pulse 99 Oximetry - Reevaluation(s) Reevaluation #1: 01/09/20 01:03 Patient's laboratory studies initially showed that she has some metabolic acidosis. Renal function is normal. Potassium was slightly elevated. Repeat potassium was done secondary to believing this was lab error and was actually more elevated. Patient will be given some additional fluid and will recheck her chemistries. Patient states she feels better at this time and is in good spirits. Patient is ambulatory within the department. <SARAY KHOURY - Last Filed: 01/09/20 01:01> Vital Signs 01/08/20 17:39 Temperature 97.9 F Pulse Rate 116 H Respiratory 16 Rate Blood Pressure 132/90 [Right] O2 Sat by Pulse 99 Oximetry <KHOURYLISA - Last Filed: 01/09/20 03:49> ED Medical Decision Making - Lab Data Result diagrams: 01/08/20 22:29 01/09/20 Unknown Lab Results 01/08/20 01/08/20 01/09/20 Range/Units 22:29 22:29 Unknown WBC 6.4 (4.5-11.0) K/mm3 RBC 3.80 (3.65-5.03) M/mm3 Hgb 9.6 L (10.1-14.3) gm/dl Hct 32.0 (30.3-42.9) % MCV 84 (79-97) fl MCH 25 L (28-32) pg MCHC 30 (30-34) % RDW 25.9 H (13.2-15.2) % Plt Count 279 (140-440) K/mm3 Add Manual Diff Complete Total Counted 100 Seg Neuts % (Manual) 82.0 H (40.0-70.0) % Band Neutrophils % 0 % Lymphocytes % (Manual) 10.0 L (13.4-35.0) % Reactive Lymphs % (Man) 0 % Monocytes % (Manual) 5.0 (0.0-7.3) % Eosinophils % (Manual) 1.0 (0.0-4.3) % Basophils % (Manual) 2.0 H (0.0-1.8) % Metamyelocytes % 0 % Myelocytes % 0 % Promyelocytes % 0 % Blast Cells % 0 % Nucleated RBC % Not Reportable Seg Neutrophils # Man 5.2 (1.8-7.7) K/mm3 Band Neutrophils # 0.0 K/mm3 Lymphocytes # (Manual) 0.6 L (1.2-5.4) K/mm3 Abs React Lymphs (Man) 0.0 K/mm3 Monocytes # (Manual) 0.3 (0.0-0.8) K/mm3 Eosinophils # (Manual) 0.1 (0.0-0.4) K/mm3 Basophils # (Manual) 0.1 (0.0-0.1) K/mm3 Metamyelocytes # 0.0 K/mm3 Myelocytes # 0.0 K/mm3 Promyelocytes # 0.0 K/mm3 Blast Cells # 0.0 K/mm3 WBC Morphology Not Reportable Hypersegmented Neuts Not Reportable Hyposegmented Neuts Not Reportable Hypogranular Neuts Not Reportable Smudge Cells Not Reportable Toxic Granulation Not Reportable Toxic Vacuolation Not Reportable Dohle Bodies Not Reportable Pelger-Huet Anomaly Not Reportable Christine Rods Not Reportable Platelet Estimate Consistent w auto Clumped Platelets Not Reportable Plt Clumps, EDTA Not Reportable Large Platelets Not Reportable Giant Platelets Not Reportable Platelet Satelliting Not Reportable Plt Morphology Comment Not Reportable RBC Morphology Not Reportable Dimorphic RBCs Not Reportable Polychromasia Not Reportable Hypochromasia 1+ Poikilocytosis Not Reportable Anisocytosis 1+ Microcytosis Not Reportable Macrocytosis Not Reportable Spherocytes Not Reportable Pappenheimer Bodies Not Reportable Sickle Cells Not Reportable Target Cells Not Reportable Tear Drop Cells Not Reportable Ovalocytes Not Reportable Helmet Cells Not Reportable [place] Bodies Not Reportable [place] Rings Not Reportable Weare Cells Not Reportable Bite Cells Not Reportable Crenated Cell Not Reportable Elliptocytes Not Reportable Acanthocytes (Spur) Not Reportable Rouleaux Not Reportable Hemoglobin C Crystals Not Reportable Schistocytes Not Reportable Malaria parasites Not Reportable Petar Bodies Not Reportable Hem Pathologist Commnt No Sodium 139 (137-145) mmol/L Potassium 5.7 H 6.5 H* (3.6-5.0) mmol/L Chloride 97.9 L (98-107) mmol/L Carbon Dioxide 10 L (22-30) mmol/L Anion Gap 37 mmol/L BUN 9 (7-17) mg/dL Creatinine 1.0 (0.6-1.2) mg/dL Estimated GFR > 60 ml/min BUN/Creatinine Ratio 9 % Glucose 107 H (65-100) mg/dL Calcium 10.1 (8.4-10.2) mg/dL Total Bilirubin 0.90 (0.1-1.2) mg/dL AST 111 H (5-40) units/L ALT 59 H (7-56) units/L Alkaline Phosphatase 141 H (35-129) units/L Total Protein 8.4 H (6.3-8.2) g/dL Albumin 4.8 (3.9-5) g/dL Albumin/Globulin Ratio 1.3 % Lipase 9 L (13-60) units/L <SARAY KHOURY - Last Filed: 01/09/20 01:01> - Lab Data Result diagrams: 01/08/20 22:29 01/09/20 Unknown - Medical Decision Making I reevaluated Mrs. Dang. She is alert oriented x4. I explained that her second chemistry revealed that she had persistent alcoholic ketoacidosis with hyperkalemia. She has decided to leave AGAINST MEDICAL ADVICE. She prefers to hydrate at home. She will stop taking potassium supplementation. She was prescribed potassium supplementation through the emergency department. She does not have a primary physician. I strongly recommended obtaining primary care. She has decision-making capacity. She understands the risk of arrhythmia, kidney failure. <LISA KHOURY - Last Filed: 01/09/20 03:49> Critical care attestation.: If time is entered above; I have spent that time in minutes in the direct care of this critically ill patient, excluding procedure time. <SARAY KHOURY - Last Filed: 01/09/20 01:01> Critical care attestation.: If time is entered above; I have spent that time in minutes in the direct care of this critically ill patient, excluding procedure time. <LISA KHOURY - Last Filed: 01/09/20 03:49> ED Disposition <SARAY KHOURY - Last Filed: 01/09/20 01:01> Is pt being admited?: No Does the pt Need Aspirin: No <LISA KHOURY - Last Filed: 01/09/20 03:49> Clinical Impression: Alcoholic ketoacidosis, Hyperkalemia Disposition: DC-07 LEFT AGAINST MED ADVICE Condition: Stable Referrals: MICHAEL GALEANA MD [Staff Physician] - 3-5 Days Forms: AMA Form
[2020-01-09 03:21] LABS: Alanine Aminotransferase 44 units/L (7-56); Albumin 3.9 g/dL (3.9-5); BUN/Creatinine Ratio 9; Blood Urea Nitrogen 8 mg/dL (7-17); Calcium 8.4 mg/dL (8.4-10.2); Hemolysis Index 6
[2020-01-09] MEDS ORDERED: LORazepam 2 MG/ML VIAL IV ONE (03:22)
[2020-01-09 04:28] VITALS: BP 135/79
== END 2020-01-09 04:11 | disposition left against medical advice (07) ==
LOC: ED 17:31
DX: E87.2 Acidosis (principal); E87.5 Hyperkalemia; F10.20 Alcohol dependence, uncomplicated; G40.909 Epilepsy, unspecified, not intractable, without status epilepticus; Z79.899 Other long term (current) drug therapy; Z88.8 Allergy status to other drugs, medicaments and biological substances
CPT/HCPCS: 36415; 80053; 83690; 84132; 85007; 85025; 96361; 96374; 96375; 99283; J1885; J2060; J2405; J7030

== ENCOUNTER 2020-02-10 13:01 | Observation (INO) | payer SELFPAY ==
[2020-02-10] MEDS ORDERED: SODIUM CHLORIDE 0.9% 1000 ML 1,000 ML IV ONE ×2 (13:20)
[2020-02-10] MEDS ORDERED: ONDANSETRON 4 MG/2 ML INJ IV ONE ×2 (13:20→15:41)
[2020-02-10] MEDS ORDERED: DICYCLOMINE 20 MG/2 ML INJ IM ONE (13:20)
[2020-02-10] MEDS ORDERED: FAMOTIDINE 20 MG/2 ML INJ IV ONE ×2 (13:20→15:41)
[2020-02-10 13:29] LABS: Bilirubin,Urine NEG (Negative); Blood,Urine SM (Negative); Color,Urine Yellow (Yellow); Mucus,Urine FEW /HPF
--- NOTE | 2020-02-10 13:44 | Emergency Department Report ---
ED N/V/D HPI - General Chief complaint: Nausea/Vomiting/Diarrhea Stated complaint: NAUSEA/VOMITING Time Seen by Provider: 02/10/20 13:17 Source: patient, EMS Mode of arrival: Stretcher Limitations: No Limitations - History of Present Illness Initial comments: Patient is a 39-year-old F [place] female who is presenting with nausea and vomiting since last night. Patient has a history of heavy alcohol abuse and has been to the emergency department for similar complaints in the past. Patient last was here 1 month ago. At that time patient had hyperkalemia and a alcoholic ketoacidosis. Patient chose to continue her hydration at home and left AGAINST MEDICAL ADVICE. Patient states she has still been drinking heavily and started to vomit last night. She has a burning sensation in the epigastrium. She denies cough cold congestion fevers or chills at this time. - Related Data Previous Rx's Medication Instructions Recorded Last Taken Type Doxycycline Hyclate 100 mg PO Q12H #20 tablet. 08/20/19 Unknown Rx Fluconazole (Nf) [Diflucan TAB] 150 mg PO ONCE #1 tablet 08/20/19 Unknown Rx Calcium Carbonate [[id number]] 500 mg PO QDAY #30 tablet 09/24/19 Unknown Rx Naproxen [EC-Naprosyn] 500 mg PO BID PRN #14 tablet. 11/08/19 Unknown Rx Famotidine [Pepcid] 20 mg PO BID #60 tablet 11/30/19 Unknown Rx Magnesium Chloride [Slow-Mag] 2 tab PO DAILY #60 tablet. 11/30/19 Unknown Rx Multivitamin with Folic Acid [Cvs 400 mcg PO QDAY #30 tablet 11/30/19 Unknown Rx One Daily Essential Tablet] Potassium Chloride 20 meq PO Q12H #12 packet 11/30/19 Unknown Rx chlordiazePOXIDE [Librium] 25 mg PO Q6H #30 capsule 11/30/19 Unknown Rx Ondansetron [Zofran Odt] 4 mg PO Q8HR PRN #20 tab.rapdis 01/09/20 Unknown Rx Allergies Allergy/AdvReac Type Severity Reaction Status Date / Time bee venom protein (honey bee) Allergy Unknown Verified 09/24/19 17:35 metoprolol Allergy Hives Verified 09/28/19 22:06 tramadol Allergy Hives Verified 09/24/19 17:35 ED Review of Systems ROS: Stated complaint: NAUSEA/VOMITING Other details as noted in HPI Comment: All other systems reviewed and negative ED Past Medical Hx - Past Medical History Hx Seizures: Yes (first on 09/25/2019) Hx Psychiatric Treatment: Yes (ETOH abuse) Additional medical history: history of SVT - Surgical History Additional Surgical History: elbow surgeries? BILATERAL CARPAL TUNNEL SURGERY 2017 - Social History Smoking Status: Current Every Day Smoker Substance Use Type: Alcohol - Medications Home Medications: Home Medications Medication Instructions Recorded Confirmed Last Taken Type Doxycycline Hyclate 100 mg PO Q12H #20 tablet. 08/20/19 Unknown Rx Fluconazole (Nf) [Diflucan TAB] 150 mg PO ONCE #1 tablet 08/20/19 Unknown Rx Calcium Carbonate [[id number]] 500 mg PO QDAY #30 tablet 09/24/19 Unknown Rx Naproxen [EC-Naprosyn] 500 mg PO BID PRN #14 tablet. 11/08/19 Unknown Rx Famotidine [Pepcid] 20 mg PO BID #60 tablet 11/30/19 Unknown Rx Magnesium Chloride [Slow-Mag] 2 tab PO DAILY #60 tablet. 11/30/19 Unknown Rx Multivitamin with Folic Acid [[facility]vs 400 mcg PO QDAY #30 tablet 11/30/19 Unknown Rx One Daily Essential Tablet] Potassium Chloride 20 meq PO Q12H #12 packet 11/30/19 Unknown Rx chlordiazePOXIDE [Librium] 25 mg PO Q6H #30 capsule 11/30/19 Unknown Rx Ondansetron [Zofran Odt] 4 mg PO Q8HR PRN #20 tab.rapdis 01/09/20 Unknown Rx ED Physical Exam - General Limitations: No Limitations General appearance: alert, in no apparent distress - Head Head exam: Present: atraumatic, normocephalic - Eye Eye exam: Present: normal appearance - ENT ENT exam: Present: mucous membranes moist - Neck Neck exam: Present: normal inspection - Respiratory Respiratory exam: Present: normal lung sounds bilaterally. Absent: respiratory distress, wheezes, rales, rhonchi - Cardiovascular Cardiovascular Exam: Present: regular rate, normal rhythm, normal heart sounds. Absent: systolic murmur, diastolic murmur, rubs, gallop - GI/Abdominal GI/Abdominal exam: Present: soft, tenderness (epigastric), normal bowel sounds. Absent: distended, guarding, rebound, rigid - Extremities Exam Extremities exam: Present: normal inspection - Back Exam Back exam: Present: normal inspection - Neurological Exam Neurological exam: Present: alert, oriented X3 - Psychiatric Psychiatric exam: Present: normal affect, normal mood - Skin Skin exam: Present: warm, dry, intact, normal color. Absent: rash ED Medical Decision Making - Lab Data Result diagrams: 02/10/20 13:33 02/10/20 13:33 Lab Results 02/10/20 02/10/20 02/10/20 Range/Units 13:20 13:33 13:33 WBC 7.7 (4.5-11.0) K/mm3 RBC 3.80 (3.65-5.03) M/mm3 Hgb 9.5 L (10.1-14.3) gm/dl Hct 32.5 (30.3-42.9) % MCV 86 (79-97) fl MCH 25 L (28-32) pg MCHC 29 L (30-34) % RDW 22.2 H (13.2-15.2) % Plt Count 210 (140-440) K/mm3 Lymph % (Auto) 7.5 L (13.4-35.0) % [place] % (Auto) 7.2 (0.0-7.3) % Eos % (Auto) 0.0 (0.0-4.3) % Baso % (Auto) 0.5 (0.0-1.8) % Lymph # (Auto) 0.6 L (1.2-5.4) K/mm3 [place] # (Auto) 0.6 (0.0-0.8) K/mm3 Eos # (Auto) 0.0 (0.0-0.4) K/mm3 Baso # (Auto) 0.0 (0.0-0.1) K/mm3 Seg Neutrophils % 84.8 H (40.0-70.0) % Seg Neutrophils # 6.5 (1.8-7.7) K/mm3 Sodium 144 (137-145) mmol/L Potassium 4.9 (3.6-5.0) mmol/L Chloride 102.4 (98-107) mmol/L Carbon Dioxide 5 L* (22-30) mmol/L Anion Gap 42 mmol/L BUN 7 (7-17) mg/dL Creatinine 0.8 (0.6-1.2) mg/dL Estimated GFR > 60 ml/min BUN/Creatinine Ratio 9 % Glucose 95 (65-100) mg/dL Calcium 9.3 (8.4-10.2) mg/dL Total Bilirubin 0.60 (0.1-1.2) mg/dL AST 121 H (5-40) units/L ALT 49 (7-56) units/L Alkaline Phosphatase 129 (35-129) units/L Total Protein 7.6 (6.3-8.2) g/dL Albumin 4.5 (3.9-5) g/dL Albumin/Globulin Ratio 1.5 % Lipase 8 L (13-60) units/L HCG, Qual (Negative) Urine Color Yellow (Yellow) Urine Turbidity Clear (Clear) Urine pH 5.0 (5.0-7.0) Ur Specific [place] 1.015 (1.003-1.030) Urine Protein 100 mg/dl (Negative) mg/dL Urine Glucose (UA) Neg (Negative) mg/dL Urine Ketones 80 (Negative) mg/dL Urine Blood Sm (Negative) Urine Nitrite Neg (Negative) Urine Bilirubin Neg (Negative) Urine Urobilinogen 2.0 (<2.0) mg/dL Ur Leukocyte Esterase Neg (Negative) Urine WBC (Auto) 1.0 (0.0-6.0) /HPF Urine RBC (Auto) 3.0 (0.0-6.0) /HPF U Epithel Cells (Auto) 3.0 (0-13.0) /HPF Urine Mucus Few /HPF Plasma/Serum Alcohol (0-0.07) % 02/10/20 02/10/20 Range/Units 13:33 13:33 WBC (4.5-11.0) K/mm3 RBC (3.65-5.03) M/mm3 Hgb (10.1-14.3) gm/dl Hct (30.3-42.9) % MCV (79-97) fl MCH (28-32) pg MCHC (30-34) % RDW (13.2-15.2) % Plt Count (140-440) K/mm3 Lymph % (Auto) (13.4-35.0) % [place] % (Auto) (0.0-7.3) % Eos % (Auto) (0.0-4.3) % Baso % (Auto) (0.0-1.8) % Lymph # (Auto) (1.2-5.4) K/mm3 [place] # (Auto) (0.0-0.8) K/mm3 Eos # (Auto) (0.0-0.4) K/mm3 Baso # (Auto) (0.0-0.1) K/mm3 Seg Neutrophils % (40.0-70.0) % Seg Neutrophils # (1.8-7.7) K/mm3 Sodium (137-145) mmol/L Potassium (3.6-5.0) mmol/L Chloride (98-107) mmol/L Carbon Dioxide (22-30) mmol/L Anion Gap mmol/L BUN (7-17) mg/dL Creatinine (0.6-1.2) mg/dL Estimated GFR ml/min BUN/Creatinine Ratio % Glucose (65-100) mg/dL Calcium (8.4-10.2) mg/dL Total Bilirubin (0.1-1.2) mg/dL AST (5-40) units/L ALT (7-56) units/L Alkaline Phosphatase (35-129) units/L Total Protein (6.3-8.2) g/dL Albumin (3.9-5) g/dL Albumin/Globulin Ratio % Lipase (13-60) units/L HCG, Qual Negative (Negative) Urine Color (Yellow) Urine Turbidity (Clear) Urine pH (5.0-7.0) Ur Specific [place] (1.003-1.030) Urine Protein (Negative) mg/dL Urine Glucose (UA) (Negative) mg/dL Urine Ketones (Negative) mg/dL Urine Blood (Negative) Urine Nitrite (Negative) Urine Bilirubin (Negative) Urine Urobilinogen (<2.0) mg/dL Ur Leukocyte Esterase (Negative) Urine WBC (Auto) (0.0-6.0) /HPF Urine RBC (Auto) (0.0-6.0) /HPF U Epithel Cells (Auto) (0-13.0) /HPF Urine Mucus /HPF Plasma/Serum Alcohol 0.05 (0-0.07) % - Medical Decision Making Patient showing evidence of metabolic acidosis from heavy alcohol abuse and dehydration. Patient was given 2 bags of normal saline on arrival but then switched to D5 normal saline. Patient will be admitted to the hospitalist service. Patient is agreeable to stay in hospital to get better. Critical care attestation.: If time is entered above; I have spent that time in minutes in the direct care of this critically ill patient, excluding procedure time. ED Disposition Clinical Impression: Alcoholic ketoacidosis, Alcohol abuse Disposition: OP ADMIT IP TO THIS HOSP Is pt being admited?: Yes Does the pt Need Aspirin: No Condition: Stable Time of Disposition: 15:49
[2020-02-10 14:24] LABS: Basophils % (Auto) 0.5 % (0.0-1.8); Lymphocytes # (Auto) 0.6 K/mm3 (1.2-5.4); Lymphocytes % (Auto) 7.5 % (13.4-35.0); Mean Corpuscular HGB Conc 29 % (30-34); Mean Corpuscular Volume 86 fl (79-97); Monocytes # (Auto) 0.6 K/mm3 (0.0-0.8); Monocytes % (Auto) 7.2 % (0.0-7.3); Platelet Count 210 K/mm3 (140-440)
[2020-02-10 14:27] LABS: Hematocrit 32.5 % (30.3-42.9); Hemoglobin 9.5 gm/dl (10.1-14.3)
[2020-02-10 14:28] LABS: Red Cell Distribution Width 22.2 % (13.2-15.2)
[2020-02-10 14:50] LABS: Alanine Aminotransferase 49 units/L (7-56); Albumin 4.5 g/dL (3.9-5); BUN/Creatinine Ratio 9; Blood Urea Nitrogen 7 mg/dL (7-17); Calcium 9.3 mg/dL (8.4-10.2); Hemolysis Index 18
[2020-02-10] MEDS ORDERED: D5W/0.9% NACL 1,000 ML IV SCH ×2 (15:00→16:00)
[2020-02-10] MEDS ORDERED: SODIUM BICARB 8.4% 50 MEQ/50 ML SYRINGE IV ONE (15:41)
[2020-02-10] MEDS ORDERED: LORazepam 2 MG/ML VIAL IV PRN ×3 (15:45→23:10)
[2020-02-10] MEDS ORDERED: LORazepam 2 MG/ML VIAL IV ONE (15:45)
[2020-02-10] MEDS: LORazepam 2 MG/ML VIAL IV PRN ×2 (16:02→22:13)
[2020-02-10] MEDS ORDERED: D5W/0.9% NACL 1,000 ML IV ONE (18:08)
[2020-02-10] MEDS ORDERED: HYDROmorphone 1 MG/1 ML INJ IV PRN (20:04)
[2020-02-10] MEDS ORDERED: HYDROmorphone 1 MG/1 ML INJ ONE (20:55)
[2020-02-10] MEDS ORDERED: LORazepam 2 MG/ML VIAL ONE (22:12)
[2020-02-10 23:03] VITALS: BP 111/63
[2020-02-10] MEDS ORDERED: oxyCODONE /ACETAMINOPHEN 5-325MG TAB PO PRN (23:08)
[2020-02-10] MEDS ORDERED: METOCLOPRAMIDE 10 MG/2 ML INJ IV PRN (23:08)
[2020-02-10] MEDS ORDERED: ACETAMINOPHEN 325 MG TAB PO PRN (23:08)
[2020-02-10] MEDS ORDERED: ONDANSETRON 4 MG/2 ML INJ IV PRN (23:08)
[2020-02-10] MEDS ORDERED: PROMETHAZINE 25 MG RECT SUPP PR PRN (23:08)
[2020-02-10] MEDS ORDERED: FAMOTIDINE 20 MG/2 ML INJ IV SCH (23:45)
--- NOTE | 2020-02-11 16:33 | History and Physical Report ---
History of Present Illness Date of examination: 02/10/20 Date of admission: 02/10/20 15:49 Chief complaint: Persistent vomiting since last night EtOH intoxication History of present illness: 39-year-old -[place] female with history of EtOH dependence and seizure disorder comes in for vomiting since last night. Also severely nauseous. Also epigastric discomfort. Patient came here 1 month ago and left home AGAINST MEDICAL ADVICE from the ER. Patient states she has been drinking heavily every night. Epigastric discomfort about 5 on a scale of 1-10. No recent seizures. No fever or chills. Not taking her seizure medications. Past Medical History Seizures: Yes (first on 09/25/2019) Psychiatric Treatment: Yes (ETOH abuse) Additional medical history: history of SVT - Surgical History Additional Surgical History: elbow surgeries? BILATERAL CARPAL TUNNEL SURGERY 2017 - Social History Smoking Status: Current Every Day Smoker Substance Use Type: Alcohol - Medications Home Medications: Home Medications Medication Instructions Recorded Confirmed Last Taken Type Doxycycline Hyclate 100 mg PO Q12H #20 tablet. 08/20/19 Unknown Rx Fluconazole (Nf) [Diflucan TAB] 150 mg PO ONCE #1 tablet 08/20/19 Unknown Rx Calcium Carbonate [[id number]-[id number]-418] 500 mg PO QDAY #30 tablet 09/24/19 Unknown Rx Naproxen [EC-Naprosyn] 500 mg PO BID PRN #14 tablet. 11/08/19 Unknown Rx Famotidine [Pepcid] 20 mg PO BID #60 tablet 11/30/19 Unknown Rx Magnesium Chloride [Slow-Mag] 2 tab PO DAILY #60 tablet. 11/30/19 Unknown Rx Multivitamin with Folic Acid [Cvs 400 mcg PO QDAY #30 tablet 11/30/19 Unknown Rx One Daily Essential Tablet] Potassium Chloride 20 meq PO Q12H #12 packet 11/30/19 Unknown Rx chlordiazePOXIDE [Librium] 25 mg PO Q6H #30 capsule 11/30/19 Unknown Rx Ondansetron [Zofran Odt] 4 mg PO Q8HR PRN #20 tab.rapdis 01/09/20 Unknown Rx Review of Systems ROS: Stated complaint: NAUSEA/VOMITING Other details as noted in HPI Comment: All other systems reviewed and negative Medications and Allergies Allergies Allergy/AdvReac Type Severity Reaction Status Date / Time bee venom protein (honey bee) Allergy Unknown Verified 09/24/19 17:35 metoprolol Allergy Hives Verified 09/28/19 22:06 tramadol Allergy Hives Verified 09/24/19 17:35 Home Medications Medication Instructions Recorded Confirmed Last Taken Type No Known Home Medications [No 02/10/20 02/10/20 Unknown History Reported Home Medications] Exam - Constitutional Vitals: Temp Pulse Resp BP Pulse Ox 98.3 F 116 H 18 111/63 100 02/10/20 22:59 02/10/20 22:59 02/10/20 22:59 02/10/20 22:59 02/10/20 22:59 General appearance: Present: no acute distress, well-nourished - EENT Eyes: Present: PERRL ENT: hearing intact, clear oral mucosa - Neck Neck: Present: supple, normal ROM - Respiratory Respiratory effort: normal Respiratory: bilateral: CTA - Cardiovascular Heart rate: 98 Rhythm: regular Heart Sounds: Present: S1 & S2. Absent: rub, click - Extremities Extremities: pulses symmetrical, No edema Peripheral Pulses: within normal limits - Abdominal General gastrointestinal: Present: soft, tender, non-distended, normal bowel sounds Localized gastrointestinal: tender: diffuse Female genitourinary: Present: normal - Integumentary Integumentary: Present: clear, warm, dry - Musculoskeletal Musculoskeletal: gait normal, strength equal bilaterally - Psychiatric Psychiatric: appropriate mood/affect, intact judgment & insight - Neurologic Neurologic: CNII-XII intact, moves all extremities - Allied Health Allied health notes reviewed: nursing, case management Results - Labs CBC & Chem 7: 02/10/20 13:33 02/10/20 13:33 Labs: Laboratory Last Values WBC 7.7 K/mm3 (4.5-11.0) 02/10/20 13:33 RBC 3.80 M/mm3 (3.65-5.03) 02/10/20 13:33 Hgb 9.5 gm/dl (10.1-14.3) L 02/10/20 13:33 Hct 32.5 % (30.3-42.9) 02/10/20 13:33 MCV 86 fl (79-97) 02/10/20 13:33 MCH 25 pg (28-32) L 02/10/20 13:33 MCHC 29 % (30-34) L 02/10/20 13:33 RDW 22.2 % (13.2-15.2) H 02/10/20 13:33 Plt Count 210 K/mm3 (140-440) 02/10/20 13:33 Lymph % (Auto) 7.5 % (13.4-35.0) L 02/10/20 13:33 [place] % (Auto) 7.2 % (0.0-7.3) 02/10/20 13:33 Eos % (Auto) 0.0 % (0.0-4.3) 02/10/20 13:33 Baso % (Auto) 0.5 % (0.0-1.8) 02/10/20 13:33 Lymph # (Auto) 0.6 K/mm3 (1.2-5.4) L 02/10/20 13:33 [place] # (Auto) 0.6 K/mm3 (0.0-0.8) 02/10/20 13:33 Eos # (Auto) 0.0 K/mm3 (0.0-0.4) 02/10/20 13:33 Baso # (Auto) 0.0 K/mm3 (0.0-0.1) 02/10/20 13:33 Seg Neutrophils % 84.8 % (40.0-70.0) H 02/10/20 13:33 Seg Neutrophils # 6.5 K/mm3 (1.8-7.7) 02/10/20 13:33 Sodium 144 mmol/L (137-145) 02/10/20 13:33 Potassium 4.9 mmol/L (3.6-5.0) 02/10/20 13:33 Chloride 102.4 mmol/L (98-107) 02/10/20 13:33 Carbon Dioxide 5 mmol/L (22-30) L* 02/10/20 13:33 Anion Gap 42 mmol/L 02/10/20 13:33 BUN 7 mg/dL (7-17) 02/10/20 13:33 Creatinine 0.8 mg/dL (0.6-1.2) 02/10/20 13:33 Estimated GFR > 60 ml/min 02/10/20 13:33 BUN/Creatinine Ratio 9 % 02/10/20 13:33 Glucose 95 mg/dL (65-100) 02/10/20 13:33 Calcium 9.3 mg/dL (8.4-10.2) 02/10/20 13:33 Total Bilirubin 0.60 mg/dL (0.1-1.2) 02/10/20 13:33 AST 121 units/L (5-40) H 02/10/20 13:33 ALT 49 units/L (7-56) 02/10/20 13:33 Alkaline Phosphatase 129 units/L (35-129) 02/10/20 13:33 Total Protein 7.6 g/dL (6.3-8.2) 02/10/20 13:33 Albumin 4.5 g/dL (3.9-5) 02/10/20 13:33 Albumin/Globulin Ratio 1.5 % 02/10/20 13:33 Lipase 8 units/L (13-60) L 02/10/20 13:33 HCG, Qual Negative (Negative) 02/10/20 13:33 Urine Color Yellow (Yellow) 02/10/20 13:20 Urine Turbidity Clear (Clear) 02/10/20 13:20 Urine pH 5.0 (5.0-7.0) 02/10/20 13:20 Ur Specific [place] 1.015 (1.003-1.030) 02/10/20 13:20 Urine Protein 100 mg/dl mg/dL (Negative) 02/10/20 13:20 Urine Glucose (UA) Neg mg/dL (Negative) 02/10/20 13:20 Urine Ketones 80 mg/dL (Negative) 02/10/20 13:20 Urine Blood Sm (Negative) 02/10/20 13:20 Urine Nitrite Neg (Negative) 02/10/20 13:20 Urine Bilirubin Neg (Negative) 02/10/20 13:20 Urine Urobilinogen 2.0 mg/dL (<2.0) 02/10/20 13:20 Ur Leukocyte Esterase Neg (Negative) 02/10/20 13:20 Urine WBC (Auto) 1.0 /HPF (0.0-6.0) 02/10/20 13:20 Urine RBC (Auto) 3.0 /HPF (0.0-6.0) 02/10/20 13:20 U Epithel Cells (Auto) 3.0 /HPF (0-13.0) 02/10/20 13:20 Urine Mucus Few /HPF 02/10/20 13:20 Plasma/Serum Alcohol 0.05 % (0-0.07) 02/10/20 13:33 Assessment and Plan Advance Directives: Yes (Full code) VTE prophylaxis?: Chemical (Full code) Plan of care discussed with patient/family: Yes - Patient Problems (1) Alcoholic ketoacidosis Status: Acute Plan to address problem: IV normal saline IV bicarb if necessary IV Zofran every 3 as needed IV Reglan every 6 as needed CIWA protocol (2) EtOH dependence Status: Chronic Qualifiers: Substance use status: uncomplicated Qualified Code(s): F10.20 - Alcohol dependence, uncomplicated Plan to address problem: Patient counseled Patient on CIWA protocol (3) Seizure disorder Status: Chronic Plan to address problem: Patient not taking any seizure medications We will discuss with her regarding starting Keppra (4) DVT prophylaxis Status: Acute Plan to address problem: On heparin and GI prophylaxis
--- NOTE | 2020-02-11 16:38 | Event Note ---
Date: 02/11/20 Discharge summary dictated Seeing the reports Patient signed out AMA around midnight
--- NOTE | 2020-02-11 17:36 | Discharge Summary ---
HOSPITAL COURSE: The patient was admitted on 02/10/2020 for ETOH dependence and severe epigastric pain and persistent nausea, vomiting of 1-day duration. The patient was started on IV fluids, IV Pepcid/Protonix and IV pain medication. The patient was also started on CIWA protocol for ETOH dependence and withdrawal symptoms. The patient was doing well, but suddenly the patient decides that she wants to go against medical advice and signed out against medical advice at 0020 hours around midnight last night. DISCHARGE DIAGNOSES: 1. Alcoholic ketoacidosis. 2. ETOH dependence. 3. Metabolic acidosis. 4. Anemia. 5. Mild transaminitis. No prescription was given because the patient signed out AMA. JOB# [id number] LEVON/SANDHYA
== END 2020-02-11 00:03 | disposition left against medical advice (07) ==
LOC: ED 13:01 → 4A 15:49
PROVIDERS: ADMIT Internal Medicine; ATTEND Internal Medicine
DX: E87.2 Acidosis (principal); R11.2 Nausea with vomiting, unspecified; G40.909 Epilepsy, unspecified, not intractable, without status epilepticus; D64.9 Anemia, unspecified; R74.0 Nonspecific elevation of levels of transaminase and lactic acid dehydrogenase [LDH]; F10.20 Alcohol dependence, uncomplicated; F17.200 Nicotine dependence, unspecified, uncomplicated; Z79.899 Other long term (current) drug therapy; Z88.6 Allergy status to analgesic agent; Z88.8 Allergy status to other drugs, medicaments and biological substances; Z91.030 Bee allergy status
CPT/HCPCS: 36415; 80053; 81001; 83690; 84703; 85025; 96361; 96372; 96374; 96375; 96376; 99284; G0378; J0500; J1170; J2060; J2405; J7030; J7042; 80320; G0480

== ENCOUNTER 2020-02-22 15:49 | Emergency (ER) | payer SELFPAY | END 2020-02-22 15:50 | disposition left against medical advice (07) | LOC: ED 15:49 | DX: T14.8XXA Other injury of unspecified body region, initial encounter (principal); Z53.21 Procedure and treatment not carried out due to patient leaving prior to being seen by health care provider ==

== ENCOUNTER 2020-02-29 20:38 | Emergency (ER) | payer SELFPAY ==
[2020-02-29 21:55] LABS: Basophils # (Auto) 0.1 K/mm3 (0.0-0.1); Basophils % (Auto) 1.9 % (0.0-1.8); Eosinophils % (Auto) 0.1 % (0.0-4.3); Lymphocytes # (Auto) 1.1 K/mm3 (1.2-5.4); Lymphocytes % (Auto) 23.9 % (13.4-35.0); Mean Corpuscular HGB Conc 29 % (30-34); Mean Corpuscular Volume 85 fl (79-97); Monocytes # (Auto) 0.4 K/mm3 (0.0-0.8); Monocytes % (Auto) 8.1 % (0.0-7.3); Platelet Count 239 K/mm3 (140-440); Red Blood Count 4.02 M/mm3 (3.65-5.03)
[2020-02-29 22:00] LABS: Alanine Aminotransferase 52 units/L (7-56); Albumin 4.6 g/dL (3.9-5); Blood Urea Nitrogen 8 mg/dL (7-17); Calcium 9.3 mg/dL (8.4-10.2); Hemolysis Index 20
[2020-02-29 22:01] LABS: Hematocrit 34.1 % (30.3-42.9); Red Cell Distribution Width 21.7 % (13.2-15.2)
[2020-02-29 22:04] LABS: BUN/Creatinine Ratio 11
[2020-02-29 22:35] LABS: Bilirubin,Urine NEG (Negative); Blood,Urine SM (Negative); Color,Urine Yellow (Yellow); Mucus,Urine FEW /HPF; Urobilinogen,Urine < 2.0 mg/dL (<2.0)
[2020-03-01] MEDS ORDERED: SODIUM CHLORIDE 0.9% 1000 ML 1,000 ML IV ONE (00:13)
[2020-03-01] MEDS ORDERED: ONDANSETRON 4 MG/2 ML INJ IV ONE (00:13)
[2020-03-01] MEDS ORDERED: DICYCLOMINE 20 MG/2 ML INJ IM ONE (00:13)
--- NOTE | 2020-03-01 00:45 | Emergency Department Report ---
ED N/V/D HPI - General Chief complaint: Abdominal Pain Stated complaint: NAUSEA AND VOMITING Time Seen by Provider: 03/01/20 00:09 Source: EMS Mode of arrival: Ambulatory Limitations: No Limitations - History of Present Illness Initial comments: pt is a 39 y/o aaf with hx of ETOH abuse who presents for LUQ abd pain cramping and nausea and vomiting x 1 week. pt marly ever or chlls, there are no relieving or exacerbating factors. MD complaint: nausea, vomiting, abdominal pain (abdominal cramping ) - Related Data Previous Rx's Medication Instructions Recorded Last Taken Type Dicyclomine [Bentyl] 10 mg PO QID PRN #30 capsule 03/01/20 Unknown Rx Ibuprofen [Motrin 800 MG tab] 800 mg PO Q8HR PRN #30 tablet 03/01/20 Unknown Rx Ondansetron [Zofran Odt] 4 mg PO Q8HR PRN #12 tab.rapdis 03/01/20 Unknown Rx Allergies Allergy/AdvReac Type Severity Reaction Status Date / Time bee venom protein (honey bee) Allergy Unknown Verified 09/24/19 17:35 metoprolol Allergy Hives Verified 09/28/19 22:06 tramadol Allergy Hives Verified 09/24/19 17:35 ED Review of Systems ROS: Stated complaint: NAUSEA AND VOMITING Other details as noted in HPI Constitutional: denies: chills, fever Eyes: denies: eye pain, eye discharge, vision change ENT: denies: ear pain, throat pain Respiratory: denies: cough, shortness of breath, wheezing Cardiovascular: denies: chest pain, palpitations, paroxysmal nocturnal dyspnea Endocrine: no symptoms reported Gastrointestinal: abdominal pain, nausea, vomiting. denies: diarrhea, constipation, hematemesis, melena Genitourinary: denies: urgency, dysuria, frequency, hematuria, discharge Musculoskeletal: denies: back pain, joint swelling, arthralgia Skin: denies: rash, lesions Neurological: denies: headache, weakness, paresthesias Psychiatric: denies: anxiety, depression Hematological/Lymphatic: denies: easy bleeding, easy bruising ED Past Medical Hx - Past Medical History Hx Seizures: Yes (first on 09/25/2019) Hx Psychiatric Treatment: Yes (ETOH abuse) Additional medical history: history of SVT - Surgical History Additional Surgical History: elbow surgeries? BILATERAL CARPAL TUNNEL SURGERY 2017 - Social History Smoking Status: Current Every Day Smoker Substance Use Type: Alcohol - Medications Home Medications: Home Medications Medication Instructions Recorded Confirmed Last Taken Type Dicyclomine [Bentyl] 10 mg PO QID PRN #30 capsule 03/01/20 Unknown Rx Ibuprofen [Motrin 800 MG tab] 800 mg PO Q8HR PRN #30 tablet 03/01/20 Unknown Rx Ondansetron [Zofran Odt] 4 mg PO Q8HR PRN #12 tab.rapdis 03/01/20 Unknown Rx ED Physical Exam - General Limitations: No Limitations General appearance: alert, in no apparent distress - Head Head exam: Present: normocephalic, normal inspection - Eye Eye exam: Present: normal appearance, PERRL, EOMI Pupils: Present: normal accommodation - ENT ENT exam: Present: normal orophraynx, mucous membranes moist - Neck Neck exam: Present: normal inspection, full ROM. Absent: tenderness - Respiratory Respiratory exam: Present: normal lung sounds bilaterally. Absent: respiratory distress, wheezes, chest wall tenderness - Cardiovascular Cardiovascular Exam: Present: regular rate, normal rhythm, normal heart sounds. Absent: systolic murmur, diastolic murmur, rubs, gallop - GI/Abdominal GI/Abdominal exam: Present: soft, normal bowel sounds. Absent: distended, tenderness, guarding, rebound, rigid, bruit, hernia - External exam: Present: normal external exam - Extremities Exam Extremities exam: Present: normal inspection, full ROM, normal capillary refill. Absent: tenderness, pedal edema - Back Exam Back exam: Present: normal inspection, full ROM. Absent: tenderness, CVA tenderness (R), CVA tenderness (L), vertebral tenderness - Neurological Exam Neurological exam: Present: alert, oriented X3, CN II-XII intact, normal gait - Psychiatric Psychiatric exam: Present: normal affect, normal mood - Skin Skin exam: Present: warm, dry, intact, normal color. Absent: rash ED Medical Decision Making - Lab Data Result diagrams: 02/29/20 21:20 02/29/20 21:20 Labs 02/29/20 02/29/20 02/29/20 21:20 21:20 21:20 WBC 4.7 RBC 4.02 Hgb 10.0 L Hct 34.1 MCV 85 MCH 25 L MCHC 29 L RDW 21.7 H Plt Count 239 Lymph % (Auto) 23.9 [place] % (Auto) 8.1 H Eos % (Auto) 0.1 Baso % (Auto) 1.9 H Lymph # (Auto) 1.1 L [place] # (Auto) 0.4 Eos # (Auto) 0.0 Baso # (Auto) 0.1 Seg Neutrophils % 66.0 Seg Neutrophils # 3.1 Sodium 141 Potassium 3.7 Chloride 93.3 L Carbon Dioxide 12 L Anion Gap 39 BUN 8 Creatinine 0.7 Estimated GFR > 60 BUN/Creatinine Ratio 11 Glucose 88 Calcium 9.3 Total Bilirubin 0.50 AST 126 H ALT 52 Alkaline Phosphatase 141 H Total Protein 7.5 Albumin 4.6 Albumin/Globulin Ratio 1.6 Lipase HCG, Qual Negative Urine Color Urine Turbidity Urine pH Ur Specific [place] Urine Protein Urine Glucose (UA) Urine Ketones Urine Blood Urine Nitrite Urine Bilirubin Urine Urobilinogen Ur Leukocyte Esterase Urine WBC (Auto) Urine RBC (Auto) U Epithel Cells (Auto) Urine Mucus 02/29/20 03/01/20 Unknown Unknown WBC RBC Hgb Hct MCV MCH MCHC RDW Plt Count Lymph % (Auto) [place] % (Auto) Eos % (Auto) Baso % (Auto) Lymph # (Auto) [place] # (Auto) Eos # (Auto) Baso # (Auto) Seg Neutrophils % Seg Neutrophils # Sodium Potassium Chloride Carbon Dioxide Anion Gap BUN Creatinine Estimated GFR BUN/Creatinine Ratio Glucose Calcium Total Bilirubin AST ALT Alkaline Phosphatase Total Protein Albumin Albumin/Globulin Ratio Lipase 20 HCG, Qual Urine Color Yellow Urine Turbidity Clear Urine pH 6.0 Ur Specific [place] 1.018 Urine Protein 30 mg/dl Urine Glucose (UA) Neg Urine Ketones 80 Urine Blood Sm Urine Nitrite Neg Urine Bilirubin Neg Urine Urobilinogen < 2.0 Ur Leukocyte Esterase Neg Urine WBC (Auto) 2.0 Urine RBC (Auto) 3.0 U Epithel Cells (Auto) 2.0 Urine Mucus Few - Medical Decision Making labs noted for AST: 129, and lipase :20 , ua : normal, pt states she feels better after medications given in ed. pt is tolerating po intake, there is no fever or chills, there is no point tenderness. plan: zofran prn, nsaids prn, hydrate as directed, return to emergency if symptoms worsen. pt verbalized agreement and understanding of discharge plan. Critical care attestation.: If time is entered above; I have spent that time in minutes in the direct care of this critically ill patient, excluding procedure time. ED Disposition Clinical Impression: Substance abuse, Alcohol abuse Nausea and vomiting Qualifiers: Vomiting type: unspecified Vomiting Intractability: non-intractable Qualified Code(s): R11.2 - Nausea with vomiting, unspecified Disposition: TO HOME OR SELFCARE Is pt being admited?: No Does the pt Need Aspirin: No Condition: Stable Instructions: Abdominal Pain (ED), Acute Nausea and Vomiting (ED), Abuse of Alcohol (ED) Prescriptions: Dicyclomine [Bentyl] 10 mg PO QID PRN #30 capsule PRN Reason: abdominal spasm Ibuprofen [Motrin 800 MG tab] 800 mg PO Q8HR PRN #30 tablet PRN Reason: Pain , Severe (7-10) Ondansetron [Zofran Odt] 4 mg PO Q8HR PRN #12 tab.rapdis PRN Reason: Nausea Referrals: BRADEN CHAUHAN MD [Staff Physician] - 3-5 Days Forms: Work/School Release Form(ED) Time of Disposition: 00:59
[2020-03-01] MEDS ORDERED: FAMOTIDINE 20 MG TAB PO ONE (02:02)
[2020-03-01] MEDS ORDERED: ONDANSETRON 4 MG ODT TAB PO ONE (02:02)
[2020-03-01] MEDS ORDERED: ONDANSETRON 4 MG ODT TAB ONE (02:02)
[2020-03-01 02:38] VITALS: BP 122/72
== END 2020-03-01 02:41 | disposition home or self-care (01) ==
LOC: ED 20:38
DX: F10.10 Alcohol abuse, uncomplicated (principal); R11.2 Nausea with vomiting, unspecified; F19.10 Other psychoactive substance abuse, uncomplicated; F17.200 Nicotine dependence, unspecified, uncomplicated; Z79.899 Other long term (current) drug therapy; Z88.8 Allergy status to other drugs, medicaments and biological substances; Z91.030 Bee allergy status; Z86.73 Personal history of transient ischemic attack (TIA), and cerebral infarction without residual deficits; Z98.890 Other specified postprocedural states
CPT/HCPCS: 36415; 80053; 81001; 83690; 84703; 85025; 96372; 99283; J0500; Q0162

== ENCOUNTER 2020-03-18 03:50 | Emergency (ER) | payer SELFPAY ==
[2020-03-18 04:33] VITALS: BP 137/93
[2020-03-18 07:53] LABS: HCG Qualitative,Urine Negative (Negative)
== END 2020-03-18 07:33 | disposition left against medical advice (07) ==
LOC: ED 03:50
DX: O26.892 Other specified pregnancy related conditions, second trimester (principal); M79.605 Pain in left leg; M79.604 Pain in right leg; Z3A.15 15 weeks gestation of pregnancy; Z53.21 Procedure and treatment not carried out due to patient leaving prior to being seen by health care provider; W07.XXXA Fall from chair, initial encounter; Y93.89 Activity, other specified; Y92.89 Other specified places as the place of occurrence of the external cause; Y99.8 Other external cause status
CPT/HCPCS: 81025

== ENCOUNTER 2020-04-01 17:51 | Emergency (ER) | payer SELFPAY ==
[2020-04-01 17:58] VITALS: BP 145/73
[2020-04-01 18:49] LABS: Basophils % (Auto) 1.1 % (0.0-1.8); Eosinophils % (Auto) 0.7 % (0.0-4.3); Lymphocytes # (Auto) 1.8 K/mm3 (1.2-5.4); Lymphocytes % (Auto) 41.6 % (13.4-35.0); Mean Corpuscular HGB Conc 30 % (30-34); Mean Corpuscular Volume 84 fl (79-97); Monocytes # (Auto) 0.3 K/mm3 (0.0-0.8); Monocytes % (Auto) 7.7 % (0.0-7.3); Platelet Count 253 K/mm3 (140-440); Red Blood Count 4.19 M/mm3 (3.65-5.03)
[2020-04-01 18:53] LABS: Hematocrit 35.4 % (30.3-42.9); Hemoglobin 10.5 gm/dl (10.1-14.3); Red Cell Distribution Width 23.8 % (13.2-15.2)
[2020-04-01 19:10] LABS: Alanine Aminotransferase 83 units/L (7-56); Albumin 4.3 g/dL (3.9-5); Blood Urea Nitrogen 6 mg/dL (7-17); Calcium 8.8 mg/dL (8.4-10.2); Hemolysis Index 5
[2020-04-01 19:15] LABS: BUN/Creatinine Ratio 12
[2020-04-01] MEDS ORDERED: SODIUM CHLORIDE 0.9% 1000 ML 1,000 ML IV ONE (19:46)
[2020-04-01] MEDS ORDERED: FAMOTIDINE 20 MG/2 ML INJ IV ONE (19:46)
[2020-04-01] MEDS ORDERED: DICYCLOMINE 20 MG/2 ML INJ IM ONE (19:46)
[2020-04-01] MEDS ORDERED: ONDANSETRON 4 MG/2 ML INJ IV ONE (19:47)
--- NOTE | 2020-04-01 22:08 | Emergency Department Report ---
ED Abdominal Pain HPI - General Chief Complaint: Abdominal Pain Stated Complaint: 20 WEEKS PREG/PORFIRIO Source: patient Mode of arrival: Ambulatory Limitations: No Limitations - History of Present Illness Initial Comments: Patient is a A0 40-year-old -German female with a history of chronic alcohol abuse and seizures who presents to the ED with complaint of acute onset persistent diffuse abdominal pain, nausea and vomiting and vaginal bleeding for the last 12 hours. Patient states that she suspects that she is 15 to 17 weeks gestation. Patient admits to having been drinking a lot of alcohol in the last 12 hours despite nausea and vomiting and abdominal pain. Patient denies fever, chills, dizziness, syncope, chest pain or shortness of breath, dysuria, urinary frequency and urgency, diarrhea, vaginal discharge, back pain, change in vision, seizures, cough, head or neck injury or fall. MD Complaint: abdominal pain, other (nausea and vomiting; vaginal bleeding; alcohol intoxication) -: Sudden, hour(s) (12) Location: diffuse Radiation: none Migration to: no migration Severity: severe Severity scale (0 -10): 8 Quality: cramping, aching, sharp Consistency: constant Improves With: nothing Worsens With: nothing Context: other (Alcohol intoxication) Associated Symptoms: denies other symptoms, nausea, vomiting. denies: diarrhea, fever, chills, constipation, dysuria, hematemesis, hematochezia, melena, hematuria, anorexia, syncope - Related Data LMP (females 10-50): this week Previous Rx's Medication Instructions Recorded Last Taken Type Dicyclomine [Bentyl] 10 mg PO QID PRN #30 capsule 03/01/20 Unknown Rx Ibuprofen [Motrin 800 MG tab] 800 mg PO Q8HR PRN #30 tablet 03/01/20 Unknown Rx Ondansetron [Zofran Odt] 4 mg PO Q8HR PRN #12 tab.rapdis 03/01/20 Unknown Rx Allergies Allergy/AdvReac Type Severity Reaction Status Date / Time bee venom protein (honey bee) Allergy Unknown Verified 09/24/19 17:35 metoprolol Allergy Hives Verified 09/28/19 22:06 tramadol Allergy Hives Verified 09/24/19 17:35 ED Review of Systems ROS: Stated complaint: 20 WEEKS PREG/PORFIRIO Other details as noted in HPI Constitutional: malaise. denies: chills, fever Eyes: denies: eye pain, eye discharge, vision change ENT: denies: ear pain, throat pain Respiratory: denies: cough, shortness of breath, wheezing Cardiovascular: denies: chest pain, palpitations Endocrine: no symptoms reported Gastrointestinal: abdominal pain, nausea, vomiting. denies: diarrhea Genitourinary: abnormal menses (Vaginal bleeding). denies: urgency, dysuria, discharge Musculoskeletal: denies: back pain, joint swelling, arthralgia Skin: denies: rash, lesions Neurological: denies: headache, weakness, paresthesias Psychiatric: anxiety, other (Alcohol intoxication). denies: depression, auditory hallucinations, visual hallucinations, homicidal thoughts, suicidal thoughts Hematological/Lymphatic: denies: easy bleeding, easy bruising ED Past Medical Hx - Past Medical History Previous Medical History?: No Hx Seizures: Yes (first on 09/25/2019) Hx Psychiatric Treatment: Yes (ETOH abuse) Additional medical history: history of SVT - Surgical History Additional Surgical History: elbow surgeries? BILATERAL CARPAL TUNNEL SURGERY 2016 - Social History Smoking Status: Current Every Day Smoker Substance Use Type: Alcohol - Medications Home Medications: Home Medications Medication Instructions Recorded Confirmed Last Taken Type Dicyclomine [Bentyl] 10 mg PO QID PRN #30 capsule 03/01/20 Unknown Rx Ibuprofen [Motrin 800 MG tab] 800 mg PO Q8HR PRN #30 tablet 03/01/20 Unknown Rx Ondansetron [Zofran Odt] 4 mg PO Q8HR PRN #12 tab.rapdis 03/01/20 Unknown Rx ED Physical Exam - General Limitations: No Limitations General appearance: alert, in no apparent distress, anxious, other (Intoxicated on alcohol) - Head Head exam: Present: atraumatic, normocephalic, normal inspection - Eye Eye exam: Present: normal appearance, PERRL, EOMI Pupils: Present: normal accommodation - ENT ENT exam: Present: normal exam, normal orophraynx, mucous membranes moist, TM's normal bilaterally, normal external ear exam - Neck Neck exam: Present: normal inspection, full ROM - Respiratory Respiratory exam: Present: normal lung sounds bilaterally. Absent: respiratory distress, wheezes, rales, rhonchi, chest wall tenderness, accessory muscle use, decreased breath sounds, prolonged expiratory - Cardiovascular Cardiovascular Exam: Present: normal rhythm, tachycardia, normal heart sounds. Absent: systolic murmur, diastolic murmur, rubs, gallop - GI/Abdominal GI/Abdominal exam: Present: soft, normal bowel sounds. Absent: tenderness, guarding, rebound, hyperactive bowel sounds, hypoactive bowel sounds - Bi-manual exam: Present: other (Pelvic exam deferred patient intoxicated on alcohol) - Extremities Exam Extremities exam: Present: normal inspection, full ROM, normal capillary refill - Back Exam Back exam: Present: normal inspection, full ROM. Absent: tenderness, CVA tenderness (R), CVA tenderness (L), muscle spasm, paraspinal tenderness - Neurological Exam Neurological exam: Present: alert, oriented X3, CN II-XII intact, normal gait, reflexes normal - Psychiatric Psychiatric exam: Present: normal affect, anxious, flat affect, other (Intoxicated on alcohol). Absent: homicidal ideation, suicidal ideation - Skin Skin exam: Present: warm, dry, intact, normal color. Absent: rash ED Course Vital Signs 04/01/20 17:57 Temperature 98.1 F Pulse Rate 111 H Respiratory 20 Rate Blood Pressure 145/73 [Left] O2 Sat by Pulse 98 Oximetry ED Medical Decision Making - Lab Data Result diagrams: 04/01/20 18:28 04/01/20 18:28 - Medical Decision Making This is a A0 40-year-old -German female with a history of chronic alcohol abuse and seizures who presents to the ED with complaint of acute onset persistent diffuse abdominal pain, nausea and vomiting and vaginal bleeding for the last 12 hours. Patient states that she suspects that she is 15 to 17 weeks gestation. Patient admits to having been drinking a lot of alcohol in the last 12 hours despite nausea and vomiting and abdominal pain. In the ED, patient is alert and oriented x3 and is not in distress, resting comfortably while eating chips in the room but appears intoxicated on alcohol. Lab test results were reviewed and are all nonactionable except for AST of 302, ALT of 83 and alk phos of 169. The rest of the lab test results were nonactionable. Patient decided to leave the ED AMA before any treatments could be initiated stating that she was free to go anywhere she wants and not necessarily in the ED. - Differential Diagnosis Alcohol intoxication, alcoholic gastritis, dehydration, UTI, dysmenorrhea Critical care attestation.: If time is entered above; I have spent that time in minutes in the direct care of this critically ill patient, excluding procedure time. ED Disposition Clinical Impression: Chronic alcohol abuse, Nausea and vomiting in adult patient Abdominal pain Qualifiers: Abdominal location: generalized Qualified Code(s): R10.84 - Generalized abdominal pain Disposition: - LEFT AGAINST MED ADVICE Is pt being admited?: No Does the pt Need Aspirin: No Condition: Undetermined Instructions: Abdominal Pain (ED), Alcohol Intoxication, [id number], Abdominal Pain, Adult, [id number], Nausea and Vomiting, Adult, [id number] Referrals: [facility], [facility] MD JU [Primary Care Provider] - 3-5 Days Time of Disposition: 20:10 Print Language: YORUBA
== END 2020-04-01 20:55 | disposition left against medical advice (07) ==
LOC: ED 17:51
DX: O21.8 Other vomiting complicating pregnancy (principal); O26.892 Other specified pregnancy related conditions, second trimester; O99.312 Alcohol use complicating pregnancy, second trimester; O99.332 Smoking (tobacco) complicating pregnancy, second trimester; R10.84 Generalized abdominal pain; Z79.899 Other long term (current) drug therapy; Z88.8 Allergy status to other drugs, medicaments and biological substances; Z91.09 Other allergy status, other than to drugs and biological substances; Z3A.20 20 weeks gestation of pregnancy; Z98.890 Other specified postprocedural states; Z86.69 Personal history of other diseases of the nervous system and sense organs
CPT/HCPCS: 36415; 80053; 83690; 84702; 85025; 86850; 86900; 86901; J0500; J2405; J7030

== ENCOUNTER 2020-04-03 14:08 | Emergency (ER) | payer SELFPAY ==
[2020-04-03] MEDS ORDERED: ONDANSETRON 4 MG/2 ML INJ IV ONE ×2 (16:03→16:28)
[2020-04-03] MEDS ORDERED: ONDANSETRON 4 MG ODT TAB PO/SL ONE (16:03)
[2020-04-03] MEDS ORDERED: SODIUM CHLORIDE 0.9% 1000 ML 1,000 ML IV ONE (16:03)
[2020-04-03] MEDS ORDERED: METOCLOPRAMIDE 10 MG/2 ML INJ IV ONE (16:03)
[2020-04-03] MEDS ORDERED: diphenhydrAMINE 50 MG/ML VIAL IV STA (16:04)
[2020-04-03 16:05] VITALS: BP 138/84
[2020-04-03 17:00] LABS: Basophils % (Auto) 0.4 % (0.0-1.8); Eosinophils % (Auto) 0.1 % (0.0-4.3); Lymphocytes # (Auto) 0.8 K/mm3 (1.2-5.4); Lymphocytes % (Auto) 11.5 % (13.4-35.0); Mean Corpuscular HGB Conc 30 % (30-34); Mean Corpuscular Volume 85 fl (79-97); Monocytes # (Auto) 0.7 K/mm3 (0.0-0.8); Monocytes % (Auto) 10.2 % (0.0-7.3); Platelet Count 226 K/mm3 (140-440)
[2020-04-03 17:01] LABS: Hematocrit 33.3 % (30.3-42.9); Hemoglobin 9.9 gm/dl (10.1-14.3); Red Cell Distribution Width 23.7 % (13.2-15.2)
[2020-04-03 17:14] LABS: Alanine Aminotransferase 90 units/L (7-56); Albumin 4.3 g/dL (3.9-5); BUN/Creatinine Ratio 6; Bilirubin,Direct 0.7 mg/dL (0-0.2); Blood Urea Nitrogen 5 mg/dL (7-17); Calcium 8.9 mg/dL (8.4-10.2); Hemolysis Index 13
== END 2020-04-03 17:30 | disposition left against medical advice (07) ==
LOC: ED 14:08
DX: N93.9 Abnormal uterine and vaginal bleeding, unspecified (principal); Z53.21 Procedure and treatment not carried out due to patient leaving prior to being seen by health care provider
CPT/HCPCS: 36415; 80048; 80076; 83690; 84703; 85025; J2405; J7030

== ENCOUNTER 2020-04-19 16:10 | Emergency (ER) | payer SELFPAY ==
[2020-04-19] MEDS ORDERED: chlordiazePOXIDE 25 MG CAP PO PRN (16:50)
--- NOTE | 2020-04-19 16:54 | Emergency Department Report ---
HPI - General Chief Complaint: Psych Time Seen by Provider: 04/19/20 16:26 - HPI HPI: This is a 40-year-old -[place] female who presents to the emergency department via EMS from home with a complaint of depression and suicidal ideations. The patient has no particular plan as to how she would harm herself. She has been feeling depressed over the past 2 weeks since she had a miscarriage. The patient was 4 months at the time of the miscarriage. She does have 4 live children. She denies any past medical history. She denies any diagnosed history of any previous depression or any other psychiatric conditions. She has not taken anything for her symptoms prior to presentation. She denies any auditory or visual hallucinations, or any homicidal ideations. The patient does admit to daily alcohol use and alcohol dependence. It does appear that she has had some issues with alcohol withdrawal in the past including seizures. The patient last drank alcohol about 6 hours ago. She denies any illicit drug use. ED Past Medical Hx - Past Medical History Previous Medical History?: Yes Hx Seizures: Yes (first on 09/25/2019) Hx Psychiatric Treatment: Yes (ETOH abuse) Additional medical history: history of SVT - Surgical History Past Surgical History?: Yes Additional Surgical History: elbow surgeries? BILATERAL CARPAL TUNNEL SURGERY 2016 - Social History Smoking Status: Current Every Day Smoker Substance Use Type: Alcohol - Medications Home Medications: Home Medications Medication Instructions Recorded Confirmed Last Taken Type Dicyclomine [Bentyl] 10 mg PO QID PRN #30 capsule 03/01/20 Unknown Rx Ibuprofen [Motrin 800 MG tab] 800 mg PO Q8HR PRN #30 tablet 03/01/20 Unknown Rx Ondansetron [Zofran Odt] 4 mg PO Q8HR PRN #12 tab.rapdis 03/01/20 Unknown Rx ED Review of Systems ROS: Stated complaint: SI Other details as noted in HPI Comment: All other systems reviewed and negative Constitutional: denies: chills, fever Eyes: denies: eye pain, vision change Respiratory: denies: cough, shortness of breath Cardiovascular: denies: chest pain, palpitations Gastrointestinal: denies: abdominal pain, vomiting Musculoskeletal: denies: back pain, arthralgia Neurological: denies: headache, weakness Psychiatric: depression, suicidal thoughts. denies: auditory hallucinations, visual hallucinations, homicidal thoughts Physical Exam - Physical Exam Vital Signs: Vital Signs 04/19/20 16:25 Temperature 98.3 F Pulse Rate 85 Respiratory 14 Rate Blood Pressure 126/53 [Left] O2 Sat by Pulse 100 Oximetry Physical Exam: GENERAL: The patient is well-developed well-nourished. HENT: Normocephalic. Atraumatic. Patient has moist mucous membranes. EYES: Extraocular motions are intact. NECK: Supple. Trachea is midline. CHEST/LUNGS: Clear to auscultation. There is no respiratory distress noted. HEART/CARDIOVASCULAR: Regular. There is no tachycardia. There is no murmur. ABDOMEN: Abdomen is soft, nontender. Patient has normal bowel sounds. SKIN: Skin is warm and dry. NEURO: The patient is awake, alert, and cooperative. The patient has no focal neurologic deficits. Normal speech. MUSCULOSKELETAL: There is no tenderness or deformity. There is no limitation range of motion. PSYCH: Patient is tearful. ED Course Vital Signs 04/19/20 16:25 Temperature 98.3 F Pulse Rate 85 Respiratory 14 Rate Blood Pressure 126/53 [Left] O2 Sat by Pulse 100 Oximetry - Reevaluation(s) Reevaluation #1: 04/20/20 01:30 Lab Results 04/19/20 04/19/20 04/19/20 Range/Units 16:36 16:36 16:36 WBC 3.7 L (4.5-11.0) K/mm3 RBC 3.62 L (3.65-5.03) M/mm3 Hgb 9.1 L (10.1-14.3) gm/dl Hct 29.3 L (30.3-42.9) % MCV 81 (79-97) fl MCH 25 L (28-32) pg MCHC 31 (30-34) % RDW 19.9 H (13.2-15.2) % Plt Count 374 (140-440) K/mm3 Eos % (Auto) Stock Order Lister Baso % (Auto) Stock Order Lister Add Manual Diff Complete Total Counted 100 Seg Neutrophils % Stock Order Lister Seg Neuts % (Manual) 51.0 (40.0-70.0) % Band Neutrophils % 0 % Lymphocytes % (Manual) 41.0 H (13.4-35.0) % Reactive Lymphs % (Man) 0 % Monocytes % (Manual) 4.0 (0.0-7.3) % Eosinophils % (Manual) 1.0 (0.0-4.3) % Basophils % (Manual) 3.0 H (0.0-1.8) % Metamyelocytes % 0 % Myelocytes % 0 % Promyelocytes % 0 % Blast Cells % 0 % Nucleated RBC % Not Reportable Seg Neutrophils # Man 1.9 (1.8-7.7) K/mm3 Band Neutrophils # 0.0 K/mm3 Lymphocytes # (Manual) 1.5 (1.2-5.4) K/mm3 Abs React Lymphs (Man) 0.0 K/mm3 Monocytes # (Manual) 0.1 (0.0-0.8) K/mm3 Eosinophils # (Manual) 0.0 (0.0-0.4) K/mm3 Basophils # (Manual) 0.1 (0.0-0.1) K/mm3 Metamyelocytes # 0.0 K/mm3 Myelocytes # 0.0 K/mm3 Promyelocytes # 0.0 K/mm3 Blast Cells # 0.0 K/mm3 WBC Morphology Not Reportable Hypersegmented Neuts Not Reportable Hyposegmented Neuts Not Reportable Hypogranular Neuts Not Reportable Smudge Cells Not Reportable Toxic Granulation Not Reportable Toxic Vacuolation Not Reportable Dohle Bodies Not Reportable Pelger-Huet Anomaly Not Reportable Christine Rods Not Reportable Platelet Estimate Not Reportable Clumped Platelets Few Plt Clumps, EDTA Not Reportable Large Platelets Not Reportable Giant Platelets Not Reportable Platelet Satelliting Not Reportable Plt Morphology Comment Not Reportable RBC Morphology Not Reportable Dimorphic RBCs Not Reportable Polychromasia Not Reportable Hypochromasia 1+ Poikilocytosis Not Reportable Anisocytosis 1+ Microcytosis Few Macrocytosis Not Reportable Spherocytes Not Reportable Pappenheimer Bodies Not Reportable Sickle Cells Not Reportable Target Cells Not Reportable Tear Drop Cells Not Reportable Ovalocytes Not Reportable Helmet Cells Not Reportable Sandoval-Onset Bodies Not Reportable [place] Rings Not Reportable [place] Cells Not Reportable Bite Cells Not Reportable Crenated Cell Not Reportable Elliptocytes Not Reportable Acanthocytes (Spur) Not Reportable Rouleaux Not Reportable Hemoglobin C Crystals Not Reportable Schistocytes Not Reportable Malaria parasites Not Reportable Petar Bodies Not Reportable Hem Pathologist Commnt No Sodium 144 (137-145) mmol/L Potassium 4.3 (3.6-5.0) mmol/L Chloride 106.6 (98-107) mmol/L Carbon Dioxide 22 (22-30) mmol/L Anion Gap 20 mmol/L BUN 5 L (7-17) mg/dL Creatinine 0.6 (0.6-1.2) mg/dL Estimated GFR > 60 ml/min BUN/Creatinine Ratio 8 % Glucose 87 (65-100) mg/dL Calcium 8.9 (8.4-10.2) mg/dL Urine Color (Yellow) Urine Turbidity (Clear) Urine pH (5.0-7.0) Ur Specific [place] (1.003-1.030) Urine Protein (Negative) mg/dL Urine Glucose (UA) (Negative) mg/dL Urine Ketones (Negative) mg/dL Urine Blood (Negative) Urine Nitrite (Negative) Urine Bilirubin (Negative) Urine Urobilinogen (<2.0) mg/dL Ur Leukocyte Esterase (Negative) Urine WBC (Auto) (0.0-6.0) /HPF Urine RBC (Auto) (0.0-6.0) /HPF U Epithel Cells (Auto) (0-13.0) /HPF Urine Opiates Screen Urine Methadone Screen Ur Barbiturates Screen Ur Phencyclidine Scrn Ur Amphetamines Screen U Benzodiazepines Scrn Urine Cocaine Screen U Marijuana (THC) Screen Drugs of Abuse Note Plasma/Serum Alcohol 0.34 H (0-0.07) % 04/19/20 04/19/20 Range/Units 17:08 17:08 WBC (4.5-11.0) K/mm3 RBC (3.65-5.03) M/mm3 Hgb (10.1-14.3) gm/dl Hct (30.3-42.9) % MCV (79-97) fl MCH (28-32) pg MCHC (30-34) % RDW (13.2-15.2) % Plt Count (140-440) K/mm3 Eos % (Auto) Baso % (Auto) Add Manual Diff Total Counted Seg Neutrophils % Seg Neuts % (Manual) (40.0-70.0) % Band Neutrophils % % Lymphocytes % (Manual) (13.4-35.0) % Reactive Lymphs % (Man) % Monocytes % (Manual) (0.0-7.3) % Eosinophils % (Manual) (0.0-4.3) % Basophils % (Manual) (0.0-1.8) % Metamyelocytes % % Myelocytes % % Promyelocytes % % Blast Cells % % Nucleated RBC % Seg Neutrophils # Man (1.8-7.7) K/mm3 Band Neutrophils # K/mm3 Lymphocytes # (Manual) (1.2-5.4) K/mm3 Abs React Lymphs (Man) K/mm3 Monocytes # (Manual) (0.0-0.8) K/mm3 Eosinophils # (Manual) (0.0-0.4) K/mm3 Basophils # (Manual) (0.0-0.1) K/mm3 Metamyelocytes # K/mm3 Myelocytes # K/mm3 Promyelocytes # K/mm3 Blast Cells # K/mm3 WBC Morphology Hypersegmented Neuts Hyposegmented Neuts Hypogranular Neuts Smudge Cells Toxic Granulation Toxic Vacuolation Dohle Bodies Pelger-Huet Anomaly Christine Rods Platelet Estimate Clumped Platelets Plt Clumps, EDTA Large Platelets Giant Platelets Platelet Satelliting Plt Morphology Comment RBC Morphology Dimorphic RBCs Polychromasia Hypochromasia Poikilocytosis Anisocytosis Microcytosis Macrocytosis Spherocytes Pappenheimer Bodies Sickle Cells Target Cells Tear Drop Cells Ovalocytes Helmet Cells Sandoval-Onset Bodies [place] Rings [place] Cells Bite Cells Crenated Cell Elliptocytes Acanthocytes (Spur) Rouleaux Hemoglobin C Crystals Schistocytes Malaria parasites Petar Bodies Hem Pathologist Commnt Sodium (137-145) mmol/L Potassium (3.6-5.0) mmol/L Chloride (98-107) mmol/L Carbon Dioxide (22-30) mmol/L Anion Gap mmol/L BUN (7-17) mg/dL Creatinine (0.6-1.2) mg/dL Estimated GFR ml/min BUN/Creatinine Ratio % Glucose (65-100) mg/dL Calcium (8.4-10.2) mg/dL Urine Color Straw (Yellow) Urine Turbidity Clear (Clear) Urine pH 6.0 (5.0-7.0) Ur Specific [place] 1.006 (1.003-1.030) Urine Protein <15 mg/dl (Negative) mg/dL Urine Glucose (UA) Neg (Negative) mg/dL Urine Ketones Neg (Negative) mg/dL Urine Blood Neg (Negative) Urine Nitrite Neg (Negative) Urine Bilirubin Neg (Negative) Urine Urobilinogen < 2.0 (<2.0) mg/dL Ur Leukocyte Esterase Neg (Negative) Urine WBC (Auto) < 1.0 (0.0-6.0) /HPF Urine RBC (Auto) 3.0 (0.0-6.0) /HPF U Epithel Cells (Auto) 1.0 (0-13.0) /HPF Urine Opiates Screen Negative Urine Methadone Screen Negative Ur Barbiturates Screen Negative Ur Phencyclidine Scrn Negative Ur Amphetamines Screen Negative U Benzodiazepines Scrn Positive Urine Cocaine Screen Positive U Marijuana (THC) Screen Negative Drugs of Abuse Note Disclamer Plasma/Serum Alcohol (0-0.07) % ED Medical Decision Making - Lab Data Result diagrams: 04/19/20 16:36 04/19/20 16:36 - Medical Decision Making This patient presents to the emergency department with a complaint of depression and suicidal ideations. For this reason the patient has been made a 1013. The patient does admit to history of alcohol abuse and dependence. There is some history of alcohol withdrawal including a withdrawal seizure in September of this year. She has been placed on the CIWA protocol. The patient's labs shows some anemia with hemoglobin of 9, but this does not require any transfusion. The blood alcohol level came back at 0.34 and urine drug screen was positive for cocaine and benzodiazepines. The patient has received IV fluid resuscitation including a banana bag with vitamins and thiamine. She was seen by the psychiatric assessment team who agrees with the plan for inpatient stabilization. At this time the blood alcohol level should be under 0.2. The patient is easily arousable and is oriented. She has received 1 dose of Librium for a CIWA score of 9. We will continue to monitor this patient as her blood alcohol level decreases, and pending any signs of severe alcohol withdrawal the patient is medically cleared for psychiatric placement. Critical Care Time: No Critical care attestation.: If time is entered above; I have spent that time in minutes in the direct care of this critically ill patient, excluding procedure time. ED Disposition Clinical Impression: Alcohol abuse, Depression, Suicidal ideations, Polysubstance abuse Is pt being admited?: No Time of Disposition: 01:38
[2020-04-19 17:18] LABS: BUN/Creatinine Ratio 8; Blood Urea Nitrogen 5 mg/dL (7-17); Calcium 8.9 mg/dL (8.4-10.2); Hemolysis Index 9
[2020-04-19 17:20] LABS: Hematocrit 29.3 % (30.3-42.9); Hemoglobin 9.1 gm/dl (10.1-14.3); Mean Corpuscular HGB Conc 31 % (30-34); Mean Corpuscular Volume 81 fl (79-97); Platelet Count 374 K/mm3 (140-440); Red Blood Count 3.62 M/mm3 (3.65-5.03); Red Cell Distribution Width 19.9 % (13.2-15.2)
[2020-04-19 17:29] LABS: Amphetamine Screen,Urine Negative; Cannabinoid Screen,Urine Negative; Methadone Screen,Urine Negative; Opiate Screen,Urine Negative
[2020-04-19 17:32] LABS: Bilirubin,Urine NEG (Negative); Blood,Urine NEG (Negative); Color,Urine Straw (Yellow); Protein,Urine <15 mg/dL mg/dL (Negative); Urobilinogen,Urine < 2.0 mg/dL (<2.0); WBC,Urine < 1.0 /HPF (0.0-6.0)
[2020-04-19 17:44] LABS: Benzodiazepines Screen,Urine Positive; Cocaine Screen,Urine Positive
[2020-04-19 17:56] LABS: Anisocytosis 1+; Total Cells Counted 100
[2020-04-19 17:57] LABS: Hypochromasia 1+; Platelet Clumps Few
[2020-04-19] MEDS ORDERED: THIAMINE 100 MG, FOLIC ACID 1 MG, MULTIPLE VITAMIN INJ, ADULT 10 ML in SODIUM CHLORIDE ... IV ONE (19:00)
[2020-04-19] MEDS: chlordiazePOXIDE 25 MG CAP PO PRN (22:31)
[2020-04-20] MEDS: chlordiazePOXIDE 25 MG CAP PO PRN (04:03)
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
[2020-04-20 09:04] VITALS: BP 141/69
== END 2020-04-20 12:11 | disposition home or self-care (01) ==
LOC: ED 16:10 → EEVIPCON 16:10 → ED 04-20 12:11
DX: F32.9 Major depressive disorder, single episode, unspecified (principal); F19.10 Other psychoactive substance abuse, uncomplicated; F10.10 Alcohol abuse, uncomplicated; R45.851 Suicidal ideations; F17.200 Nicotine dependence, unspecified, uncomplicated; Z86.69 Personal history of other diseases of the nervous system and sense organs; Z98.890 Other specified postprocedural states; Z79.899 Other long term (current) drug therapy; Z88.8 Allergy status to other drugs, medicaments and biological substances
CPT/HCPCS: 36415; 80048; 80307; 81001; 85007; 85025; 96365; 96366; 99285; J3411; J7030; 80320; G0480

== ENCOUNTER 2021-10-30 11:39 | Emergency (ER) | payer SELFPAY ==
[2021-10-30] MEDS ORDERED: MAGNESIUM SULFATE 2 GM/50 ML BAG IV ONE (13:31)
[2021-10-30] MEDS ORDERED: THIAMINE 100 MG, FOLIC ACID 1 MG, MULTIPLE VITAMIN INJ, ADULT 10 ML in SODIUM CHLORIDE ... IV ONE (13:31)
--- NOTE | 2021-10-30 13:36 | Emergency Department Report ---
HPI - General Chief Complaint: Alcohol Time Seen by Provider: 10/30/21 12:59 - HPI HPI: Room 24 Patient is a 41-year-old female present with chief complaint of alcoholism. Patient states she came to the emergency department because she had a fast heart rate and felt paranoid about her alcoholism and desires for detox. Patient states she goes through approximately 1 pint of liquor daily and last consumed this morning. Patient was seen at [facility] last night and was told she had 2 months of this secondary to alcoholic liver disease. ED Past Medical Hx - Past Medical History Hx Hypertension: Yes Hx Seizures: Yes (first on 09/25/2019) Hx Psychiatric Treatment: Yes (ETOH abuse) Additional medical history: history of SVT - Surgical History Additional Surgical History: elbow surgeries? BILATERAL CARPAL TUNNEL SURGERY 2016, tracheostomy 2020 after cardiac arrest secondary to "alcohol abuse." - Family History Family history: no significant - Social History Smoking Status: Current Every Day Smoker (2/3 pack/day) Substance Use Type: None (Denies illicit drug use), Alcohol (1 pint of liquor daily) - Medications Home Medications: Home Medications Medication Instructions Recorded Confirmed Last Taken Type chlordiazePOXIDE [Librium] 25 mg PO 4XD 04/20/20 04/20/20 Unknown History ED Review of Systems ROS: Stated complaint: ETOH DETOX Other details as noted in HPI Constitutional: no symptoms reported Eyes: denies: eye pain ENT: denies: throat pain Respiratory: no symptoms reported Cardiovascular: palpitations. denies: chest pain Endocrine: denies: no symptoms reported Gastrointestinal: denies: abdominal pain Genitourinary: denies: dysuria Musculoskeletal: denies: back pain Neurological: denies: headache Physical Exam - Physical Exam Vital Signs: Vital Signs 10/30/21 11:40 Temperature 98 F Pulse Rate 89 Blood Pressure 159/100 [Left] O2 Sat by Pulse 98 Oximetry Physical Exam: GENERAL: The patient is well-developed well-nourished female lying on stretcher not appearing to be in acute distress. [] HEENT: Normocephalic. Atraumatic. Extraocular motions are intact. Patient has moist mucous membranes. NECK: Supple. Trachea midline CHEST/LUNGS: Clear to auscultation. There is no respiratory distress noted. HEART/CARDIOVASCULAR: Regular. There is no tachycardia. There is no gallop rub or murmur. ABDOMEN: Abdomen is soft, with mild epigastric discomfort to palpation. Patient has normal bowel sounds. There is no abdominal distention. SKIN: There is no rash. There is no edema. There is no diaphoresis. NEURO: The patient is awake, alert, and oriented. The patient is cooperative. The patient has no focal neurologic deficits. The patient has normal speech. GCS 15 MUSCULOSKELETAL: There is no evidence of acute injury. ED Course Vital Signs 10/30/21 11:40 Temperature 98 F Pulse Rate 89 Blood Pressure 159/100 [Left] O2 Sat by Pulse 98 Oximetry ED Medical Decision Making - Lab Data Result diagrams: 10/30/21 Unknown 10/30/21 Unknown - Differential Diagnosis Alcoholism Critical care attestation.: If time is entered above; I have spent that time in minutes in the direct care of this critically ill patient, excluding procedure time. ED Disposition Clinical Impression: Alcohol abuse Disposition: 07 LEFT AWOL/ELOPED Is pt being admited?: No Does the pt Need Aspirin: No Condition: Stable
[2021-10-30 15:35] LABS: Alanine Aminotransferase 13 units/L (7-56); Albumin 4.3 g/dL (3.9-5); Blood Urea Nitrogen 9 mg/dL (7-17); Calcium 8.6 mg/dL (8.4-10.2); Hemolysis Index 3
[2021-10-30 15:37] LABS: BUN/Creatinine Ratio 18; INR 0.97 (0.87-1.13)
[2021-10-30 15:38] LABS: Partial Thromboplastin Time 33.2 Sec. (24.2-36.6)
[2021-10-30 15:39] LABS: Hemoglobin 10.4 gm/dl (10.1-14.3); Mean Corpuscular HGB Conc 31 % (30-34); Mean Corpuscular Volume 70 fl (79-97); Platelet Count 205 K/mm3 (140-440); Red Blood Count 4.83 M/mm3 (3.65-5.03)
[2021-10-30 15:40] LABS: Red Cell Distribution Width 28.5 % (13.2-15.2)
[2021-10-30 16:49] LABS: Bilirubin,Urine NEG (Negative); Blood,Urine LG (Negative); Color,Urine Yellow (Yellow); Protein,Urine <15 mg/dL mg/dL (Negative); Urobilinogen,Urine < 2.0 mg/dL (<2.0)
[2021-10-30 16:51] LABS: Mucus,Urine FEW /HPF; RBC,Urine < 1.0 /HPF (0.0-6.0)
[2021-10-30 16:58] LABS: Amphetamine Screen,Urine Negative; Cannabinoid Screen,Urine Negative; Cocaine Screen,Urine Negative; Methadone Screen,Urine Negative; Opiate Screen,Urine Negative
[2021-10-30] MEDS ORDERED: LORazepam 2 MG/ML VIAL IV PRN ×3 (17:03)
[2021-10-30 17:13] LABS: Benzodiazepines Screen,Urine Positive
[2021-10-30 17:36] VITALS: BP 126/69
[2021-10-30 18:59] LABS: Anisocytosis 2+; Eosinophils % (Manual) 0 % (0.0-4.3); Hypochromasia 2+; Platelet Estimate Consistent w Auto; Total Cells Counted 100
== END 2021-10-30 18:27 | disposition left against medical advice (07) ==
LOC: ED 11:39
DX: F10.10 Alcohol abuse, uncomplicated (principal); I10 Essential (primary) hypertension; F17.200 Nicotine dependence, unspecified, uncomplicated; Z88.6 Allergy status to analgesic agent; Z91.030 Bee allergy status; Z88.8 Allergy status to other drugs, medicaments and biological substances; Z79.899 Other long term (current) drug therapy; Z98.890 Other specified postprocedural states; Y90.9 Presence of alcohol in blood, level not specified
CPT/HCPCS: 36415; 80053; 80307; 81001; 83690; 84702; 85007; 85025; 85610; 85730; 96365; 96366; 96368; 99284; J3411; J3475; J3490; J7030; 80320; G0480

== ENCOUNTER 2021-11-24 22:20 | Inpatient (IN) | payer SELFPAY ==
[2021-11-24] MEDS ORDERED: ONDANSETRON 4 MG/2 ML INJ IV ONE (23:57)
[2021-11-24] MEDS ORDERED: SODIUM CHLORIDE 0.9% 1000 ML 1,000 ML IV ONE (23:57)
[2021-11-24] MEDS ORDERED: THIAMINE 100 MG, FOLIC ACID 1 MG, MULTIPLE VITAMIN INJ, ADULT 10 ML in SODIUM CHLORIDE ... IV ONE (23:58)
[2021-11-24] MEDS ORDERED: PANTOPRAZOLE 40 MG INJ IV ONE (23:58)
[2021-11-24] MEDS ORDERED: LORazepam 2 MG/ML VIAL IV ONE (23:58)
--- NOTE | 2021-11-25 00:25 | Emergency Department Report ---
ED GI Bleed HPI - General Chief complaint: GI Bleed Stated complaint: HYPOGLYCEMIA,VOMITING, RECTAL BLEEDING Time Seen by Provider: 11/24/21 23:48 Source: patient, EMS Mode of arrival: Stretcher Limitations: No Limitations - History of Present Illness Initial comments: 41-year-old female the past medical history of hypertension and alcohol abuse presents to the hospital with complaints of vomiting with p.o. intolerance since yesterday. Patient states she is vomiting blood and noted yellow stool with blood in the toilet. Patient also happens to be on her menstrual cycle for last 2 days after not having a cycle for 2 weeks. Patient's last alcohol drink was 8 AM. She drinks liquor daily with history of alcohol withdrawal tremors and seizures. She complains of generalized abdominal pain and feeling thirsty. Accu-Chek was 40 upon EMS arrival. She was provided oral glucose and Accu-Chek went to 136 with then subsequently decreased to 57. [place] juice was provided by staff. Patient has previous surgical history of feeding tube placement after cardiac arrest but denies other abdominal surgeries. Patient denies previous history of GI bleed. Patient does state she has been treated with carvedilol in the past but has been noncompliant for several months - Related Data Home Medications Medication Instructions Recorded Confirmed Last Taken chlordiazePOXIDE [Librium] 25 mg PO 4XD 04/20/20 04/20/20 Unknown Allergies Allergy/AdvReac Type Severity Reaction Status Date / Time bee venom protein (honey bee) Allergy Unknown Verified 10/30/21 11:43 metoprolol Allergy Hives Verified 10/30/21 11:43 tramadol Allergy Hives Verified 10/30/21 11:43 ED Review of Systems ROS: Stated complaint: HYPOGLYCEMIA,VOMITING, RECTAL BLEEDING Other details as noted in HPI Comment: All other systems reviewed and negative ED Past Medical Hx - Past Medical History Previous Medical History?: Yes Hx Hypertension: Yes Hx Heart Attack/AMI: Yes Hx Seizures: Yes (first on 09/25/2019) Hx Psychiatric Treatment: Yes (ETOH abuse) Additional medical history: history of SVT - Surgical History Past Surgical History?: Yes Additional Surgical History: elbow surgeries? BILATERAL CARPAL TUNNEL SURGERY 2016, tracheostomy 2020 after cardiac arrest secondary to "alcohol abuse." - Social History Smoking Status: Current Every Day Smoker Substance Use Type: None - Medications Home Medications: Home Medications Medication Instructions Recorded Confirmed Last Taken Type chlordiazePOXIDE [Librium] 25 mg PO 4XD 04/20/20 04/20/20 Unknown History ED Physical Exam - General Limitations: No Limitations - Other Other exam information: General: No acute distress Head: Atraumatic Eyes: normal appearance ENT: Moist mucous membranes Neck: Normal appearance, no midline tenderness Chest: Clear to auscultation bilaterally CV: Tachycardic regular rhythm Abdomen: Soft, normal bowel sounds, generalized tenderness Back: Normal inspection Extremity: Normal inspection, full range of motion Neuro: Alert O x 3, no facial asymmetry, speech clear, no gross motor sensory deficit Psych: Appropriate behavior Skin: No rash ED Course Vital Signs 11/24/21 11/24/21 11/24/21 22:21 23:49 23:57 Temperature 98 F Pulse Rate 120 H 136 H 129 H Respiratory 18 25 H 17 Rate Blood Pressure 108/76 121/71 O2 Sat by Pulse 100 98 98 Oximetry 11/25/21 11/25/21 11/25/21 00:01 00:15 00:31 Temperature Pulse Rate 133 H 129 H 134 H Respiratory 20 20 26 H Rate Blood Pressure 120/75 120/75 111/70 O2 Sat by Pulse 97 99 100 Oximetry 11/25/21 11/25/21 11/25/21 00:45 01:01 01:15 Temperature Pulse Rate 124 H 122 H 121 H Respiratory 21 23 23 Rate Blood Pressure 111/70 123/63 123/63 O2 Sat by Pulse 100 99 100 Oximetry 11/25/21 11/25/21 11/25/21 01:31 01:45 02:01 Temperature Pulse Rate 126 H 130 H 125 H Respiratory 24 22 25 H Rate Blood Pressure 111/53 111/53 111/53 O2 Sat by Pulse 98 Oximetry 11/25/21 11/25/21 11/25/21 02:15 02:31 02:46 Temperature Pulse Rate 127 H 141 H 136 H Respiratory 21 15 18 Rate Blood Pressure 118/55 133/61 133/61 O2 Sat by Pulse 99 99 100 Oximetry 11/25/21 11/25/21 11/25/21 03:49 04:03 04:15 Temperature Pulse Rate 136 H 153 H 136 H Respiratory 22 22 20 Rate Blood Pressure 133/61 107/61 O2 Sat by Pulse 99 100 99 Oximetry 11/25/21 11/25/21 11/25/21 04:31 04:45 05:01 Temperature Pulse Rate 127 H 120 H 121 H Respiratory 24 22 22 Rate Blood Pressure 113/59 113/59 108/57 O2 Sat by Pulse 98 100 98 Oximetry 11/25/21 11/25/21 11/25/21 05:15 05:31 05:45 Temperature Pulse Rate 120 H 118 H 116 H Respiratory 21 22 23 Rate Blood Pressure 108/57 105/53 105/53 O2 Sat by Pulse 99 100 100 Oximetry 11/25/21 11/25/21 06:01 07:37 Temperature Pulse Rate 130 H Respiratory 17 Rate Blood Pressure 103/54 O2 Sat by Pulse 100 98 Oximetry - Consultations Consultation #1: 11/25/21 03:41 Case discussed with critical care attending Dr. Feldman, since patient is alert she does not recommend bicarb drip at this time or bicarb IV push. Agrees with treating with dextrose containing fluids for possible AKA and acute alcohol intoxication which may be the cause of her acid-base disturbances. Recommend at least IMCU admission. ED Medical Decision Making - Lab Data Result diagrams: 11/25/21 00:22 11/25/21 00:22 Lab Results 11/24/21 11/25/21 11/25/21 Range/Units 00:28 00:22 00:22 WBC 10.4 (4.5-11.0) K/mm3 RBC 5.00 (3.65-5.03) M/mm3 Hgb 10.5 (10.1-14.3) gm/dl Hct 36.5 (30.3-42.9) % MCV 73 L (79-97) fl MCH 21 L (28-32) pg MCHC 29 L (30-34) % RDW 28.0 H (13.2-15.2) % Plt Count 319 (140-440) K/mm3 Add Manual Diff Complete Total Counted 100 Seg Neuts % (Manual) 88.0 H (40.0-70.0) % Band Neutrophils % 0 % Lymphocytes % (Manual) 7.0 L (13.4-35.0) % Reactive Lymphs % (Man) 0 % Monocytes % (Manual) 4.0 (0.0-7.3) % Eosinophils % (Manual) 1.0 (0.0-4.3) % Basophils % (Manual) 0 (0.0-1.8) % Metamyelocytes % 0 % Myelocytes % 0 % Promyelocytes % 0 % Blast Cells % 0 % Nucleated RBC % 2.0 H (0.0-0.9) % Seg Neutrophils # Man 9.2 H (1.8-7.7) K/mm3 Band Neutrophils # 0.0 K/mm3 Lymphocytes # (Manual) 0.7 L (1.2-5.4) K/mm3 Abs React Lymphs (Man) 0.0 K/mm3 Monocytes # (Manual) 0.4 (0.0-0.8) K/mm3 Eosinophils # (Manual) 0.1 (0.0-0.4) K/mm3 Basophils # (Manual) 0.0 (0.0-0.1) K/mm3 Metamyelocytes # 0.0 K/mm3 Myelocytes # 0.0 K/mm3 Promyelocytes # 0.0 K/mm3 Blast Cells # 0.0 K/mm3 WBC Morphology Not Reportable Hypersegmented Neuts Not Reportable Hyposegmented Neuts Not Reportable Hypogranular Neuts Not Reportable Smudge Cells Not Reportable Toxic Granulation Not Reportable Toxic Vacuolation Not Reportable Dohle Bodies Not Reportable Pelger-Huet Anomaly Not Reportable Christine Rods Not Reportable Platelet Estimate Consistent w auto Clumped Platelets Not Reportable Plt Clumps, EDTA Not Reportable Large Platelets Not Reportable Giant Platelets Not Reportable Platelet Satelliting Not Reportable Plt Morphology Comment Not Reportable RBC Morphology Not Reportable Dimorphic RBCs Not Reportable Polychromasia Not Reportable Hypochromasia 1+ Poikilocytosis Not Reportable Anisocytosis 1+ Microcytosis Not Reportable Macrocytosis Not Reportable Spherocytes Not Reportable Pappenheimer Bodies Not Reportable Sickle Cells Not Reportable Target Cells Not Reportable Tear Drop Cells Not Reportable Ovalocytes Not Reportable Helmet Cells Not Reportable Sandoval-Nice Bodies Not Reportable Call Rings Not Reportable Lesley Cells Not Reportable Bite Cells Not Reportable Crenated Cell Not Reportable Elliptocytes Not Reportable Acanthocytes (Spur) Not Reportable Rouleaux Not Reportable Hemoglobin C Crystals Not Reportable Schistocytes Not Reportable Malaria parasites Not Reportable Petar Bodies Not Reportable Hem Pathologist Commnt No PT 15.5 H (12.2-14.9) Sec. INR 1.10 (0.87-1.13) APTT 30.9 (24.2-36.6) Sec. VBG pH (7.320-7.420) Sodium (137-145) mmol/L Potassium (3.6-5.0) mmol/L Chloride (98-107) mmol/L Carbon Dioxide (22-30) mmol/L Anion Gap mmol/L BUN (7-17) mg/dL Creatinine (0.6-1.2) mg/dL Estimated GFR ml/min BUN/Creatinine Ratio % Glucose (65-100) mg/dL POC Glucose (70-105) mg/dL Lactic Acid (0.7-2.0) mmol/L Calcium (8.4-10.2) mg/dL Magnesium (1.7-2.3) mg/dL Total Bilirubin (0.1-1.2) mg/dL AST (5-40) units/L ALT (7-56) units/L Alkaline Phosphatase (35-129) units/L Ammonia (25-60) umol/L Total Protein (6.3-8.2) g/dL Albumin (3.9-5) g/dL Albumin/Globulin Ratio % Lipase (13-60) units/L TSH (0.270-4.200) mlU/mL Free T4 (0.76-1.46) ng/dL HCG, Qual (Negative) Plasma/Serum Alcohol (0-0.07) % Blood Type O POSITIVE Antibody Screen Negative 11/25/21 11/25/21 11/25/21 Range/Units 00:22 00:22 00:22 WBC (4.5-11.0) K/mm3 RBC (3.65-5.03) M/mm3 Hgb (10.1-14.3) gm/dl Hct (30.3-42.9) % MCV (79-97) fl MCH (28-32) pg MCHC (30-34) % RDW (13.2-15.2) % Plt Count (140-440) K/mm3 Add Manual Diff Total Counted Seg Neuts % (Manual) (40.0-70.0) % Band Neutrophils % % Lymphocytes % (Manual) (13.4-35.0) % Reactive Lymphs % (Man) % Monocytes % (Manual) (0.0-7.3) % Eosinophils % (Manual) (0.0-4.3) % Basophils % (Manual) (0.0-1.8) % Metamyelocytes % % Myelocytes % % Promyelocytes % % Blast Cells % % Nucleated RBC % (0.0-0.9) % Seg Neutrophils # Man (1.8-7.7) K/mm3 Band Neutrophils # K/mm3 Lymphocytes # (Manual) (1.2-5.4) K/mm3 Abs React Lymphs (Man) K/mm3 Monocytes # (Manual) (0.0-0.8) K/mm3 Eosinophils # (Manual) (0.0-0.4) K/mm3 Basophils # (Manual) (0.0-0.1) K/mm3 Metamyelocytes # K/mm3 Myelocytes # K/mm3 Promyelocytes # K/mm3 Blast Cells # K/mm3 WBC Morphology Hypersegmented Neuts Hyposegmented Neuts Hypogranular Neuts Smudge Cells Toxic Granulation Toxic Vacuolation Dohle Bodies Pelger-Huet Anomaly Christine Rods Platelet Estimate Clumped Platelets Plt Clumps, EDTA Large Platelets Giant Platelets Platelet Satelliting Plt Morphology Comment RBC Morphology Dimorphic RBCs Polychromasia Hypochromasia Poikilocytosis Anisocytosis Microcytosis Macrocytosis Spherocytes Pappenheimer Bodies Sickle Cells Target Cells Tear Drop Cells Ovalocytes Helmet Cells Sandoval-Nice Bodies Call Rings [place] Cells Bite Cells Crenated Cell Elliptocytes Acanthocytes (Spur) Rouleaux Hemoglobin C Crystals Schistocytes Malaria parasites Petar Bodies Hem Pathologist Commnt PT (12.2-14.9) Sec. INR (0.87-1.13) APTT (24.2-36.6) Sec. VBG pH (7.320-7.420) Sodium 145 (137-145) mmol/L Potassium 4.8 (3.6-5.0) mmol/L Chloride 96.7 L (98-107) mmol/L Carbon Dioxide 5 L* (22-30) mmol/L Anion Gap 48 mmol/L BUN 13 (7-17) mg/dL Creatinine 1.5 H (0.6-1.2) mg/dL Estimated GFR 46 ml/min BUN/Creatinine Ratio 9 % Glucose 45 L (65-100) mg/dL POC Glucose (70-105) mg/dL Lactic Acid (0.7-2.0) mmol/L Calcium 9.0 (8.4-10.2) mg/dL Magnesium 2.00 (1.7-2.3) mg/dL Total Bilirubin 0.20 (0.1-1.2) mg/dL AST 181 H (5-40) units/L ALT 43 (7-56) units/L Alkaline Phosphatase 143 H (35-129) units/L Ammonia 44.0 (25-60) umol/L Total Protein 7.6 (6.3-8.2) g/dL Albumin 4.3 (3.9-5) g/dL Albumin/Globulin Ratio 1.3 % Lipase 7 L (13-60) units/L TSH (0.270-4.200) mlU/mL Free T4 (0.76-1.46) ng/dL HCG, Qual (Negative) Plasma/Serum Alcohol (0-0.07) % Blood Type Antibody Screen 11/25/21 11/25/21 11/25/21 Range/Units 00:22 00:28 01:49 WBC (4.5-11.0) K/mm3 RBC (3.65-5.03) M/mm3 Hgb (10.1-14.3) gm/dl Hct (30.3-42.9) % MCV (79-97) fl MCH (28-32) pg MCHC (30-34) % RDW (13.2-15.2) % Plt Count (140-440) K/mm3 Add Manual Diff Total Counted Seg Neuts % (Manual) (40.0-70.0) % Band Neutrophils % % Lymphocytes % (Manual) (13.4-35.0) % Reactive Lymphs % (Man) % Monocytes % (Manual) (0.0-7.3) % Eosinophils % (Manual) (0.0-4.3) % Basophils % (Manual) (0.0-1.8) % Metamyelocytes % % Myelocytes % % Promyelocytes % % Blast Cells % % Nucleated RBC % (0.0-0.9) % Seg Neutrophils # Man (1.8-7.7) K/mm3 Band Neutrophils # K/mm3 Lymphocytes # (Manual) (1.2-5.4) K/mm3 Abs React Lymphs (Man) K/mm3 Monocytes # (Manual) (0.0-0.8) K/mm3 Eosinophils # (Manual) (0.0-0.4) K/mm3 Basophils # (Manual) (0.0-0.1) K/mm3 Metamyelocytes # K/mm3 Myelocytes # K/mm3 Promyelocytes # K/mm3 Blast Cells # K/mm3 WBC Morphology Hypersegmented Neuts Hyposegmented Neuts Hypogranular Neuts Smudge Cells Toxic Granulation Toxic Vacuolation Dohle Bodies Pelger-Huet Anomaly Christine Rods Platelet Estimate Clumped Platelets Plt Clumps, EDTA Large Platelets Giant Platelets Platelet Satelliting Plt Morphology Comment RBC Morphology Dimorphic RBCs Polychromasia Hypochromasia Poikilocytosis Anisocytosis Microcytosis Macrocytosis Spherocytes Pappenheimer Bodies Sickle Cells Target Cells Tear Drop Cells Ovalocytes Helmet Cells Sandoval-Nice Bodies Call Rings Lesley Cells Bite Cells Crenated Cell Elliptocytes Acanthocytes (Spur) Rouleaux Hemoglobin C Crystals Schistocytes Malaria parasites Petar Bodies Hem Pathologist Commnt PT (12.2-14.9) Sec. INR (0.87-1.13) APTT (24.2-36.6) Sec. VBG pH (7.320-7.420) Sodium (137-145) mmol/L Potassium (3.6-5.0) mmol/L Chloride (98-107) mmol/L Carbon Dioxide (22-30) mmol/L Anion Gap mmol/L BUN (7-17) mg/dL Creatinine (0.6-1.2) mg/dL Estimated GFR ml/min BUN/Creatinine Ratio % Glucose (65-100) mg/dL POC Glucose (70-105) mg/dL Lactic Acid 12.50 H* (0.7-2.0) mmol/L Calcium (8.4-10.2) mg/dL Magnesium (1.7-2.3) mg/dL Total Bilirubin (0.1-1.2) mg/dL AST (5-40) units/L ALT (7-56) units/L Alkaline Phosphatase (35-129) units/L Ammonia (25-60) umol/L Total Protein (6.3-8.2) g/dL Albumin (3.9-5) g/dL Albumin/Globulin Ratio % Lipase (13-60) units/L TSH 0.879 (0.270-4.200) mlU/mL Free T4 0.45 L (0.76-1.46) ng/dL HCG, Qual Negative (Negative) Plasma/Serum Alcohol (0-0.07) % Blood Type Antibody Screen 11/25/21 11/25/21 11/25/21 Range/Units 01:49 01:49 02:15 WBC (4.5-11.0) K/mm3 RBC (3.65-5.03) M/mm3 Hgb (10.1-14.3) gm/dl Hct (30.3-42.9) % MCV (79-97) fl MCH (28-32) pg MCHC (30-34) % RDW (13.2-15.2) % Plt Count (140-440) K/mm3 Add Manual Diff Total Counted Seg Neuts % (Manual) (40.0-70.0) % Band Neutrophils % % Lymphocytes % (Manual) (13.4-35.0) % Reactive Lymphs % (Man) % Monocytes % (Manual) (0.0-7.3) % Eosinophils % (Manual) (0.0-4.3) % Basophils % (Manual) (0.0-1.8) % Metamyelocytes % % Myelocytes % % Promyelocytes % % Blast Cells % % Nucleated RBC % (0.0-0.9) % Seg Neutrophils # Man (1.8-7.7) K/mm3 Band Neutrophils # K/mm3 Lymphocytes # (Manual) (1.2-5.4) K/mm3 Abs React Lymphs (Man) K/mm3 Monocytes # (Manual) (0.0-0.8) K/mm3 Eosinophils # (Manual) (0.0-0.4) K/mm3 Basophils # (Manual) (0.0-0.1) K/mm3 Metamyelocytes # K/mm3 Myelocytes # K/mm3 Promyelocytes # K/mm3 Blast Cells # K/mm3 WBC Morphology Hypersegmented Neuts Hyposegmented Neuts Hypogranular Neuts Smudge Cells Toxic Granulation Toxic Vacuolation Dohle Bodies Pelger-Huet Anomaly Christine Rods Platelet Estimate Clumped Platelets Plt Clumps, EDTA Large Platelets Giant Platelets Platelet Satelliting Plt Morphology Comment RBC Morphology Dimorphic RBCs Polychromasia Hypochromasia Poikilocytosis Anisocytosis Microcytosis Macrocytosis Spherocytes Pappenheimer Bodies Sickle Cells Target Cells Tear Drop Cells Ovalocytes Helmet Cells Sandoval-Nice Bodies Call Rings [place] Cells Bite Cells Crenated Cell Elliptocytes Acanthocytes (Spur) Rouleaux Hemoglobin C Crystals Schistocytes Malaria parasites Petar Bodies Hem Pathologist Commnt PT (12.2-14.9) Sec. INR (0.87-1.13) APTT (24.2-36.6) Sec. VBG pH 7.056 L* (7.320-7.420) Sodium (137-145) mmol/L Potassium (3.6-5.0) mmol/L Chloride (98-107) mmol/L Carbon Dioxide (22-30) mmol/L Anion Gap mmol/L BUN (7-17) mg/dL Creatinine (0.6-1.2) mg/dL Estimated GFR ml/min BUN/Creatinine Ratio % Glucose (65-100) mg/dL POC Glucose 27 L (70-105) mg/dL Lactic Acid (0.7-2.0) mmol/L Calcium (8.4-10.2) mg/dL Magnesium (1.7-2.3) mg/dL Total Bilirubin (0.1-1.2) mg/dL AST (5-40) units/L ALT (7-56) units/L Alkaline Phosphatase (35-129) units/L Ammonia (25-60) umol/L Total Protein (6.3-8.2) g/dL Albumin (3.9-5) g/dL Albumin/Globulin Ratio % Lipase (13-60) units/L TSH (0.270-4.200) mlU/mL Free T4 (0.76-1.46) ng/dL HCG, Qual (Negative) Plasma/Serum Alcohol 0.23 H (0-0.07) % Blood Type Antibody Screen 11/25/21 11/25/21 Range/Units 03:50 04:00 WBC (4.5-11.0) K/mm3 RBC (3.65-5.03) M/mm3 Hgb (10.1-14.3) gm/dl Hct (30.3-42.9) % MCV (79-97) fl MCH (28-32) pg MCHC (30-34) % RDW (13.2-15.2) % Plt Count (140-440) K/mm3 Add Manual Diff Total Counted Seg Neuts % (Manual) (40.0-70.0) % Band Neutrophils % % Lymphocytes % (Manual) (13.4-35.0) % Reactive Lymphs % (Man) % Monocytes % (Manual) (0.0-7.3) % Eosinophils % (Manual) (0.0-4.3) % Basophils % (Manual) (0.0-1.8) % Metamyelocytes % % Myelocytes % % Promyelocytes % % Blast Cells % % Nucleated RBC % (0.0-0.9) % Seg Neutrophils # Man (1.8-7.7) K/mm3 Band Neutrophils # K/mm3 Lymphocytes # (Manual) (1.2-5.4) K/mm3 Abs React Lymphs (Man) K/mm3 Monocytes # (Manual) (0.0-0.8) K/mm3 Eosinophils # (Manual) (0.0-0.4) K/mm3 Basophils # (Manual) (0.0-0.1) K/mm3 Metamyelocytes # K/mm3 Myelocytes # K/mm3 Promyelocytes # K/mm3 Blast Cells # K/mm3 WBC Morphology Hypersegmented Neuts Hyposegmented Neuts Hypogranular Neuts Smudge Cells Toxic Granulation Toxic Vacuolation Dohle Bodies Pelger-Huet Anomaly Christine Rods Platelet Estimate Clumped Platelets Plt Clumps, EDTA Large Platelets Giant Platelets Platelet Satelliting Plt Morphology Comment RBC Morphology Dimorphic RBCs Polychromasia Hypochromasia Poikilocytosis Anisocytosis Microcytosis Macrocytosis Spherocytes Pappenheimer Bodies Sickle Cells Target Cells Tear Drop Cells Ovalocytes Helmet Cells Sandoval-Nice Bodies Call Rings [place] Cells Bite Cells Crenated Cell Elliptocytes Acanthocytes (Spur) Rouleaux Hemoglobin C Crystals Schistocytes Malaria parasites Petar Bodies Hem Pathologist Commnt PT (12.2-14.9) Sec. INR (0.87-1.13) APTT (24.2-36.6) Sec. VBG pH (7.320-7.420) Sodium (137-145) mmol/L Potassium (3.6-5.0) mmol/L Chloride (98-107) mmol/L Carbon Dioxide (22-30) mmol/L Anion Gap mmol/L BUN (7-17) mg/dL Creatinine (0.6-1.2) mg/dL Estimated GFR ml/min BUN/Creatinine Ratio % Glucose (65-100) mg/dL POC Glucose 172 H (70-105) mg/dL Lactic Acid 11.50 H* (0.7-2.0) mmol/L Calcium (8.4-10.2) mg/dL Magnesium (1.7-2.3) mg/dL Total Bilirubin (0.1-1.2) mg/dL AST (5-40) units/L ALT (7-56) units/L Alkaline Phosphatase (35-129) units/L Ammonia (25-60) umol/L Total Protein (6.3-8.2) g/dL Albumin (3.9-5) g/dL Albumin/Globulin Ratio % Lipase (13-60) units/L TSH (0.270-4.200) mlU/mL Free T4 (0.76-1.46) ng/dL HCG, Qual (Negative) Plasma/Serum Alcohol (0-0.07) % Blood Type Antibody Screen - EKG Data -: EKG Interpreted by Mi EKG shows normal: sinus rhythm, ST-T waves (no stemi) Rate: tachycardia - Radiology Data Radiology results: report reviewed CHEST 1 VIEW 11/25/2021 1:24 AM INDICATION / CLINICAL INFORMATION: GI Bleed, vomiting. COMPARISON: 11/30/2019. FINDINGS: SUPPORT DEVICES: None. HEART / MEDIASTINUM: No significant abnormality. LUNGS / PLEURA: No significant pulmonary or pleural abnormality. No pneu mothorax. ADDITIONAL FINDINGS: No significant additional findings. IMPRESSION: No acute abnormality. CT ABDOMEN AND PELVIS WITH CONTRAST INDICATION / CLINICAL INFORMATION: vomiting blood, blood in stool, menses. TECHNIQUE: Axial CT images were obtained through the abdomen and pelvis after Omnipaque 300, [address] scans at this location are performed using CT dose reduction for ALARA by means of automated exposure control. COMPARISON: 09/29/2019. FINDINGS: LOWER CHEST: No significant abnormality. LIVER: Large with prominent diffuse fatty infiltration is less prominent than the previous exam. GALLBLADDER: No significant abnormality. BILE DUCTS: No significant abnormality. PANCREAS: No significant abnormality. SPLEEN: No significant abnormality. ADRENALS: No significant abnormality. RIGHT KIDNEY / URETER: No significant abnormality. LEFT KIDNEY / URETER: No significant abnormality. STOMACH / SMALL BOWEL: Moderate gastric distention. No small bowel distention. COLON: No significant abnormality. APPENDIX: No significant abnormality. PERITONEUM: No free fluid. No free air. No fluid collection. LYMPH NODES: No significant adenopathy. VASCULAR STRUCTURES: No significant abnormality. URINARY BLADDER: No significant abnormality. REPRODUCTIVE ORGANS: No significant abnormality. ADDITIONAL FINDINGS: None. SKELETAL SYSTEM: No significant abnormality. IMPRESSION: 1. Large, fatty liver with mild improvement from the previous exam. 2. Negative for obstruction or localized inflammation. 3. Moderate gastric distention. - Medical Decision Making 41-year-old female alcoholic presents to the hospital with nausea and vomiting. Labs reveal significant anion gap metabolic acidosis which is likely multifactorial. Causes include acute alcohol intoxication, possible alcohol ketoacidosis, and lactic acidosis. Lactic acidosis could be secondary to decreased hepatic clearance as well as underlying starvation. I do not have any other signs of SIRS or infection besides tachycardia and elevated lactic acid at this time. Patient did receive at least 30 mL/kg of IV fluids (combination of banana bag, normal saline, and D5 NS). Patient had recurrent hypoglycemia despite p.o. glucose x2. She was then treated with D50 IV push followed by D5 normal saline drip at 150 mL/h. Case was discussed with critical care attending who did not advise bicarb drip at this time as long as mental status is normal. Agrees with continue hydration and glucose containing fluids. Patient did receive 1 dose of Ativan prior to alcohol level resulting. She does have persistent tachycardia and has a history of carvedilol use but has not noncompliant for months. No signs of DKA or bowel ischemia. Patient reports hematemesis and blood in stool. Rectal exam deferred due to current menses. Nurse reports there was no blood in her vomitus in the ED. Patient does not have anemia at this time. Patient require at least IMCU admission for further treatment. Critical Care Time: Yes Critical care time in (mins) excluding proc time.: 35 Critical care attestation.: If time is entered above; I have spent that time in minutes in the direct care of this critically ill patient, excluding procedure time. Critical Care Time: 35 Minutes of critical care time excluding procedures were used in the care of the patient. I discussed treatment plan with the nursing team members. I reviewed electronic record. I spoke with family to obtain medical history. Patient required multiple interventions and reassessments. Spoke with hospita list and consultants for collaborative care ED Disposition Clinical Impression: Alcoholic ketoacidosis, EtOH dependence, Acute alcohol intoxication, Lactic ac idosis, Nausea and vomiting, Acute renal insufficiency Disposition: ADMITTED INPATIENT Is pt being admited?: Yes Condition: Stable
[2021-11-25] MEDS ORDERED: D5W/0.9% NACL 1,000 ML IV SCH (01:00)
[2021-11-25 01:01] LABS: Hematocrit 36.5 % (30.3-42.9); Hemoglobin 10.5 gm/dl (10.1-14.3); Mean Corpuscular HGB Conc 29 % (30-34); Mean Corpuscular Volume 73 fl (79-97); Platelet Count 319 K/mm3 (140-440)
[2021-11-25 01:02] LABS: Albumin 4.3 g/dL (3.9-5)
[2021-11-25 01:04] LABS: INR 1.1 (0.87-1.13)
[2021-11-25 01:05] LABS: Partial Thromboplastin Time 30.9 Sec. (24.2-36.6)
[2021-11-25 01:14] LABS: Free T4 (Free Thyroxine) 0.45 ng/dL (0.76-1.46)
--- NOTE | 2021-11-25 01:42 | XRay Report ---
CHEST 1 VIEW 11/25/2021 1:24 AM INDICATION / CLINICAL INFORMATION: GI Bleed, vomiting. COMPARISON: 11/30/2019. FINDINGS: SUPPORT DEVICES: None. HEART / MEDIASTINUM: No significant abnormality. LUNGS / PLEURA: No significant pulmonary or pleural abnormality. No pneumothorax. ADDITIONAL FINDINGS: No significant additional findings. IMPRESSION: No acute abnormality. Signer Name: Gordon Baltazar MD Signed: 11/25/2021 1:38 AM Workstation Name: [id number]
[2021-11-25] MEDS ORDERED: DEXTROSE 50% IN WATER (25GM) 50 ML SYRINGE IV ONE (02:21)
[2021-11-25] MEDS ORDERED: DEXTROSE 50% IN WATER (25GM) 50 ML VIAL IV ONE (02:36)
[2021-11-25 03:07] LABS: Anisocytosis 1+; Basophils % (Manual) 0 % (0.0-1.8); Total Cells Counted 100
[2021-11-25 03:08] LABS: Hypochromasia 1+; Platelet Estimate Consistent w Auto
--- NOTE | 2021-11-25 03:08 | Cat Scan Report ---
CT ABDOMEN AND PELVIS WITH CONTRAST INDICATION / CLINICAL INFORMATION: vomiting blood, blood in stool, menses. TECHNIQUE: Axial CT images were obtained through the abdomen and pelvis after Omnipaque 300, 100 cc I V contrast. All CT scans at this location are performed using CT dose reduction for ALARA by means o f automated exposure control. COMPARISON: 09/29/2019. FINDINGS: LOWER CHEST: No significant abnormality. LIVER: Large with prominent diffuse fatty infiltration is less prominent than the previous exam. GALLBLADDER: No significant abnormality. BILE DUCTS: No significant abnormality. PANCREAS: No significant abnormality. SPLEEN: No significant abnormality. ADRENALS: No significant abnormality. RIGHT KIDNEY / URETER: No significant abnormality. LEFT KIDNEY / URETER: No significant abnormality. STOMACH / SMALL BOWEL: Moderate gastric distention. No small bowel distention. COLON: No significant abnormality. APPENDIX: No significant abnormality. PERITONEUM: No free fluid. No free air. No fluid collection. LYMPH NODES: No significant adenopathy. VASCULAR STRUCTURES: No significant abnormality. URINARY BLADDER: No significant abnormality. REPRODUCTIVE ORGANS: No significant abnormality. ADDITIONAL FINDINGS: None. SKELETAL SYSTEM: No significant abnormality. IMPRESSION: 1. Large, fatty liver with mild improvement from the previous exam. 2. Negative for obstruction or localized inflammation. 3. Moderate gastric distention. Signer Name: Gordon Baltazar MD Signed: 11/25/2021 3:03 AM Workstation Name: [id number]
[2021-11-25] MEDS: D5W/0.9% NACL 1,000 ML IV SCH (03:41)
[2021-11-25] MEDS ORDERED: MORPHINE 4 MG/1 ML INJ IV PRN (04:04)
[2021-11-25] MEDS ORDERED: DEXTROSE 50% IN WATER (25GM) 50 ML SYRINGE IV PRN (04:04)
--- NOTE | 2021-11-25 04:18 | History and Physical Report ---
History of Present Illness Date of examination: 11/25/21 Date of admission: 11/25/21 Chief complaint: Nausea and Vomiting History of present illness: 41-year-old female with known history of hypertension, alcohol abuse, and history of seizure disorder presenting in the emergency room today with complaint of nausea and vomiting. Patient states she has vomited some blood and also has some yellow bloody stool earlier today. She drinks alcohol almost on a daily basis. Last alcohol intake was about 8 AM today. Patient denies any chest pain or shortness of breath, denies any headache or dizziness and no diaphoresis. She however complains abdominal pain and feeling very thirsty. Accu-Chek upon arrival of EMS was said to be 40 and she was given oral glucose. Blood glucose improved to about 136 but later went down to 57. She was provided with orange juice. She denies any use of nonsteroidal anti-inflammatory medication. She denied any history of GI bleed. Work-up in the emergency room today, labs significant for CO2 of 5 venous pH of 7.056, BUN of 30 and creatinine 1.5. Lactic acid of 12.5. Serum alcohol was 0.23. Chest x-ray shows no acute findings. CT abdomen and pelvis shows large, fatty liver with mild improvement from the previous exam. Moderate gastric distention. No obstruction or localized inflammation. Patient being admitted for alcoholic ketoacidosis, alcohol intoxication, lactic acidosis, ARACELI. Past History Past Medical History: acute VT, seizures, other (History of SVT,elbow surgeries? BILATERAL CARPAL TUNNEL SURGERY 2016, tracheostomy 2020 after cardiac arrest secondary to "alcohol abuse.") Past Surgical History: No surgical history Social history: smoking (Current daily smoker), alcohol abuse (Drinks alcohol on a daily basis) Family history: no significant family history Medications and Allergies Allergies Allergy/AdvReac Type Severity Reaction Status Date / Time bee venom protein (honey bee) Allergy Unknown Verified 10/30/21 11:43 metoprolol Allergy Hives Verified 10/30/21 11:43 tramadol Allergy Hives Verified 10/30/21 11:43 Home Medications Medication Instructions Recorded Confirmed Last Taken Type chlordiazePOXIDE [Librium] 25 mg PO 4XD 04/20/20 04/20/20 Unknown History Active Meds: Active Medications Dextrose/Sodium Chloride (D5ns) 1,000 mls @ 150 mls/hr IV DIRECT MELINDA Last Admin: 11/25/21 03:41 Dose: 150 mls/hr Review of Systems Constitutional: no fever, no chills Ears, nose, mouth and throat: no nasal congestion, no sore throat Cardiovascular: no chest pain, no palpitations Respiratory: no cough, no shortness of breath Gastrointestinal: abdominal pain, nausea, vomiting, no diarrhea Genitourinary Female: hematuria, no flank pain, no dysuria Musculoskeletal: no neck pain, no low back pain Integumentary: no rash, no pruritis Neurological: no headaches, no confusion Psychiatric: no anxiety, no depression Endocrine: no polyphagia, no excessive thirst, no polyuria, no nocturia Exam - Constitutional Vitals: Temp Pulse Resp BP Pulse Ox 98 F 153 H 22 133/61 100 11/24/21 22:21 11/25/21 04:03 11/25/21 04:03 11/25/21 04:03 11/25/21 04:03 General appearance: Present: no acute distress, well-nourished - EENT Eyes: Present: PERRL, EOM intact. Absent: scleral icterus - Neck Neck: Present: supple, normal ROM - Respiratory Respiratory: bilateral: CTA - Cardiovascular Rhythm: regular Heart Sounds: Present: S1 & S2. Absent: gallop, systolic murmur, diastolic murmur, rub, click - Extremities Extremities: no ischemia, pulses intact, pulses symmetrical, No edema, normal temperature, normal color, Full ROM Peripheral Pulses: within normal limits - Abdominal General gastrointestinal: Present: soft, non-distended, normal bowel sounds, mass. Absent: non-tender - Integumentary Integumentary: Present: clear, warm, dry, normal turgor. Absent: rash - Musculoskeletal Musculoskeletal: strength equal bilaterally - Psychiatric Psychiatric: appropriate mood/affect, intact judgment & insight, memory intact, cooperative - Neurologic Neurologic: CNII-XII intact, no focal deficits, moves all extremities Results - Labs CBC & Chem 7: 11/25/21 00:22 11/25/21 00:22 Labs: Abnormal lab results 11/25/21 11/25/21 11/25/21 Range/Units : 00:22 00:22 MCV 73 L (79-97) fl MCH 21 L (28-32) pg MCHC 29 L (30-34) % RDW 28.0 H (13.2-15.2) % Seg Neuts % (Manual) 88.0 H (40.0-70.0) % Lymphocytes % (Manual) 7.0 L (13.4-35.0) % Nucleated RBC % 2.0 H (0.0-0.9) % Seg Neutrophils # Man 9.2 H (1.8-7.7) K/mm3 Lymphocytes # (Manual) 0.7 L (1.2-5.4) K/mm3 PT 15.5 H (12.2-14.9) Sec. VBG pH (7.320-7.420) Chloride 96.7 L (98-107) mmol/L Carbon Dioxide 5 L* (22-30) mmol/L Creatinine 1.5 H (0.6-1.2) mg/dL Glucose 45 L (65-100) mg/dL POC Glucose (70-105) mg/dL Lactic Acid (0.7-2.0) mmol/L AST 181 H (5-40) units/L Alkaline Phosphatase 143 H (35-129) units/L Lipase (13-60) units/L Free T4 (0.76-1.46) ng/dL Plasma/Serum Alcohol (0-0.07) % 11/25/21 11/25/21 11/25/21 Range/Units 00:22 00:28 01:49 MCV (79-97) fl MCH (28-32) pg MCHC (30-34) % RDW (13.2-15.2) % Seg Neuts % (Manual) (40.0-70.0) % Lymphocytes % (Manual) (13.4-35.0) % Nucleated RBC % (0.0-0.9) % Seg Neutrophils # Man (1.8-7.7) K/mm3 Lymphocytes # (Manual) (1.2-5.4) K/mm3 PT (12.2-14.9) Sec. VBG pH (7.320-7.420) Chloride (98-107) mmol/L Carbon Dioxide (22-30) mmol/L Creatinine (0.6-1.2) mg/dL Glucose (65-100) mg/dL POC Glucose (70-105) mg/dL Lactic Acid 12.50 H* (0.7-2.0) mmol/L AST (5-40) units/L Alkaline Phosphatase (35-129) units/L Lipase 7 L (13-60) units/L Free T4 0.45 L (0.76-1.46) ng/dL Plasma/Serum Alcohol (0-0.07) % 11/25/21 11/25/21 11/25/21 Range/Units 01:49 01:49 02:15 MCV (79-97) fl MCH (28-32) pg MCHC (30-34) % RDW (13.2-15.2) % Seg Neuts % (Manual) (40.0-70.0) % Lymphocytes % (Manual) (13.4-35.0) % Nucleated RBC % (0.0-0.9) % Seg Neutrophils # Man (1.8-7.7) K/mm3 Lymphocytes # (Manual) (1.2-5.4) K/mm3 PT (12.2-14.9) Sec. VBG pH 7.056 L* (7.320-7.420) Chloride (98-107) mmol/L Carbon Dioxide (22-30) mmol/L Creatinine (0.6-1.2) mg/dL Glucose (65-100) mg/dL POC Glucose 27 L (70-105) mg/dL Lactic Acid (0.7-2.0) mmol/L AST (5-40) units/L Alkaline Phosphatase (35-129) units/L Lipase (13-60) units/L Free T4 (0.76-1.46) ng/dL Plasma/Serum Alcohol 0.23 H (0-0.07) % 11/25/21 Range/Units 03:50 MCV (79-97) fl MCH (28-32) pg MCHC (30-34) % RDW (13.2-15.2) % Seg Neuts % (Manual) (40.0-70.0) % Lymphocytes % (Manual) (13.4-35.0) % Nucleated RBC % (0.0-0.9) % Seg Neutrophils # Man (1.8-7.7) K/mm3 Lymphocytes # (Manual) (1.2-5.4) K/mm3 PT (12.2-14.9) Sec. VBG pH (7.320-7.420) Chloride (98-107) mmol/L Carbon Dioxide (22-30) mmol/L Creatinine (0.6-1.2) mg/dL Glucose (65-100) mg/dL POC Glucose 172 H (70-105) mg/dL Lactic Acid (0.7-2.0) mmol/L AST (5-40) units/L Alkaline Phosphatase (35-129) units/L Lipase (13-60) units/L Free T4 (0.76-1.46) ng/dL Plasma/Serum Alcohol (0-0.07) % Assessment and Plan Assessment: 1. Alcoholic ketoacidosis 2. Alcohol intoxication 3. Lactic acidosis 4. Intractable nausea and vomiting 5. Acute renal insufficiency 6. Hypoglycemia Plan: 1. Patient admitted and placed on IV fluid-dextrose normal saline 2. We will monitor chemistry closely 3. We will monitor for alcohol withdrawal symptoms 4. We will resume routine home medications once reconciled 5. Counseled on quitting alcohol abuse DVT prophylaxis: Subcutaneous heparin CODE STATUS: Full code
[2021-11-25] MEDS ORDERED: LORazepam 2 MG/ML VIAL IV PRN (05:50)
[2021-11-25] MEDS: LORazepam 2 MG/ML VIAL IV PRN ×7 (06:25→23:24)
[2021-11-25 07:31] LABS: Amphetamine Screen,Urine Negative; Benzodiazepines Screen,Urine Negative; Cannabinoid Screen,Urine Negative; Cocaine Screen,Urine Negative; Methadone Screen,Urine Negative; Opiate Screen,Urine Negative
[2021-11-25 07:42] LABS: Bacteria,Urine 1+ /HPF (Negative); Bilirubin,Urine NEG (Negative); Blood,Urine LG (Negative); Color,Urine Yellow (Yellow); Hyaline Casts,Urine 7 /LPF; Mucus,Urine FEW /HPF; Urobilinogen,Urine < 2.0 mg/dL (<2.0)
[2021-11-25] MEDS: ONDANSETRON 4 MG/2 ML INJ IV PRN ×4 (08:09→21:36)
[2021-11-25] MEDS: MORPHINE 2 MG/1 ML INJ IV PRN ×4 (08:09→23:26)
[2021-11-25] MEDS: THIAMINE 100 MG TAB PO SCH (11:33)
[2021-11-25] MEDS: ACETAMINOPHEN 325 MG TAB PO PRN ×2 (11:33→20:07)
[2021-11-25] MEDS: NICOTINE 14 MG/24 HR PATCH TD SCH (12:30)
--- NOTE | 2021-11-25 13:01 | Progress Note ---
Subjective Date of service: 11/25/21 Objective - Constitutional Vitals: Vital Signs - 12hr 11/25/21 11/25/21 11/25/21 01:15 01:31 01:45 Pulse Rate 121 H 126 H 130 H Respiratory 23 24 22 Rate Blood Pressure 123/63 111/53 111/53 O2 Sat by Pulse 100 98 Oximetry 11/25/21 11/25/21 11/25/21 02:01 02:15 02:31 Pulse Rate 125 H 127 H 141 H Respiratory 25 H 21 15 Rate Blood Pressure 111/53 118/55 133/61 O2 Sat by Pulse 99 99 Oximetry 11/25/21 11/25/21 11/25/21 02:46 03:49 04:03 Pulse Rate 136 H 136 H 153 H Respiratory 18 22 22 Rate Blood Pressure 133/61 133/61 O2 Sat by Pulse 100 99 100 Oximetry 11/25/21 11/25/21 11/25/21 04:15 04:31 04:45 Pulse Rate 136 H 127 H 120 H Respiratory 20 24 22 Rate Blood Pressure 107/61 113/59 113/59 O2 Sat by Pulse 99 98 100 Oximetry 11/25/21 11/25/21 11/25/21 05:01 05:15 05:31 Pulse Rate 121 H 120 H 118 H Respiratory 22 21 22 Rate Blood Pressure 108/57 108/57 105/53 O2 Sat by Pulse 98 99 100 Oximetry 11/25/21 11/25/21 05:45 06:01 Pulse Rate 116 H 130 H Respiratory 23 17 Rate Blood Pressure 105/53 103/54 O2 Sat by Pulse 100 100 Oximetry - Labs CBC & Chem 7: 11/25/21 00:22 11/25/21 00:22 Labs: Abnormal lab results 11/25/21 11/25/21 11/25/21 Range/Units 00:22 00:22 00:22 MCV 73 L (79-97) fl MCH 21 L (28-32) pg MCHC 29 L (30-34) % RDW 28.0 H (13.2-15.2) % Seg Neuts % (Manual) 88.0 H (40.0-70.0) % Lymphocytes % (Manual) 7.0 L (13.4-35.0) % Nucleated RBC % 2.0 H (0.0-0.9) % Seg Neutrophils # Man 9.2 H (1.8-7.7) K/mm3 Lymphocytes # (Manual) 0.7 L (1.2-5.4) K/mm3 PT 15.5 H (12.2-14.9) Sec. VBG pH (7.320-7.420) Chloride 96.7 L (98-107) mmol/L Carbon Dioxide 5 L* (22-30) mmol/L Creatinine 1.5 H (0.6-1.2) mg/dL Glucose 45 L (65-100) mg/dL POC Glucose (70-105) mg/dL Lactic Acid (0.7-2.0) mmol/L AST 181 H (5-40) units/L Alkaline Phosphatase 143 H (35-129) units/L Lipase (13-60) units/L Free T4 (0.76-1.46) ng/dL Plasma/Serum Alcohol (0-0.07) % 11/25/21 11/25/21 11/25/21 Range/Units 00:22 00:28 01:49 MCV (79-97) fl MCH (28-32) pg MCHC (30-34) % RDW (13.2-15.2) % Seg Neuts % (Manual) (40.0-70.0) % Lymphocytes % (Manual) (13.4-35.0) % Nucleated RBC % (0.0-0.9) % Seg Neutrophils # Man (1.8-7.7) K/mm3 Lymphocytes # (Manual) (1.2-5.4) K/mm3 PT (12.2-14.9) Sec. VBG pH (7.320-7.420) Chloride (98-107) mmol/L Carbon Dioxide (22-30) mmol/L Creatinine (0.6-1.2) mg/dL Glucose (65-100) mg/dL POC Glucose (70-105) mg/dL Lactic Acid 12.50 H* (0.7-2.0) mmol/L AST (5-40) units/L Alkaline Phosphatase (35-129) units/L Lipase 7 L (13-60) units/L Free T4 0.45 L (0.76-1.46) ng/dL Plasma/Serum Alcohol (0-0.07) % 0711/25/21 11/25/21 Range/Units 01:49 01:49 02:15 MCV (79-97) fl MCH (28-32) pg MCHC (30-34) % RDW (13.2-15.2) % Seg Neuts % (Manual) (40.0-70.0) % Lymphocytes % (Manual) (13.4-35.0) % Nucleated RBC % (0.0-0.9) % Seg Neutrophils # Man (1.8-7.7) K/mm3 Lymphocytes # (Manual) (1.2-5.4) K/mm3 PT (12.2-14.9) Sec. VBG pH 7.056 L* (7.320-7.420) Chloride (98-107) mmol/L Carbon Dioxide (22-30) mmol/L Creatinine (0.6-1.2) mg/dL Glucose (65-100) mg/dL POC Glucose 27 L (70-105) mg/dL Lactic Acid (0.7-2.0) mmol/L AST (5-40) units/L Alkaline Phosphatase (35-129) units/L Lipase (13-60) units/L Free T4 (0.76-1.46) ng/dL Plasma/Serum Alcohol 0.23 H (0-0.07) % 11/25/21 11/25/21 11/25/21 Range/Units 03:50 04:00 06:03 MCV (79-97) fl MCH (28-32) pg MCHC (30-34) % RDW (13.2-15.2) % Seg Neuts % (Manual) (40.0-70.0) % Lymphocytes % (Manual) (13.4-35.0) % Nucleated RBC % (0.0-0.9) % Seg Neutrophils # Man (1.8-7.7) K/mm3 Lymphocytes # (Manual) (1.2-5.4) K/mm3 PT (12.2-14.9) Sec. VBG pH (7.320-7.420) Chloride (98-107) mmol/L Carbon Dioxide (22-30) mmol/L Creatinine (0.6-1.2) mg/dL Glucose (65-100) mg/dL POC Glucose 172 H 213 H (70-105) mg/dL Lactic Acid 11.50 H* (0.7-2.0) mmol/L AST (5-40) units/L Alkaline Phosphatase (35-129) units/L Lipase (13-60) units/L Free T4 (0.76-1.46) ng/dL Plasma/Serum Alcohol (0-0.07) % 11/25/21 11/25/21 Range/Units 11:26 11:26 MCV (79-97) fl MCH (28-32) pg MCHC (30-34) % RDW (13.2-15.2) % Seg Neuts % (Manual) (40.0-70.0) % Lymphocytes % (Manual) (13.4-35.0) % Nucleated RBC % (0.0-0.9) % Seg Neutrophils # Man (1.8-7.7) K/mm3 Lymphocytes # (Manual) (1.2-5.4) K/mm3 PT (12.2-14.9) Sec. VBG pH (7.320-7.420) Chloride (98-107) mmol/L Carbon Dioxide (22-30) mmol/L Creatinine (0.6-1.2) mg/dL Glucose (65-100) mg/dL POC Glucose (70-105) mg/dL Lactic Acid 6.70 H* (0.7-2.0) mmol/L AST (5-40) units/L Alkaline Phosphatase (35-129) units/L Lipase (13-60) units/L Free T4 (0.76-1.46) ng/dL Plasma/Serum Alcohol 0.18 H (0-0.07) %
[2021-11-25] MEDS: HEPARIN 5,000 UNIT/1 ML VIAL SUB-Q SCH ×3 (15:24→21:27)
--- NOTE | 2021-11-25 19:55 | Electrocardiograph Report ---
[facility] Test Date: 2021-11-25 Test Time: 00:52:47 Pat Name: TEOFILO BAZAN Department: Room: [facility] 1 Gender: F Bobbin Presser: RIKA : 1980 Requested By: KAILASH TORRES Order Number: [id number] Reading MD: Esme Birmingham Measurements Intervals Hurley Rate: 127 P: 71 NE: 125 QRS: 45 QRSD: 79 T: 103 QT: 344 QTc: 501 Interpretive Statements Sinus tachycardia No previous ECG available for comparison Electronically Signed On 11-25-2021 19:55:10 EDT by Esme Birmingham
[2021-11-26] MEDS: LORazepam 2 MG/ML VIAL IV PRN ×5 (01:41→20:10)
[2021-11-26] MEDS: guaiFENesin 100 MG/5 ML ORAL LIQD PO PRN ×2 (01:41→16:34)
[2021-11-26] MEDS: ONDANSETRON 4 MG/2 ML INJ IV PRN ×4 (01:42→16:49)
[2021-11-26] MEDS: D5W/0.9% NACL 1,000 ML IV SCH (03:08)
[2021-11-26] MEDS ORDERED: METOCLOPRAMIDE 10 MG/2 ML INJ IV ONE (03:10)
[2021-11-26 05:04] LABS: Hematocrit 27.4 % (30.3-42.9); Hemoglobin 8.5 gm/dl (10.1-14.3); Mean Corpuscular HGB Conc 31 % (30-34); Platelet Count 141 K/mm3 (140-440); Red Blood Count 4.04 M/mm3 (3.65-5.03)
[2021-11-26 05:11] LABS: Mean Corpuscular Volume 68 fl (79-97); Red Cell Distribution Width 27.7 % (13.2-15.2)
[2021-11-26 05:21] LABS: Blood Urea Nitrogen 4 mg/dL (7-17); Calcium 8.7 mg/dL (8.4-10.2); Hemolysis Index 6
[2021-11-26 05:22] LABS: BUN/Creatinine Ratio 6
[2021-11-26] MEDS: HEPARIN 5,000 UNIT/1 ML VIAL SUB-Q SCH ×3 (05:58→22:11)
[2021-11-26 06:58] LABS: Anisocytosis 3+; Eosinophils % (Manual) 0 % (0.0-4.3); Hypochromasia 2+; Total Cells Counted 100
[2021-11-26 07:06] LABS: Rouleaux Few
[2021-11-26 07:13] LABS: Platelet Estimate Consistent w Auto
--- NOTE | 2021-11-26 09:44 | Event Note ---
Date: 11/25/21 Patient seen and examined, vitals noted, serum chemistry results noted This is the second visit after midnight 41-year-old -[place] female presented with alcohol intoxication, severe metabolic acidosis Continue to follow clinically, monitor CO2 level, placed on CIWA protocol Follow a.m. labs
[2021-11-26] MEDS: MORPHINE 2 MG/1 ML INJ IV PRN ×2 (10:56→16:36)
[2021-11-26] MEDS: THIAMINE 100 MG TAB PO SCH (10:58)
[2021-11-26] MEDS: NICOTINE 14 MG/24 HR PATCH TD SCH (10:58)
[2021-11-26] MEDS ORDERED: cloNIDine TTS 0.2 MG/24 HR PATCH TD SCH (12:00)
--- NOTE | 2021-11-26 13:52 | Progress Note ---
Assessment and Plan 41-year-old female with known history of hypertension, alcohol abuse, and history of seizure disorder presenting in the emergency room with complaint of nausea and vomiting. Accu-Chek upon arrival of EMS was said to be 40 and she was given oral glucose. Blood glucose improved to about 136 but later went down to 57. She was provided with orange juice. Work-up in the emergency room: labs significant for CO2 of 5 venous pH of 7.056, BUN of 30 and creatinine 1.5. Lactic acid of 12.5. Serum alcohol was 0.23. Chest x-ray shows no acute findings. CT abdomen and pelvis shows large, fatty liver with mild improvement from the previous exam. Moderate gastric distention. No obstruction or localized inflammation. Patient was admitted for alcoholic ketoacidosis, alcohol intoxication, lactic acidosis, ARACELI. Assessment: -- Alcoholic ketoacidosis -- Alcohol intoxication -- Lactic acidosis -- Intractable nausea and vomiting -- Acute renal insufficiency/ARACELI due to vasomotor nephropathy, resolved --Hypoglycemia -- HTN -- Seizure disorder, not on meds Plan: -- Patient admitted and placed on IV fluid-dextrose normal saline --monitor chemistry closely --monitor for alcohol withdrawal symptoms, placed on CIWA protocol --resume routine home medications once reconciled -- Counseled on quitting alcohol abuse -- if clinically stable possible d/c tomorrow DVT prophylaxis: Subcutaneous heparin CODE STATUS: Full code Subjective Date of service: 11/26/21 Interval history: Patient seen and examined. Medical records and medication list reviewed. No acute event overnight noted by the RN. Patient complaining back pain. Patient is tolerating diet. Drowsy and speaks only few words Objective - Exam Narrative Exam: GENERAL: well-developed and well-nourished AAF lying on bed appeared to be in no discomfort but appears drowsy HEENT: Normocephalic. Atraumatic. No conjunctival congestion or icterus. Patient has moist mucous membranes. NECK: Supple. Trachea midline. CHEST/LUNGS: Clear to auscultated bilaterally, breathing nonlabored. No wheezes crackles or rhonchi. HEART/CARDIOVASCULAR: Regular in rate and rhythm. S1 and S2 positive. ABDOMEN: Abdomen is soft, nontender. Patient has normal bowel sounds. SKIN: There is no rash. Warm and dry. NEURO: No focal motor deficit. Follows command. MUSCULOSKELETAL: No joint effusion or tenderness. EXTRIMITY: No edema, no cyanosis or clubbing. PSYCH: Cooperative. - Constitutional Vitals: Vital Signs - 12hr 11/26/21 11/26/21 11/26/21 02:13 03:06 05:57 Temperature 97.7 F Pulse Rate 94 H 104 H Respiratory 18 Rate Blood Pressure 161/99 [Left] Blood Pressure 155/89 [Right] O2 Sat by Pulse 100 100 Oximetry 11/26/21 10:50 Temperature 97.4 F L Pulse Rate 96 H Respiratory 20 Rate Blood Pressure [Left] Blood Pressure 133/84 [Right] O2 Sat by Pulse 100 Oximetry - Labs CBC & Chem 7: 11/26/21 03:57 11/26/21 03:57 Labs: Abnormal lab results 11/25/21 11/26/21 11/26/21 Range/Units 21:45 03:57 03:57 WBC 3.0 L (4.5-11.0) K/mm3 Hgb 8.5 L (10.1-14.3) gm/dl Hct 27.4 L D (30.3-42.9) % MCV 68 L (79-97) fl MCH 21 L (28-32) pg RDW 27.7 H (13.2-15.2) % Lymphocytes % (Manual) 39.0 H (13.4-35.0) % Seg Neutrophils # Man 1.7 L (1.8-7.7) K/mm3 Sodium 136 L D (137-145) mmol/L BUN 4 L (7-17) mg/dL Glucose 115 H (65-100) mg/dL POC Glucose 115 H (70-105) mg/dL 11/26/21 11/26/21 Range/Units 07:54 11:10 WBC (4.5-11.0) K/mm3 Hgb (10.1-14.3) gm/dl Hct (30.3-42.9) % MCV (79-97) fl MCH (28-32) pg RDW (13.2-15.2) % Lymphocytes % (Manual) (13.4-35.0) % Seg Neutrophils # Man (1.8-7.7) K/mm3 Sodium (137-145) mmol/L BUN (7-17) mg/dL Glucose (65-100) mg/dL POC Glucose 142 H 166 H (70-105) mg/dL
[2021-11-26] MEDS ORDERED: oxyCODONE /ACETAMINOPHEN 5-325MG TAB PO ONE (22:15)
[2021-11-27] MEDS: HEPARIN 5,000 UNIT/1 ML VIAL SUB-Q SCH ×2 (05:54→13:56)
[2021-11-27] MEDS: D5W/0.9% NACL 1,000 ML IV SCH (05:56)
[2021-11-27] MEDS ORDERED: oxyCODONE /ACETAMINOPHEN 5-325MG TAB PO ONE (06:45)
--- NOTE | 2021-11-27 09:50 | Discharge Summary ---
Providers - Providers Date of Admission: 11/25/21 04:06 Date of discharge: 11/27/21 Attending physician: KAMRYN REYES 11/25/21 04:06 Consult to Dietitian/Nutrition [CONS] Routine Physician Instructions: Reason For Exam: Reason for Consult: Diet education 11/25/21 13:57 Midline [Consult to PICC Line RN] [CONS] Routine Reason For Exam: hard stick Type Line:: Midline Primary care physician: MICHAEL GALEANA Hospitalization Condition: Stable Hospital course: -- Alcoholic ketoacidosis -- Alcohol intoxication -- Lactic acidosis -- Intractable nausea and vomiting -- Acute renal insufficiency/ARACELI due to vasomotor nephropathy, resolved --Hypoglycemia -- HTN -- Seizure disorder, not on meds Disposition: 01 HOME / SELF CARE / HOMELESS Final Discharge Diagnosis (Prints w/discharge instructions): -- Alcoholic ketoacidosis. -- Alcohol intoxication. -- Lactic acidosis. -- Intractable nausea and vomiting. -- Acute renal insufficiency/ARACELI due to vasomotor nephropathy, resolved. --Hypoglycemia. -- HTN. -- Seizure disorder, not on meds Time spent for discharge: 35 min Core Measure Documentation - Palliative Care Palliative Care/ Comfort Measures: Not Applicable - Core Measures Any of the following diagnoses?: none Exam - Constitutional Vitals: Temp Pulse Resp BP Pulse Ox 97.4 F L 96 H 17 133/84 100 11/26/21 10:50 11/26/21 10:50 11/27/21 02:00 11/26/21 10:50 11/27/21 02:00 Plan Activity: advance as tolerated, fall precautions Diet: regular Special Instructions: smoking cessation Additional Instructions: Strongly advised to quit alcohol intake. Advised smoking cessation. Also advised to seek alcohol rehabilitation. And joint alcohol Anonymous support group. If you have worsening symptoms contact MD or go to the nearest emergency room as needed Follow up with: MICHAEL GALEANA MD [Primary Care Provider] - 3-5 Days Prescriptions: cloNIDine-TTS PATCH [Catapres-Tts 0.2mg Patch] 0.2 mg TD Mo@1000 #4 patch Folic Acid [Folvite] 1 mg PO QDAY #30 tablet Nicotine [Habitrol] 14 mg TD QDAY #30 patch Pantoprazole [Protonix TAB] 40 mg PO DAILY #14 tablet Thiamine [Vitamin B-1] 100 mg PO QDAY #30 tablet
[2021-11-27] MEDS ORDERED: PANTOPRAZOLE 40 MG TAB PO SCH (10:00)
[2021-11-27] MEDS: NICOTINE 14 MG/24 HR PATCH TD SCH (10:15)
[2021-11-27] MEDS: THIAMINE 100 MG TAB PO SCH (10:16)
[2021-11-27 11:09] VITALS: BP 156/98
== END 2021-11-27 15:57 | disposition home or self-care (01) | DRG 683 ==
LOC: ED 22:20 → 3A 11-25 04:06
PROVIDERS: ADMIT Internal Medicine Geriatric Medicine; ATTEND Internal Medicine
DX: N17.0 Acute kidney failure with tubular necrosis (principal); E87.2 Acidosis; E88.89 Other specified metabolic disorders; I10 Essential (primary) hypertension; I25.2 Old myocardial infarction; F17.200 Nicotine dependence, unspecified, uncomplicated; F10.20 Alcohol dependence, uncomplicated; Y90.9 Presence of alcohol in blood, level not specified; G40.909 Epilepsy, unspecified, not intractable, without status epilepticus; Z93.0 Tracheostomy status
CPT/HCPCS: 36415; 71045; 74177; 80048; 80053; 80307; 80320; 81001; 82140; 82805; 82962; 83690; 83735; 84439; 84443; 84703; 85007; 85025; 85610; 85730; 86850; 86900; 86901; 87040; 93005; 99406; G0378; J3490; C9113; G0480; J1644; J2060; J2270; J2405; J2765; J3411; J7030; J7042; Q9967

== ENCOUNTER 2021-12-21 12:49 | Emergency (ER) | payer SELFPAY ==
[2021-12-21 13:24] VITALS: BP 118/67
[2021-12-21] MEDS ORDERED: MECLIZINE 25 MG TAB PO ONE (13:54)
[2021-12-21] MEDS ORDERED: diphenhydrAMINE 50 MG/ML VIAL IV ONE (13:54)
[2021-12-21] MEDS ORDERED: SODIUM CHLORIDE 0.9% 1000 ML 1,000 ML IV ONE (13:54)
[2021-12-21] MEDS ORDERED: ONDANSETRON 4 MG/2 ML INJ IV ONE (13:54)
--- NOTE | 2021-12-21 13:57 | Emergency Department Report ---
ED General Adult HPI - General Chief complaint: Eye Problems Stated complaint: VISION PROBLEMS Time Seen by Provider: 12/21/21 13:25 Source: patient, old records reviewed Mode of arrival: Stretcher Limitations: No Limitations - History of Present Illness Initial comments: The patient presents to the emergency department with a chief complaint of dizziness that started this morning at 3 AM. Patient states that the dizziness makes her nauseated and she has had episodes of vomiting. Patient states movement of her head makes it worse. Patient also complains of left knee pain. Denies chest pain, shortness of breath, or headache. -: Sudden Severity scale (0 -10): 2 Quality: aching Consistency: constant Improves with: rest Worsens with: movement Associated Symptoms: nausea/vomiting Treatments Prior to Arrival: none - Related Data Home Medications Medication Instructions Recorded Confirmed Last Taken LORazepam [Ativan] 1 mg PO BID 11/26/21 11/26/21 Unknown chlordiazePOXIDE [Librium] 25 mg PO Q8H 11/26/21 11/26/21 Unknown Previous Rx's Medication Instructions Recorded Last Taken Type Folic Acid [Folvite] 1 mg PO QDAY #30 tablet 11/27/21 Unknown Rx Nicotine [Habitrol] 14 mg TD QDAY #30 patch 11/27/21 Unknown Rx Pantoprazole [Protonix TAB] 40 mg PO DAILY #14 tablet 11/27/21 Unknown Rx Thiamine [Vitamin B-1] 100 mg PO QDAY #30 tablet 11/27/21 Unknown Rx cloNIDine-TTS PATCH [Catapres-Tts 0.2 mg TD Mo@1000 #4 patch 11/27/21 Unknown Rx 0.2mg Patch] Allergies Allergy/AdvReac Type Severity Reaction Status Date / Time bee venom protein (honey bee) Allergy Unknown Verified 12/21/21 12:57 metoprolol Allergy Hives Verified 12/21/21 12:57 tramadol Allergy Hives Verified 12/21/21 12:57 ED Review of Systems ROS: Stated complaint: VISION PROBLEMS Other details as noted in HPI Constitutional: denies: chills, fever Eyes: denies: eye pain, eye discharge, vision change ENT: denies: ear pain, throat pain Respiratory: denies: cough, shortness of breath, wheezing Cardiovascular: denies: chest pain, palpitations Endocrine: no symptoms reported Gastrointestinal: denies: abdominal pain, nausea, diarrhea Genitourinary: denies: urgency, dysuria, discharge Musculoskeletal: denies: back pain, joint swelling, arthralgia Skin: denies: rash, lesions Neurological: vertigo, other (Dizziness). denies: headache, weakness, paresthesias Psychiatric: denies: anxiety, depression Hematological/Lymphatic: denies: easy bleeding, easy bruising ED Past Medical Hx - Past Medical History Previous Medical History?: Yes Hx Hypertension: Yes Hx Heart Attack/AMI: Yes Hx Seizures: Yes (first on 09/25/2019) Hx Psychiatric Treatment: Yes (ETOH abuse) Additional medical history: history of SVT - Surgical History Additional Surgical History: elbow surgeries? BILATERAL CARPAL TUNNEL SURGERY 2016, tracheostomy 2020 after cardiac arrest secondary to "alcohol abuse." - Social History Smoking Status: Former Smoker - Medications Home Medications: Home Medications Medication Instructions Recorded Confirmed Last Taken Type LORazepam [Ativan] 1 mg PO BID 11/26/21 11/26/21 Unknown History chlordiazePOXIDE [Librium] 25 mg PO Q8H 11/26/21 11/26/21 Unknown History Folic Acid [Folvite] 1 mg PO QDAY #30 tablet 11/27/21 Unknown Rx Nicotine [Habitrol] 14 mg TD QDAY #30 patch 11/27/21 Unknown Rx Pantoprazole [Protonix TAB] 40 mg PO DAILY #14 tablet 11/27/21 Unknown Rx Thiamine [Vitamin B-1] 100 mg PO QDAY #30 tablet 11/27/21 Unknown Rx cloNIDine-TTS PATCH [Catapres-Tts 0.2 mg TD Mo@1000 #4 patch 11/27/21 Unknown Rx 0.2mg Patch] ED Physical Exam - General Limitations: No Limitations General appearance: alert, in no apparent distress - Head Head exam: Present: atraumatic, normocephalic - Eye Eye exam: Present: normal appearance, PERRL, EOMI - ENT ENT exam: Present: mucous membranes moist - Neck Neck exam: Present: normal inspection - Respiratory Respiratory exam: Present: normal lung sounds bilaterally. Absent: respiratory distress - Cardiovascular Cardiovascular Exam: Present: normal rhythm, tachycardia. Absent: systolic murmur, diastolic murmur, rubs, gallop - GI/Abdominal GI/Abdominal exam: Present: soft, normal bowel sounds. Absent: distended, tenderness - Extremities Exam Extremities exam: Present: normal inspection - Back Exam Back exam: Present: normal inspection - Neurological Exam Neurological exam: Present: alert, oriented X3, CN II-XII intact, other (able to recreate with rapid eye movement ). Absent: motor sensory deficit - Psychiatric Psychiatric exam: Present: normal affect, normal mood - Skin Skin exam: Present: warm, dry, intact, normal color. Absent: rash ED Course Vital Signs 12/21/21 12/21/21 12:52 13:09 Temperature 98.8 F 98.2 F Pulse Rate 108 H 96 H Respiratory 18 15 Rate Blood Pressure 118/67 Blood Pressure 118/68 118/67 [Left] O2 Sat by Pulse 95 95 Oximetry ED Medical Decision Making - Medical Decision Making The patient eloped from the emergency department before work-up could be completed. Efforts were made to locate the patient including checking all the bathrooms as well as checking it outside of the ED to no avail. Critical care attestation.: If time is entered above; I have spent that time in minutes in the direct care of this critically ill patient, excluding procedure time. ED Disposition Clinical Impression: Dizziness Disposition: 07 LEFT AWOL/ELOPED Is pt being admited?: No Does the pt Need Aspirin: No Condition: Stable Instructions: Dizziness Referrals: MICHAEL GALEANA MD [Staff Physician] - 3-5 Days
--- NOTE | 2021-12-21 14:31 | Cat Scan Report ---
CT head/brain wo con INDICATION / CLINICAL INFORMATION: 41 years Female; dizziness. TECHNIQUE: Routine CT head without contrast. All CT scans at this location are performed using CT dos e reduction for ALARA by means of automated exposure control. COMPARISON: The study is compared to the previous CT of 09/24/2019. FINDINGS: BRAIN / INTRACRANIAL CONTENTS: The motion degrades the image quality at. However, the brain appears t o demonstrate appropriate attenuation without significant interval change. The ventricular system rem ains within normal limits in size and configuration. There is no clear CT evidence of acute intracran ial hemorrhage or significant mass effect. ORBITS: No significant abnormality of visualized orbits. SINUSES / MASTOIDS: No significant abnormality in the visualized paranasal sinuses or mastoid air jamal ls. CRANIOCERVICAL JUNCTION: No significant abnormality. ADDITIONAL FINDINGS: None. IMPRESSION: 1. There is no clear CT evidence of acute intracranial process. Signer Name: Farooq Blue MD Signed: 12/21/2021 2:27 PM Workstation Name: [email or web address]
--- NOTE | 2021-12-21 14:55 | XRay Report ---
LEFT KNEE 2 VIEWS INDICATION / CLINICAL INFORMATION: Fall with left knee pain. COMPARISON: None available. FINDINGS: BONES / JOINT(S): The joint spaces are well-maintained. No significant arthritis. There is no evidenc e of acute fracture, subluxation or joint effusion. SOFT TISSUES: No significant abnormality. ADDITIONAL FINDINGS: None. IMPRESSION: No acute findings. Signer Name: Nicolás Degroot MD Signed: 12/21/2021 2:50 PM Workstation Name: [email or web address]
[2021-12-21 15:03] LABS: Alanine Aminotransferase 23 units/L (7-56); Albumin 4.2 g/dL (3.9-5); Blood Urea Nitrogen 11 mg/dL (7-17); Calcium 8.4 mg/dL (8.4-10.2); Hemolysis Index 22
[2021-12-21 15:13] LABS: Mean Corpuscular HGB Conc 30 % (30-34); Mean Corpuscular Volume 71 fl (79-97); Platelet Count 314 K/mm3 (140-440); Red Blood Count 4.86 M/mm3 (3.65-5.03)
[2021-12-21 15:17] LABS: BUN/Creatinine Ratio 22
[2021-12-21 16:06] LABS: Hematocrit 34.6 % (30.3-42.9); Hemoglobin 10.4 gm/dl (10.1-14.3); Red Cell Distribution Width 30.8 % (13.2-15.2)
[2021-12-21 18:36] LABS: Anisocytosis 3+; Eosinophils % (Manual) 0 % (0.0-4.3); Hypochromasia 1+; Total Cells Counted 100
[2021-12-21 18:37] LABS: Platelet Estimate Consistent w Auto; Rouleaux Few
== END 2021-12-21 14:48 | disposition left against medical advice (07) ==
LOC: ED 12:49
DX: R42 Dizziness and giddiness (principal); I10 Essential (primary) hypertension; I21.9 Acute myocardial infarction, unspecified; R56.9 Unspecified convulsions; F10.129 Alcohol abuse with intoxication, unspecified; Z88.6 Allergy status to analgesic agent; Z91.030 Bee allergy status; Z91.09 Other allergy status, other than to drugs and biological substances; Z79.899 Other long term (current) drug therapy
CPT/HCPCS: 36415; 70450; 80053; 84702; 85007; 85025; 99284

== ENCOUNTER 2021-12-21 15:03 | Emergency (ER) | payer SELFPAY ==
[2021-12-21 15:25] VITALS: BP 151/99
== END 2021-12-21 19:30 | disposition left against medical advice (07) ==
LOC: ED 15:03
DX: Z00.00 Encounter for general adult medical examination without abnormal findings (principal); Z53.21 Procedure and treatment not carried out due to patient leaving prior to being seen by health care provider